=== PATIENT | female | born 1935 | race Caucasian/White ===

== ENCOUNTER → 2017-07-11 | Outpatient (CLI) | payer MEDICARE, BC ==
--- NOTE | 2017-07-11 16:13 | BD ---
EXAMINATION TYPE: MG DEXA axial skeleton. DATE OF EXAM: 07/11/2017 COMPARISON: 2013 CLINICAL HISTORY: 81-year-old female chronic steroids Height: 4'10 Weight: 119 FRAX RISK QUESTIONS: Alcohol (3 or more units per day): no Family History (Parent hip fracture): no Glucocorticoids (More than 3mos): yes (Ex: prednisone, prednisolone, methylprednisolone, dexamethasone, and hydrocortisone). History of Fracture in Adulthood: yes Secondary Osteoporosis: 1. Type 1 Diabetes: no 2. Hyperthyroidism: no 3. Menopause before 45: no 4. Malnutrition: no 5. Chronic liver disease: no Rheumatoid Arthritis: no Current Tobacco Use: no RISK FACTORS HISTORY OF: Spine Fracture: L1 When: 2013 Family History of Osteoporosis: Active: Postmenopausal woman: Lost more than 2 inches in height since high school: Poor Health: MEDICATIONS: Prednisone or other steroids: yes How Lon months Additional Medications: blood pressure, cholesterol, Additional History: EXAM MEASUREMENTS: Bone mineral densitometry was performed using the Xcedex System. Bone mineral density about the R hip (g/cm2): 0.704 Bone mineral density about the L hip (g/cm2): 0.692 T Score values are as follows: -----R Neck: -2.4 -----L Neck: -2.5 -----R Total: -1.8 -----L Total: -1.7 Bone mineral density has: Increased 4.8% since study of: 07/08/2014 IMPRESSION: Osteoporosis as indicated by T score values within the left femoral neck. There is increased fracture risk and therapy is usually indicated based on age. Re-Screen 1-2 years. NOTE: T-SCORE=SD OF THE YOUNG ADULT MEAN.
== END | disposition home or self-care (01) ==
LOC: RADBDWWP 14:28
PROVIDERS: ATTEND Internal Medicine
DX: M81.0 Age-related osteoporosis without current pathological fracture (principal); Z79.52 Long term (current) use of systemic steroids
CPT/HCPCS: 77080

== ENCOUNTER 2017-09-09 14:43 | Inpatient (IN) | payer MEDICARE, BC ==
[2017-09-09] MEDS ORDERED: IPRATROPIUM 0.5 MG/2.5 ML NEBU INHALATION STA (15:33)
[2017-09-09] MEDS ORDERED: ALBUTEROL NEBULIZED 2.5 MG/3 ML INHALATION STA (15:33)
[2017-09-09] MEDS ORDERED: DEXAMETHASONE SOD PHOSPHATE 10 MG/ML 1 ML VIAL IV STA (15:34)
[2017-09-09 15:43] LABS: Basophils # (A) 0.1 k/uL (0-0.2); Basophils % (A) 1 %; CH 30.2; Eosinophils # (A) 0.6 k/uL (0-0.7); Eosinophils % (A) 6 %; HCT 40.8 % (34.0-46.0); HDW 2.38; HGB 13.2 gm/dL (11.4-16.0); Luc # (Auto) 0.16; Luc % (Auto) 2; Lymphocytes # (A) 1.8 k/uL (1.0-4.8); Lymphocytes % (A) 20 %; MCH 30.8 pg (25.0-35.0); MCHC 32.4 g/dL (31.0-37.0); MCV 94.9 fL (80.0-100.0); Mean Platelet Volume 9.3; Monocytes # (A) 0.7 k/uL (0-1.0); Monocytes % (A) 8 %; Neutrophils % (A) 64 %; RDW 13.5 % (11.5-15.5); WBC 9.3 k/uL (3.8-10.6); WBC (Perox) 9.85
--- NOTE | 2017-09-09 15:47 | ED ---
General Adult HPI - General Chief complaint: Shortness of Breath Stated complaint: SOB Time Seen by Provider: 09/09/17 15:01 Source: patient, RN notes reviewed, old records reviewed Mode of arrival: wheelchair Limitations: no limitations - History of Present Illness Initial comments: 81-year-old female presents with chief complaint of worsening dyspnea. Patient has history of COPD, currently on 2 L of home O2. She states she has had approximately 2 weeks of worsening dyspnea. Denies chest pain. Denies fever. She also complains of some nasal congestion. She does have a mild cough which is unchanged from baseline. Patient was previously on steroids, she has been weaned off, she is currently taking 2.5 mg of prednisone daily. Patient does not take breathing treatments at home. - Related Data Home Medications Medication Instructions Recorded Confirmed Albuterol Inhaler [Ventolin Hfa 2 puff INHALATION RT-QID PRN 09/09/17 09/09/17 Inhaler] Alendronate Sodium [Fosamax] 70 mg PO WE 09/09/17 09/09/17 Cholecalciferol [Vitamin D3] 2,000 unit PO DAILY 09/09/17 09/09/17 Fluticasone/Vilanterol [Breo 1 puff INHALATION RT-DAILY 09/09/17 09/09/17 Ellipta 200-25 Mcg INH] Gabapentin [Neurontin] 300 mg PO TID 09/09/17 09/09/17 Ipratropium/Albuterol Sulfate 2 puff INHALATION RT-TID 09/09/17 09/09/17 [Combivent Respimat Inhaler] Losartan Potassium [Cozaar] 100 mg PO DAILY 09/09/17 09/09/17 Metoprolol Tartrate [Lopressor] 25 mg PO TID 09/09/17 09/09/17 Multivitamins, Thera [Multivitamin 1 tab PO DAILY 09/09/17 09/09/17 (formulary)] Simvastatin [Zocor] 20 mg PO HS 09/09/17 09/09/17 amLODIPine [Norvasc] 5 mg PO DAILY 09/09/17 09/09/17 predniSONE 2.5 mg PO DAILY 09/09/17 09/09/17 Allergies Allergy/AdvReac Type Severity Reaction Status Date / Time No Known Allergies Allergy Verified 09/09/17 15:15 Review of Systems ROS Statement: Those systems with pertinent positive or pertinent negative responses have been documented in the HPI. ROS Other: All systems not noted in ROS Statement are negative. Past Medical History Past Medical History: COPD History of Any Multi-Drug Resistant Organisms: None Reported Additional Past Surgical History / Comment(s): colonoscopy Past Psychological History: No Psychological Hx Reported Smoking Status: Former smoker Past Alcohol Use History: Daily Past Drug Use History: None Reported General Exam Limitations: no limitations General appearance: alert, in no apparent distress Head exam: Present: atraumatic, normocephalic Eye exam: Present: normal appearance, PERRL ENT exam: Present: normal exam Neck exam: Present: normal inspection. Absent: tenderness, meningismus Respiratory exam: Present: wheezes, decreased breath sounds, prolonged expiratory Cardiovascular Exam: Present: regular rate, normal rhythm GI/Abdominal exam: Present: soft. Absent: distended, tenderness Extremities exam: Present: normal inspection, normal capillary refill. Absent: pedal edema, calf tenderness Neurological exam: Present: alert, oriented X3, CN II-XII intact. Absent: motor sensory deficit Psychiatric exam: Present: normal affect, normal mood Skin exam: Present: warm, dry, intact. Absent: cyanosis, diaphoretic Course Vital Signs 09/09/17 09/09/17 09/09/17 14:45 15:48 15:58 Temperature 97.9 F Pulse Rate 103 H 94 86 Respiratory 20 22 Rate Blood Pressure 170/80 164/80 O2 Sat by Pulse 90 L 96 Oximetry 09/09/17 09/09/17 09/09/17 16:04 16:10 16:21 Temperature Pulse Rate 85 86 86 Respiratory Rate Blood Pressure O2 Sat by Pulse Oximetry 09/09/17 09/09/17 16:48 17:48 Temperature Pulse Rate 90 94 Respiratory 20 20 Rate Blood Pressure 164/79 161/77 O2 Sat by Pulse 95 95 Oximetry EKG Findings - EKG Comments: EKG Findings:: EKG shows normal sinus rhythm, ventricular rate 94, [place] interval 168, QRS duration 70, QTC 465 no signs of ischemia Medical Decision Making - Medical Decision Making 81-year-old female with history COPD presents with worsening dyspnea. On examination patient has diminished bilaterally with end expiratory wheezing. Minimal air entry. Chest x-ray shows hyperinflation, no focal pneumonia. White blood cell count is normal and 0.3, hemoglobin stable 15.2, troponin negative, magnesium 1.4 and is replaced. On reevaluation, patient remains dyspneic, conversational dyspnea, tachypnea, oxygen saturation 89-91 on 2 L nasal cannula. Patient will be admitted for continued nebulized albuterol, Atrovent, and steroids. - Lab Data Result diagrams: 09/09/17 15:00 09/09/17 15:00 Lab Results 09/09/17 09/09/17 09/09/17 Range/Units 15:00 15:00 15:00 WBC 9.3 (3.8-10.6) k/uL RBC 4.30 (3.80-5.40) m/uL Hgb 13.2 (11.4-16.0) gm/dL Hct 40.8 (34.0-46.0) % MCV 94.9 (80.0-100.0) fL MCH 30.8 (25.0-35.0) pg MCHC 32.4 (31.0-37.0) g/dL RDW 13.5 (11.5-15.5) % Plt Count 213 (150-450) k/uL Neutrophils % 64 % Lymphocytes % 20 % Monocytes % 8 % Eosinophils % 6 % Basophils % 1 % Neutrophils # 6.0 (1.3-7.7) k/uL Lymphocytes # 1.8 (1.0-4.8) k/uL Monocytes # 0.7 (0-1.0) k/uL Eosinophils # 0.6 (0-0.7) k/uL Basophils # 0.1 (0-0.2) k/uL PT (9.0-12.0) sec INR (<1.2) APTT (22.0-30.0) sec Sodium 140 (137-145) mmol/L Potassium 4.4 (3.5-5.1) mmol/L Chloride 102 (98-107) mmol/L Carbon Dioxide 29 (22-30) mmol/L Anion Gap 9 mmol/L BUN 20 H (7-17) mg/dL Creatinine 0.80 (0.52-1.04) mg/dL Est GFR (MDRD) Af Amer >60 (>60 ml/min/1.73 sqM) Est GFR (MDRD) Non-Af >60 (>60 ml/min/1.73 sqM) Glucose 120 H (74-99) mg/dL Calcium 10.1 (8.4-10.2) mg/dL Magnesium 1.4 L (1.6-2.3) mg/dL Total Bilirubin 0.5 (0.2-1.3) mg/dL AST 37 H (14-36) U/L ALT 41 (9-52) U/L Alkaline Phosphatase 63 (38-126) U/L Total Creatine Kinase 193 H (30-135) U/L CK-MB (CK-2) 5.3 H* (0.0-2.4) ng/mL CK-MB (CK-2) Rel Index 2.7 Troponin I <0.012 (0.000-0.034) ng/mL NT-Pro-B Natriuret Pep pg/mL Total Protein 7.0 (6.3-8.2) g/dL Albumin 4.4 (3.5-5.0) g/dL 09/09/17 09/09/17 Range/Units 15:00 15:00 WBC (3.8-10.6) k/uL RBC (3.80-5.40) m/uL Hgb (11.4-16.0) gm/dL Hct (34.0-46.0) % MCV (80.0-100.0) fL MCH (25.0-35.0) pg MCHC (31.0-37.0) g/dL RDW (11.5-15.5) % Plt Count (150-450) k/uL Neutrophils % % Lymphocytes % % Monocytes % % Eosinophils % % Basophils % % Neutrophils # (1.3-7.7) k/uL Lymphocytes # (1.0-4.8) k/uL Monocytes # (0-1.0) k/uL Eosinophils # (0-0.7) k/uL Basophils # (0-0.2) k/uL PT 10.9 (9.0-12.0) sec INR 1.1 (<1.2) APTT 22.7 (22.0-30.0) sec Sodium (137-145) mmol/L Potassium (3.5-5.1) mmol/L Chloride (98-107) mmol/L Carbon Dioxide (22-30) mmol/L Anion Gap mmol/L BUN (7-17) mg/dL Creatinine (0.52-1.04) mg/dL Est GFR (MDRD) Af Amer (>60 ml/min/1.73 sqM) Est GFR (MDRD) Non-Af (>60 ml/min/1.73 sqM) Glucose (74-99) mg/dL Calcium (8.4-10.2) mg/dL Magnesium (1.6-2.3) mg/dL Total Bilirubin (0.2-1.3) mg/dL AST (14-36) U/L ALT (9-52) U/L Alkaline Phosphatase (38-126) U/L Total Creatine Kinase (30-135) U/L CK-MB (CK-2) (0.0-2.4) ng/mL CK-MB (CK-2) Rel Index Troponin I (0.000-0.034) ng/mL NT-Pro-B Natriuret Pep 190 pg/mL Total Protein (6.3-8.2) g/dL Albumin (3.5-5.0) g/dL Disposition Clinical Impression: Acute exacerbation of chronic obstructive airways disease Disposition: ADMITTED IP TO THIS HOSP Condition: Stable Referrals: Jose Rascon MD [Primary Care Provider] - 1-2 days Decision to Admit Reason: Admit from EC Decision Date: 09/09/17 Decision Time: 18:10
[2017-09-09 16:04] LABS: INR 1.1 (<1.2); Partial Thromboplastin Time 22.7 sec (22.0-30.0); Prothrombin Time 10.9 sec (9.0-12.0)
[2017-09-09 16:10] LABS: ALT 41 U/L (9-52); AST 37 U/L (14-36); Alkaline Phosphatase 63 U/L (38-126); Anion Gap 9 mmol/L; Blood Urea Nitrogen 20 mg/dL (7-17); Calcium 10.1 mg/dL (8.4-10.2); Carbon Dioxide 29 mmol/L (22-30); Chloride 102 mmol/L (98-107); Creatine Kinase 193 U/L (30-135); Glucose 120 mg/dL (74-99); Magnesium 1.4 mg/dL (1.6-2.3); Non-African American GFR(MDRD) >60 (>60 ml/min/1.73 sqM); Potassium 4.4 mmol/L (3.5-5.1); Sodium 140 mmol/L (137-145); Total Bilirubin 0.5 mg/dL (0.2-1.3)
[2017-09-09 16:21] LABS: Troponin I <0.012 ng/mL (0.000-0.034)
[2017-09-09 16:29] LABS: Creatine Kinase MB 5.3 ng/mL (0.0-2.4)
--- NOTE | 2017-09-09 16:45 | XR ---
EXAMINATION TYPE: XR chest 2V DATE OF EXAM: 09/09/2017 COMPARISON: 12/16/2016 HISTORY: Shortness of breath TECHNIQUE: Frontal and lateral views of the chest are obtained. FINDINGS: Extensive costochondral cartilage calcifications are seen overlying the right hemithorax. Pulmonary hyperinflation and biapical lucency as well as increased anterior posterior diameter of the chest and flattening the diaphragms on the lateral image relates to underlying COPD. No focal consol idation, pleural effusion or pneumothorax. Exaggerated thoracic kyphosis is seen in addition to multi level moderate degenerative changes of the thoracic spine. Generalized osseous demineralization is pr esent. Mild atheromatous calcific changes of the descending thoracic aorta. IMPRESSION: Radiographic sequela of COPD. No acute cardiopulmonary process.
[2017-09-09] MEDS ORDERED: MAGNESIUM SULFATE-D5W PMX 1 GM in DEXTROSE/WATER 1 100ML.BAG IVPB ONE (17:11)
[2017-09-09] MEDS ORDERED: IPRATROPIUM-ALBUTEROL 3 ML NEB INHALATION PRN (18:07)
[2017-09-09] MEDS: IPRATROPIUM-ALBUTEROL 3 ML NEB INHALATION SCH (20:51)
--- NOTE | 2017-09-09 21:21 | HP ---
HISTORY AND PHYSICAL CHIEF COMPLAINT: Shortness of breath. HISTORY OF PRESENT ILLNESS: This elderly female presents to the emergency room with complaints of shortness of breath. The patient states she had dyspnea with minimal activity. She was seen in the ER. The ER physicians admitted the patient after discussing with Dr. Perez, who was premix concrete batcher. However, I was in the hospital and I did see the patient in the ER. The patient appears to be fairly comfortable, sitting at present after her treatments. She says her symptoms started more today. The patient actually was seen for a routine follow-up visit yesterday when she was noted to be doing fairly well. She denies any symptoms of upper respiratory infection, any chest pain, palpitations. The patient has a history of COPD. The patient has significantly advanced COPD. In my assessment, the patient has stage IV COPD; however, the rag production worker has labeled her as stage III COPD. The patient follows with Dr. Vick. She is noted to have no fever. She does have some cough with minimal sputum production. She has been on prednisone, which has actually been tapered down to 2.5 mg daily by the rag production worker. 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 PAST MEDICAL HISTORY: Past medical history is primarily significant for: 1. Hypertension, on medical therapy. 2. Degenerative arthritis. 3. Hyperlipidemia. 4. She also has had some chronic pain from lumbar degenerative disc disease and she is on gabapentin, with help. PERSONAL HISTORY: Smoker for at least 50 years. No alcohol. ALLERGIES: NONE KNOWN TO MEDICATIONS. MEDICATIONS AT PRESENT: Medications at present include: 1. Zocor 20 mg daily. 2. Vitamin D3 2000 units daily. 3. Ventolin inhaler p.r.n. 4. Prednisone 2.5 mg daily. 5. Multivitamins 1 tablet daily. 6. Metoprolol 25 mg t.i.d. 7. Losartan 100 mg daily. 8. Neurontin 300 mg t.i.d. 9. Norvasc 5 mg daily. 10.Combivent p.r.n. 11.Breo 200/25 one puff daily. 12.Fosamax 70 mg every Tuesday. 13.The patient also has DuoNeb updrafts, which she says is time-consuming and tedious, so she does not use them. SOCIAL HISTORY: Patient is , lives with the family. FAMILY MEDICAL HISTORY: Negative for any major genetic disorders. The patient's daughter is 63 years of age, in good health, with history of palpitation. REVIEW OF SYSTEMS: NEURO: Denies any headaches, dizziness. No double vision or blurred vision. PSYCH: Some anxiety. CARDIAC: Denies chest pain, angina, palpitations. RESPIRATORY: Present complaint of shortness of breath. Mild cough. No hemoptysis. GI: No nausea, vomiting, abdominal pain, diarrhea. : No symptoms of dysuria, hematuria, urgency, frequency. EXTREMITIES: Denies pain, edema. CONSTITUTIONAL: No fever, chills. HEMATOLOGICAL: No anemia or bleeding disorder. ENDOCRINE: No history of diabetes mellitus, hypothyroidism. SKIN: Denies rashes. PHYSICAL EXAMINATION: Pleasant female, at present resting comfortably post treatments, and in no acute distress otherwise. At the time of ER visit, the patient's temperature was 97.9, pulse 103, respirations 20, blood pressure 170/80, pulse ox 90% on room air. HEENT: Normocephalic. Pupils are reactive, conjunctivae pink. Oral cavity is moist. Patient's face is cushingoid. NECK: No JVD. Chest examination reveals increased A/P diameter, generalized decreased air floor, occasional rhonchi. No wheezing appreciated. CARDIAC: Distant heart sounds S1, S2 with no gallop. Systolic murmur 2/6, left sternal border. ABDOMEN: Soft. No palpable masses. Bowel sounds normal. No hepatomegaly. No abdominal bruits. Extremities reveal no edema. Good pulses, both upper and lower extremities. Neurologically awake, alert, oriented x3 with well-coordinated movements. LABORATORY ASSESSMENT: CBC was normal. PT, PTT are normal. Chemistries are normal. BUN 20. Glucose was 120. Magnesium was low at 1.4 and was replaced in the era. CK was 193, troponins negative. BNP 190. Chest x-ray reveals COPD with no acute pulmonary changes. EKG essentially unremarkable. ASSESSMENT: 1. Advanced chronic obstructive pulmonary disease exacerbation. 2. Acute on chronic respiratory failure. 3. Hypertension, on medical therapy. PLAN: The patient is admitted to the hospital and will be placed on steroids, updrafts. The patient's condition was discussed with the patient and spouse. Prognosis remains guarded. Expect the patient's condition to stabilize in a couple of days. MMODL / IJN: [id number] /
[2017-09-09] MEDS: METOPROLOL TARTRATE 25 MG TAB PO SCH (21:55)
[2017-09-09] MEDS: ATORVASTATIN 10 MG TAB PO SCH (21:55)
[2017-09-09] MEDS: GABAPENTIN 300 MG CAP PO SCH (21:56)
[2017-09-09 23:18] VITALS: BMI 25.4
[2017-09-10] MEDS: methylPREDNISolone SOD SUCCI 40 MG/ML 1 ML VIAL IV SCH ×4 (00:22→17:22)
[2017-09-10] MEDS ORDERED: BUDESONIDE 1 MG/2 ML NEBU INHALATION SCH (08:00)
[2017-09-10] MEDS ORDERED: SYMBICORT 160-4.5 MCG INHALER INHALATION SCH (08:00)
[2017-09-10] MEDS: IPRATROPIUM-ALBUTEROL 3 ML NEB INHALATION SCH ×5 (08:35→20:50)
[2017-09-10] MEDS ORDERED: predniSONE 20 MG TAB PO SCH (09:00)
[2017-09-10] MEDS: METOPROLOL TARTRATE 25 MG TAB PO SCH ×3 (09:04→21:17)
[2017-09-10] MEDS: AZITHROMYCIN 500 MG TAB PO SCH (09:05)
[2017-09-10] MEDS: LOSARTAN 50 MG TAB PO SCH (09:05)
[2017-09-10] MEDS: CHOLECALCIFEROL 1,000 UNIT TAB PO SCH (09:05)
[2017-09-10] MEDS: amLODIPine 5 MG TAB PO SCH (09:05)
[2017-09-10] MEDS: GABAPENTIN 300 MG CAP PO SCH ×3 (09:05→21:17)
[2017-09-10] MEDS: MULTIVITAMINS, THERA 1 EACH TAB PO SCH (11:59)
[2017-09-10 12:10] LABS: Glucose,Whole Blood 189 mg/dL (75-99)
--- NOTE | 2017-09-10 13:36 | P.CNPUL ---
History of Present Illness Consult date: 09/10/17 Reason for consult: dyspnea, COPD, hypoxemia Chief complaint: Shortness of breath History of present illness: Consult dated 09/10/2017 81-year-old female with history of underlying severe oxygen-dependent COPD. She apparently presented to the emergency department with worsening shortness of breath. In addition, she had a bit of a cough. Not producing much phlegm. A bit of nasal congestion. No chest pain. No fever chills. No nausea vomiting or diarrhea. The patient does take a daily dose of prednisone I believe 2-1/2 or 5 mg a day. Her COPD is quite severe and she is very limited has profound dyspnea on exertion. In addition to COPD, she has a history of hypertension hyperlipidemia osteoporosis vitamin D deficiency. Unfortunately, she does continue to smoke. She does use oxygen on a daily basis. Occasional she'll turn at 1 L when she feeling more short of breath. As I mentioned earlier, she is also prednisone dependent. I see her in the office for her COPD. Review of Systems A 12 point review of system is positive for shortness of breath on exertion and cough which is mostly nonproductive. Past Medical History Past Medical History: COPD, Hyperlipidemia, Hypertension, Osteoarthritis (OA) History of Any Multi-Drug Resistant Organisms: None Reported Additional Past Surgical History / Comment(s): colonoscopy Past Anesthesia/Blood Transfusion Reactions: No Reported Reaction Past Psychological History: No Psychological Hx Reported Smoking Status: Former smoker Past Alcohol Use History: Daily Additional Past Alcohol Use History / Comment(s): 1-2 drinks a day Past Drug Use History: None Reported Medications and Allergies Home Medications Medication Instructions Recorded Confirmed Type Albuterol Inhaler [Ventolin Hfa 2 puff INHALATION RT-QID PRN 09/09/17 09/09/17 History Inhaler] Alendronate Sodium [Fosamax] 70 mg PO WE 09/09/17 09/09/17 History Cholecalciferol [Vitamin D3] 2,000 unit PO DAILY 09/09/17 09/09/17 History Fluticasone/Vilanterol [Breo 1 puff INHALATION RT-DAILY 09/09/17 09/09/17 History Ellipta 200-25 Mcg INH] Gabapentin [Neurontin] 300 mg PO TID 09/09/17 09/09/17 History Ipratropium/Albuterol Sulfate 2 puff INHALATION RT-TID 09/09/17 09/09/17 History [Combivent Respimat Inhaler] Losartan Potassium [Cozaar] 100 mg PO DAILY 09/09/17 09/09/17 History Metoprolol Tartrate [Lopressor] 25 mg PO TID 09/09/17 09/09/17 History Multivitamins, Thera [Multivitamin 1 tab PO DAILY 09/09/17 09/09/17 History (formulary)] Simvastatin [Zocor] 20 mg PO HS 09/09/17 09/09/17 History amLODIPine [Norvasc] 5 mg PO DAILY 09/09/17 09/09/17 History predniSONE 2.5 mg PO DAILY 09/09/17 09/09/17 History Allergies Allergy/AdvReac Type Severity Reaction Status Date / Time No Known Allergies Allergy Verified 09/09/17 15:15 Physical Exam Osteopathic Statement: *. No significant issues noted on an osteopathic structural exam other than those noted in the History and Physical/Consult. Vitals: Vital Signs Temp Pulse Pulse Resp BP BP Pulse Ox 09/10/17 11:56 88 09/10/17 11:43 88 09/10/17 08:54 88 09/10/17 08:35 88 09/10/17 08:00 97.3 F L 97 17 178/79 92 L 09/10/17 04:00 97.5 F L 111 H 18 96 09/09/17 23:38 97.5 F L 112 H 18 147/69 92 L 09/09/17 21:03 84 09/09/17 20:51 84 09/09/17 20:00 96.6 F L 107 H 18 139/64 92 L 09/09/17 18:33 97.8 F 89 18 155/74 92 L 09/09/17 18:25 92 L 09/09/17 17:48 94 20 161/77 95 09/09/17 16:48 90 20 164/79 95 09/09/17 16:21 86 09/09/17 16:10 86 09/09/17 16:04 85 09/09/17 15:58 86 09/09/17 15:48 94 22 164/80 96 09/09/17 14:45 97.9 F 103 H 20 170/80 90 L Intake and Output 09/09/17 09/10/1709/10/17 22:59 06:59 14:59 Output Total 250 300 Balance -250 -300 Output: Urine 250 300 Other: Voiding Method Toilet Toilet # Voids 1 1 1 Weight 55.338 kg 56.2 kg No acute distress, oriented 3. Nasal O2 in place. HEENT examination is grossly unremarkable. Mucous membranes are moist. No oral lesions. Neck supple. Full range of motion. No adenopathy or thyromegaly. Cardiovascular examination reveals regular rhythm rate. She's not tachycardic. S1-S2 normal. Lung sounds are mostly clear but severely diminished. I really don't hear any adventitious lung sounds is wheezes rhonchi or crackles. Abdomen soft bowel sounds are heard. Extremities are intact. No cyanosis clubbing or edema. Skin is without rash. Neurologic examination is nonfocal. Results - Laboratory Findings CBC and BMP: 09/09/17 15:00 09/09/17 15:00 PT/INR, D-dimer PT 10.9 sec (9.0-12.0) 09/09/17 15:00 INR 1.1 (<1.2) 09/09/17 15:00 Abnormal lab findings: Abnormal Labs 09/09/17 09/09/17 09/10/17 15:00 15:00 12:09 BUN 20 H Glucose 120 H POC Glucose (mg/dL) 189 H Magnesium 1.4 L AST 37 H Total Creatine Kinase 193 H CK-MB (CK-2) 5.3 H* - Diagnostic Findings Chest x-ray: image reviewed (X-rays labs and medications are all reviewed.) Assessment and Plan (1) Hyperlipidemia Current Visit: Yes Status: Acute Code(s): E78.5 - HYPERLIPIDEMIA, UNSPECIFIED SNOMED Code(s): 85875052 (2) Hypertension Current Visit: Yes Status: Acute Code(s): I10 - ESSENTIAL (PRIMARY) HYPERTENSION SNOMED Code(s): 94738491 (3) Hypoxemia Current Visit: Yes Status: Acute Code(s): R09.02 - HYPOXEMIA SNOMED Code(s ): 221321666 (4) Pulmonary hypertension Current Visit: Yes Status: Acute Code(s): I27.20 - PULMONARY HYPERTENSION, UNSPECIFIED SNOMED Code(s): 93469150 (5) Osteoporosis Current Visit: Yes Status: Acute Code(s): M81.0 - AGE-RELATED OSTEOPOROSIS W /O CURRENT PATHOLOGICAL FRACTURE SNOMED Code(s): 89488797 (6) Acute exacerbation of chronic obstructive airways disease Current Visit: Yes Status: Acute Code(s): J44.1 - CHRONIC OBSTRUCTIVE PULMONARY DISEASE W (ACUTE) EXACERBATION SNOMED Code(s): 951661814 Plan: Plan dated 09/10/2017 The patient should be treated in the standard fashion with updrafts with albuterol and Atrovent 4 times a day and when necessary. In addition, she should receive Pulmicort 1 mg twice a day and Solu-Medrol 60 mg every 6 hours. Probably no need for an antibiotic but if she does get one, something orally can be present provided her for a few days. No additional recommendations are made. We'll continue to follow. Overall prognosis is guarded. She should see me in the office on follow-up. Time with Patient: Greater than 30
--- NOTE | 2017-09-10 15:32 | PN ---
PROGRESS NOTE Should dictating patient Ramon CUADRA . ATTENDING PHYSICIAN: Dr. Linden Rascon. CHIEF COMPLAINT: Re-evaluation. HISTORY OF PRESENT ILLNESS: This is a 81-year-old female was admitted to the hospital with some shortness of breath. The patient has a history of COPD with fairly advanced disease. The patient has been on prednisone 2.5 mg. The patient was seen on the outpatient by the Pulmonary as well. She denies any symptoms of infection. REVIEW OF SYSTEMS: Neuro denies any headaches or dizziness. Psych no anxiety. Cardiac: No chest pain, angina or palpitation. Respiratory improved shortness of breath. Some cough. No hemoptysis. GI no nausea, vomiting, abdominal pain, diarrhea. no symptoms of dysuria, hematuria, urgency, frequency. Extremities no pain or edema. Constitutional: No fever or chills. PHYSICAL EXAMINATION: 81-year-old female, appears stated age, in no distress at present. She has cushingoid features. Vital signs reveals temperature 97.3, pulse 97, respirations 17, blood pressure 178/79, pulse ox 92% on 2 L. HEENT: Normocephalic. Neck no JVD. Chest examination generalized decreased air flow. No rhonchi or wheezing. Cardiac distant heart sounds S1, S2 with no gallops. Systolic murmur 2/6 left sternal border. ABDOMEN: Soft. Bowel sounds present. EXTREMITIES: No edema. NEUROLOGIC: Awake, alert, oriented with well-coordinated movements. LAB ASSESSMENT: Blood sugar of 189. ASSESSMENT: 1. Acute exacerbation of chronic obstructive pulmonary disease. 2. Chronic obstructive lung disease secondary to long history of smoking. 3. Hypertension on medical therapy. 4. History of hyperlipidemia. PLAN: Continue present medical regimen. Patient's condition discussed with the patient. Prognosis remains guarded. Pulmonary will be seeing the patient. We will continue present regimen including steroids. Anticipate discharge in the next 48 hours. MMODL / IJN: [id number] /
[2017-09-10 16:39] LABS: Glucose,Whole Blood 127 mg/dL (75-99)
[2017-09-10] MEDS: INSULIN ASPART 100 UNIT/ML 1 ML 10 ML VIAL SQ SCH ×2 (16:46→21:17)
[2017-09-10] MEDS: HEPARIN SODIUM,PORCINE 5,000 UNIT/ML 1 ML VIAL SQ SCH (16:48)
[2017-09-10] MEDS ORDERED: INSULIN ASPART 100 UNIT/ML 1 ML 10 ML VIAL SQ SCH (17:30)
[2017-09-10] MEDS: SYMBICORT 160-4.5 MCG INHALER INHALATION SCH ×2 (20:16→20:50)
[2017-09-10 20:55] LABS: Glucose,Whole Blood 123 mg/dL (75-99)
[2017-09-10] MEDS: ATORVASTATIN 10 MG TAB PO SCH (21:17)
[2017-09-11] MEDS: methylPREDNISolone SOD SUCCI 40 MG/ML 1 ML VIAL IV SCH ×5 (00:07→23:48)
[2017-09-11] MEDS: HEPARIN SODIUM,PORCINE 5,000 UNIT/ML 1 ML VIAL SQ SCH ×4 (00:07→23:49)
[2017-09-11 06:16] LABS: Glucose,Whole Blood 144 mg/dL (75-99)
[2017-09-11] MEDS: INSULIN ASPART 100 UNIT/ML 1 ML 10 ML VIAL SQ SCH ×4 (06:19→21:20)
[2017-09-11] MEDS: IPRATROPIUM-ALBUTEROL 3 ML NEB INHALATION SCH ×5 (07:55→20:52)
[2017-09-11] MEDS: SYMBICORT 160-4.5 MCG INHALER INHALATION SCH ×3 (07:56→20:52)
[2017-09-11] MEDS: METOPROLOL TARTRATE 25 MG TAB PO SCH ×3 (08:55→21:19)
[2017-09-11] MEDS: CHOLECALCIFEROL 1,000 UNIT TAB PO SCH (08:56)
[2017-09-11] MEDS: GABAPENTIN 300 MG CAP PO SCH ×3 (08:56→21:20)
[2017-09-11] MEDS: LOSARTAN 50 MG TAB PO SCH (08:56)
[2017-09-11] MEDS: amLODIPine 5 MG TAB PO SCH (08:56)
[2017-09-11] MEDS: AZITHROMYCIN 500 MG TAB PO SCH (08:56)
--- NOTE | 2017-09-11 11:17 | P.PN ---
Subjective Progress Note Date: 09/11/17 History present illness: This 81-year-old female was admitted to the hospital because of shortness of breath predominantly dyspneic on exertion with minimal activity. No symptoms of CHF. Patient does have chronic obstructive lung disease fairly advanced. She is on oxygen at home 2. The patient is being followed by pulmonary on the outpatient as well. She denies any chest pain palpitations. The patient with OXYGEN and steroids is feeling some better. Patient does have dyspnea on exertion which is as a progression of her COPD. REVIEW OF SYSTEMS: Neuro:[ Denies any headaches dizziness.] Psych: [Denies anxiety depression feels oriented.] Cardiac: [Denies chest pain and angina palpitations.] Respiratory: Shortness of breath and dyspnea negative. Minimal cough.. GI: [Denies nausea vomiting or abdominal pain. No diarrhea or constipation, no bowel movement yet.] :[ Denies dysuria hematuria.] Extremities:[ Denies pain. No edema.] Skin:[ Intact]. Constitutional: [No fever, chills.] Objective - Vital Signs Vital signs: Vital Signs Temp 97.0 F L 09/11/17 08:00 Pulse 96 09/11/17 08:10 Resp 17 09/11/17 08:00 BP 152/65 09/11/17 04:00 Pulse Ox 93 L 09/11/17 08:00 Intake & Output 09/10/17 09/11/17 09/11/17 18:59 06:59 18:59 Intake Total 120 10 Balance 120 10 Weight 53.5 kg Intake: IV 10 0.9 10 Oral 120 Other: Voiding Method Toilet Toilet # Voids 1 1 PHYSICAL EXAMINATION: Cooperative, at present in no acute distress. Cushingoid features HEENT: Neck supple. No JVD. Chest: Clear to auscultation with generalized decreased airflow with no rhonchi or wheezing generalized bilateral increased percussion note Cardiac: Normal S1 and S2 distant heart sounds no gallops systolic murmur left sternal border 2 x 6. Abdomen: Soft bowel sounds present. Extremities: No edema no tenderness Neurologically: Awake, alert, oriented with well-coordinated movements. - Labs CBC & Chem 7: 09/09/17 15:00 09/09/17 15:00 Labs: Abnormal Lab Results - Last 24 Hours (Table) 09/10/17 09/10/1709/10/17 Range/Units 12:09 16:34 20:50 POC Glucose (mg/dL) 189 H 127 H 123 H (75-99) mg/dL 09/11/17 Range/Units 06:15 POC Glucose (mg/dL) 144 H (75-99) mg/dL Assessment and Plan Assessment: ASSESSMENT: 1. Acute exacerbation COPD. 2. acute on chronic respiratory failure. 3. Hypertension medical therapy. 4. Compensatory sinus tachycardia due to hypoxia and respiratory failure. 5. Hyperlipidemia on medical therapy. PLAN: Continue present medical regimen. Patient on steroids, oxygen, of breath and Zithromax. Patient is also followed by the casing soaker. Potential discharge home tomorrow.
--- NOTE | 2017-09-11 11:24 | P.PN ---
Subjective Progress Note Date: 09/11/17 Principal diagnosis: COPD exacerbation Progress note dated 09/11/2017 This is an 81-year-old female well-known to my service. She has history of severe oxygen-dependent COPD. She presented to the emergency department with complaints of increasing shortness of breath. She had a bit of a cough. Not producing much phlegm. She did have a lot of nasal congestion. No chest pain. No fever chills nausea vomiting or diarrhea. The patient doesn't take a small dose of prednisone on a daily basis. Her primary is Dr. Rascon. In addition to COPD, she has a history of hypertension hyperlipidemia osteoporosis and vitamin D deficiency. She does continue to smoke. Anyway today she's feeling a bit better. I think Dr. Rascon's plan is to possibly discharge in next day or so. I looked at her med list yesterday what was ordered, had not much to add. She is on appropriate medications. Again feeling a bit better today than she did yesterday. Objective - Vital Signs Vital signs: Vital Signs Temp 97.0 F L 09/11/17 08:00 Pulse 96 09/11/17 08:10 Resp 17 09/11/17 08:00 BP 152/65 09/11/17 04:00 Pulse Ox 93 L 09/11/17 08:00 Intake & Output 09/10/17 09/11/17 09/11/17 18:59 06:59 18:59 Intake Total 120 10 Balance 120 10 Weight 53.5 kg Intake: IV 10 0.9 10 Oral 120 Other: Voiding Method Toilet Toilet # Voids 1 1 - Exam No acute distress, oriented 3. Mildly tachypneic HEENT examination is grossly unremarkable. Mucous membranes are moist. No oral lesions. Neck supple. Full range of motion. No adenopathy thyromegaly or neck vein distention. Cardiovascular examination reveals regular rhythm rate. S1-S2 normal. No S3 or S4. No discernible murmur noted. Lungs reveal severely diminished breath sounds. A few scattered rhonchi and wheezes. Breath sounds are diminished bilaterally. Breath sounds are equal. No crackles. Abdomen soft bowel sounds are heard. No masses or tenderness. Extremities are intact. No cyanosis clubbing or edema. Skin is without rash or lesion. Neurologic examination is brief but nonfocal. - Labs CBC & Chem 7: 09/09/17 15:00 09/09/17 15:00 Labs: Abnormal Lab Results - Last 24 Hours (Table) 09/10/17 09/10/17 09/10/17 Range/Units 12:09 16:34 20:50 POC Glucose (mg/dL) 189 H 127 H 123 H (75-99) mg/dL 09/11/17 Range/Units 06:15 POC Glucose (mg/dL) 144 H (75-99) mg/dL Assessment and Plan (1) Hyperlipidemia Current Visit: Yes Status: Acute Code(s): E78.5 - HYPERLIPIDEMIA, UNSPECIFIED SNOMED Code(s): 58582748 (2) Hypertension Current Visit: Yes Status: Acute Code(s): I10 - ESSENTIAL (PRIMARY) HYPERTENSION SNOMED Code(s): 47275961 (3) Hypoxemia Current Visit: Yes Status: Acute Code(s): R09.02 - HYPOXEMIA SNOMED Code(s ): 600601009 (4) Pulmonary hypertension Current Visit: Yes Status: Acute Code(s): I27.20 - PULMONARY HYPERTENSION, UNSPECIFIED SNOMED Code(s): 13279805 (5) Osteoporosis Current Visit: Yes Status: Acute Code(s): M81.0 - AGE-RELATED OSTEOPOROSIS W /O CURRENT PATHOLOGICAL FRACTURE SNOMED Code(s): 24235141 (6) Acute exacerbation of chronic obstructive airways disease Current Visit: Yes Status: Acute Code(s): J44.1 - CHRONIC OBSTRUCTIVE PULMONARY DISEASE W (ACUTE) EXACERBATION SNOMED Code(s): 657169298 Plan: Plan dated 09/10/2017 The patient should be treated in the standard fashion with updrafts with albuterol and Atrovent 4 times a day and when necessary. In addition, she should receive Pulmicort 1 mg twice a day and Solu-Medrol 60 mg every 6 hours. Probably no need for an antibiotic but if she does get one, something orally can be present provided her for a few days. No additional recommendations are made. We'll continue to follow. Overall prognosis is guarded. She should see me in the office on follow-up. Plan dated 09/11/2017 The patient seemed be doing relatively well. Could probably be transferred down to the general medical floor. I think Dr. Rascon's plan is to keep her in the hospital for another 24-48 hours. The patient is responding to therapy. Her medications seem appropriate. She should be on updrafts Pulmicort and Solu- Medrol. She is on an antibiotic, he could likely be something orally just for a few days. We'll continue to follow. She should see me back in the office on follow-up. We have counseled her about the importance of total smoking cessation. Time with Patient: Less than 30
[2017-09-11 12:15] LABS: Glucose,Whole Blood 132 mg/dL (75-99)
[2017-09-11] MEDS: MULTIVITAMINS, THERA 1 EACH TAB PO SCH (13:02)
[2017-09-11 17:09] LABS: Glucose,Whole Blood 125 mg/dL (75-99)
[2017-09-11] MEDS: ATORVASTATIN 10 MG TAB PO SCH (21:20)
[2017-09-11 22:03] LABS: Glucose,Whole Blood 200 mg/dL (75-99)
[2017-09-12] MEDS: methylPREDNISolone SOD SUCCI 40 MG/ML 1 ML VIAL IV SCH (06:14)
[2017-09-12] MEDS ORDERED: IBUPROFEN 600 MG TAB PO PRN (06:20)
[2017-09-12 07:34] LABS: Glucose,Whole Blood 146 mg/dL (75-99)
[2017-09-12 07:53] VITALS: BP 152/87; RESP 18; TEMP 97.8
[2017-09-12] MEDS: LOSARTAN 50 MG TAB PO SCH (07:56)
[2017-09-12] MEDS: GABAPENTIN 300 MG CAP PO SCH (07:56)
[2017-09-12] MEDS: HEPARIN SODIUM,PORCINE 5,000 UNIT/ML 1 ML VIAL SQ SCH (07:56)
[2017-09-12] MEDS: METOPROLOL TARTRATE 25 MG TAB PO SCH (07:56)
[2017-09-12] MEDS: AZITHROMYCIN 500 MG TAB PO SCH (07:57)
[2017-09-12] MEDS: CHOLECALCIFEROL 1,000 UNIT TAB PO SCH (07:57)
[2017-09-12] MEDS: amLODIPine 5 MG TAB PO SCH (07:57)
[2017-09-12] MEDS: INSULIN ASPART 100 UNIT/ML 1 ML 10 ML VIAL SQ SCH (08:02)
[2017-09-12 08:08] LABS: CH 29.8; CHCM 31.7; HCT 40.8 % (34.0-46.0); HDW 2.18; HGB 13.1 gm/dL (11.4-16.0); MCH 30.2 pg (25.0-35.0); MCHC 32.1 g/dL (31.0-37.0); MCV 94.3 fL (80.0-100.0); RBC 4.33 m/uL (3.80-5.40); RDW 13.8 % (11.5-15.5); WBC 18.3 k/uL (3.8-10.6)
[2017-09-12 08:29] LABS: Anion Gap 8 mmol/L; Blood Urea Nitrogen 33 mg/dL (7-17); Carbon Dioxide 30 mmol/L (22-30); Chloride 103 mmol/L (98-107); Glucose 149 mg/dL (74-99); Non-African American GFR(MDRD) >60 (>60 ml/min/1.73 sqM); Potassium 4.1 mmol/L (3.5-5.1); Sodium 141 mmol/L (137-145)
[2017-09-12] MEDS: IPRATROPIUM-ALBUTEROL 3 ML NEB INHALATION SCH (08:42)
[2017-09-12] MEDS: SYMBICORT 160-4.5 MCG INHALER INHALATION SCH (08:49)
[2017-09-12] MEDS ORDERED: predniSONE 20 MG TAB PO SCH (09:00)
[2017-09-12 11:19] VITALS: PULSE 103
--- NOTE | 2017-09-12 12:17 | P.PN ---
Subjective Progress Note Date: 09/12/17 Principal diagnosis: Dyspnea, COPD, hypoxemia 81-year-old female with history of underlying severe oxygen-dependent COPD. She apparently presented to the emergency department with worsening shortness of breath. In addition, she had a bit of a cough. Not producing much phlegm. A bit of nasal congestion. No chest pain. No fever chills. No nausea vomiting or diarrhea. The patient does take a daily dose of prednisone I believe 2-1/2 or 5 mg a day. Her COPD is quite severe and she is very limited has profound dyspnea on exertion. In addition to COPD, she has a history of hypertension hyperlipidemia osteoporosis vitamin D deficiency. Unfortunately, she does continue to smoke. She does use oxygen on a daily basis. Occasional she'll turn at 1 L when she feeling more short of breath. As I mentioned earlier, she is also prednisone dependent. I see her in the office for her COPD. On 09/12/2017 patient seen in follow-up and medical surgical floor. She is doing much better, states she feels like she can go home today. No worsening dyspnea, she is on 2 L per nasal cannula and O2 sat is 92%. Lung sounds are clear, no wheezing, no rhonchi no rales. Pulmonary standpoint patient is stable to be discharged, follow-up with Dr. Vick in 10 days. Objective - Vital Signs Vital signs: Vital Signs Temp 97.8 F 09/12/17 07:00 Pulse 92 09/12/17 08:54 Resp 18 09/12/17 08:00 BP 152/87 09/12/17 07:00 Pulse Ox 92 L 09/12/17 07:00 Intake & Output 09/11/17 09/12/17 09/12/17 18:59 06:59 18:59 Weight 53.5 kg Other: Voiding Method Toilet Toilet # Voids 3 1 # Bowel Movements 1 1 - Exam GENERAL EXAM: Alert, active, comfortable in no apparent distress. HEAD: Normocephalic/atraumatic. EYES: Normal reaction of pupils, equal size. Conjunctiva pink, sclera white. NOSE: Clear with pink turbinates. THROAT: No erythema or exudates. NECK: No masses, no JVD, no thyroid enlargement, no adenopathy. CHEST: No chest wall deformity. Symmetrical expansion. LUNGS: Equal air entry with no crackles, wheeze, rhonchi or dullness. CVS: Regular rate and rhythm, normal S1 and S2, no gallops, no murmurs, no rubs ABDOMEN: Soft, nontender. No hepatosplenomegaly, normal bowel sounds, no guarding or rigidity. EXTREMITIES: No clubbing, no edema, no cyanosis, 2+ pulses and upper and lower extremities. MUSCULOSKELETAL: Muscle strength and tone normal. SPINE: No scoliosis or deformity SKIN: No rashes CENTRAL NERVOUS SYSTEM: Alert and oriented -3. No focal deficits, tone is normal in all 4 extremities. PSYCHIATRIC: Alert and oriented -3. Appropriate affect. Intact judgment and insight. - Labs CBC & Chem 7: 09/12/17 07:28 09/12/17 07:28 Labs: Abnormal Lab Results - Last 24 Hours (Table) 09/10/17 09/11/17 09/11/17 Range/Units 05:32 11:54 17:03 WBC (3.8-10.6) k/uL BUN (7-17) mg/dL Glucose (74-99) mg/dL POC Glucose (mg/dL) 132 H 125 H (75-99) mg/dL Hemoglobin A1c 6.3 H (4.0-6.0) % 09/11/17 09/12/17 09/12/17 Range/Units 21:02 07:09 07:28 WBC 18.3 H (3.8-10.6) k/uL BUN (7-17) mg/dL Glucose (74-99) mg/dL POC Glucose (mg/dL) 200 H 146 H (75-99) mg/dL Hemoglobin A1c (4.0-6.0) % 09/12/17 Range/Units 07:28 WBC (3.8-10.6) k/uL BUN 33 H (7-17) mg/dL Glucose 149 H (74-99) mg/dL POC Glucose (mg/dL) (75-99) mg/dL Hemoglobin A1c (4.0-6.0) % Assessment and Plan Plan: Assessment: #1. Acute exacerbation of chronic obstructive airways disease #2. Acute on chronic hypoxic and hypercapnic respiratory failure due to the above #3. Hypertension #4. Osteoporosis #5. Hyperlipidemia. Plan: Patient has made significant improvement in her pulmonary status. She feels she is back at her baseline. Patient is stable for discharge home from pulmonary standpoint on prednisone taper and DuoNeb nebulized treatments. Follow-up with Dr. Vick in the office in 10 days. I performed a history & physical examination of the patient and discussed their management with my nurse practitioner, Jenny Dodson. I reviewed the nurse practitioner's note and agree with the documented findings and plan of care. Lung sounds are clear, no rhonchi, no rales no wheezes. The findings and the impression was discussed with the patient. I attest to the documentation by the nurse practitioner. Time with Patient: Less than 30
--- NOTE | 2017-09-24 12:30 | P.DS ---
Providers Date of admission: 09/09/17 18:07 Attending physician: Jose Rascon Consults: 09/10/17 10:19 Consult Physician Routine Consulting Provider: Jesús Vick Reason/Comments: copd Do you want consulting provider notified?: Yes Primary care physician: Jose Rascon Hospital Course: Hospital course: This 81-year-old female process to the emergency room because of shortness of breath predominantly dyspnea with minimal activity. The patient has a history of advanced COPD. She has history of chronic respiratory failure on oxygen at home. The patient does have updrafts however she does not use them. He tends to use more her MDIs. Patient has been advised not educated regarding importance of using her updrafts rather than the MDIs. She is steroid dependent. Does no clear evidence of any infection. Patient was empirically placed on antibiotic orally by the warehouse administrator. She was given steroids IV initially and switched over to oral at the time of discharge. Patient's condition discussed with the patient and family prognosis remains guarded to poor in view of her advanced COPD. She does follow with the warehouse administrator, Dr. Vick. Patient to quit smoking which she still is dependent on. Counseled regarding benefits of quitting smoking. Final diagnosis to include 1. Acute exacerbation COPD 2. Acute on chronic respiratory failure 3. Hypertension medical therapy 4. Hyperlipidemia on medical therapy 5. Mild compensated sinus tachycardia due to chronic hypoxia and respiratory failure and probably underlying pulmonary hypertension Patient Condition at Discharge: Stable Plan - Discharge Summary Discharge Rx Participant: No New Discharge Prescriptions: New Ibuprofen [Motrin] 600 mg PO TID PRN tab PRN Reason: Pain Ipratropium-Albuterol Nebulize [Duoneb 0.5 mg-3 mg/3 ml Soln] 3 ml INHALATION RT-QID ampul.neb predniSONE 10 mg PO DIRECTED #60 tab Continue Simvastatin [Zocor] 20 mg PO HS Cholecalciferol [Vitamin D3] 2,000 unit PO DAILY Multivitamins, Thera [Multivitamin (formulary)] 1 tab PO DAILY Metoprolol Tartrate [Lopressor] 25 mg PO TID Losartan Potassium [Cozaar] 100 mg PO DAILY Gabapentin [Neurontin] 300 mg PO TID amLODIPine [Norvasc] 5 mg PO DAILY Ipratropium/Albuterol Sulfate [Combivent Respimat Inhaler] 2 puff INHALATION RT-TID Fluticasone/Vilanterol [Breo Ellipta 200-25 Mcg INH] 1 puff INHALATION RT- DAILY Alendronate Sodium [Fosamax] 70 mg PO WE Discontinued Albuterol Inhaler [Ventolin Hfa Inhaler] 2 puff INHALATION RT-QID PRN PRN Reason: Shortness Of Breath predniSONE 2.5 mg PO DAILY Discharge Medication List Alendronate Sodium [Fosamax] 70 mg PO WE 09/09/17 [History] Cholecalciferol [Vitamin D3] 2,000 unit PO DAILY 09/09/17 [History] Fluticasone/Vilanterol [Breo Ellipta 200-25 Mcg INH] 1 puff INHALATION RT-DAILY 09/09/17 [History] Gabapentin [Neurontin] 300 mg PO TID 09/09/17 [History] Ipratropium/Albuterol Sulfate [Combivent Respimat Inhaler] 2 puff INHALATION RT- TID 09/09/17 [History] Losartan Potassium [Cozaar] 100 mg PO DAILY 09/09/17 [History] Metoprolol Tartrate [Lopressor] 25 mg PO TID 09/09/17 [History] Multivitamins, Thera [Multivitamin (formulary)] 1 tab PO DAILY 09/09/17 [History ] Simvastatin [Zocor] 20 mg PO HS 09/09/17 [History] amLODIPine [Norvasc] 5 mg PO DAILY 09/09/17 [History] Ibuprofen [Motrin] 600 mg PO TID PRN tab 09/12/17 [Rx] Ipratropium-Albuterol Nebulize [Duoneb 0.5 mg-3 mg/3 ml Soln] 3 ml INHALATION RT -QID ampul.neb 09/12/17 [Rx] predniSONE 10 mg PO DIRECTED #60 tab 09/12/17 [Rx] Follow up Appointment(s)/Referral(s): Jose Rascon MD [Primary Care Provider] - 1-2 days (Office closed) Jesús Vick DO [Doctor of Osteopathic Medicine] - 10 Days Patient Instructions/Handouts: COPD (Chronic Obstructive Pulmonary Disease) (DC ) Discharge Disposition: HOME SELF-CARE
== END 2017-09-12 11:21 | disposition home or self-care (01) | DRG 190 ==
LOC: EC 14:43 → 6SEL 18:07 → 4MS4W 09-11 13:12
PROVIDERS: ADMIT Internal Medicine; ATTEND Internal Medicine
DX: J44.1 Chronic obstructive pulmonary disease with (acute) exacerbation (principal); J96.22 Acute and chronic respiratory failure with hypercapnia; J96.21 Acute and chronic respiratory failure with hypoxia; I27.20 Pulmonary hypertension, unspecified; M81.0 Age-related osteoporosis without current pathological fracture; M19.90 Unspecified osteoarthritis, unspecified site; E78.5 Hyperlipidemia, unspecified; I10 Essential (primary) hypertension; Z79.899 Other long term (current) drug therapy; Z99.81 Dependence on supplemental oxygen; Z79.83 Long term (current) use of bisphosphonates; Z79.52 Long term (current) use of systemic steroids; Z87.891 Personal history of nicotine dependence
CPT/HCPCS: 36415; 71020; 80048; 80053; 82550; 82553; 83036; 83735; 83880; 84484; 85025; 85027; 85610; 85730; 93005; 94640; 96365; 96375; 99285

== ENCOUNTER → 2018-09-27 | Outpatient (CLI) | payer MEDICARE, BC ==
--- NOTE | 2018-09-27 14:38 | US ---
EXAMINATION TYPE: US venous doppler duplex LE LT DATE OF EXAM: 09/27/2018 2:22 PM COMPARISON: NONE CLINICAL HISTORY: M79.605 pain in left leg. Left leg swelling and redness. No hx of blood clots or b lood thinners. SIDE PERFORMED: Left TECHNIQUE: The lower extremity deep venous system is examined utilizing real time linear array sonog sam with graded compression, doppler sonography and color-flow sonography. VESSELS IMAGED: External Iliac Vein (EIV) Common Femoral Vein Deep Femoral Vein Greater Saphenous Vein * Femoral Vein Popliteal Vein Small Saphenous Vein * Proximal Calf Veins (* superficial vessels) Left Leg: Negative for DVT IMPRESSION: No evidence for DVT at this time.
== END | disposition home or self-care (01) ==
LOC: RADUSWWP 13:45
PROVIDERS: ATTEND Internal Medicine Critical Care Medicine
DX: M79.605 Pain in left leg (principal)

== ENCOUNTER → 2018-10-19 | Outpatient (CLI) | payer MEDICARE, BC ==
--- NOTE | 2018-10-20 16:59 | BD ---
EXAMINATION TYPE: Axial Bone Density DATE OF EXAM: 10/19/2018 COMPARISON: 07.11.2017 CLINICAL HISTORY: 82 YR OLD FEMALE....ICD-10 CODE: Z79.52 CHRONIC STEROID USE, M81.0 OSTEOPOROSIS Height: 56.4 Weight: 129 FRAX RISK QUESTIONS: Glucocorticoids (More than 3mos): YES (Ex: prednisone, prednisolone, methylprednisolone, dexamethasone, and hydrocortisone). RISK FACTORS HISTORY OF: Family History of Osteoporosis: YES, HER MOTHER Postmenopausal woman: AT 45 YRS OLD Lost more than 2 inches in height since high school: YES Frequent falls: UNSTEADY....IN W/C WITH O2 Poor Health: YES MEDICATIONS: Prednisone or other steroids: YES, CHRONICALLY, FOR LUNGS, COPD, INHALERS FOR LUNGS, NEBULIZER How Long: MANY YRS Osteoporosis Medications: FOSAMAX, FOR ABOUT 5 T0 10 YRS Additional Medications: BP MEDS, STATIN, REFLUX MEDS, COPD MEDS, EOS, SINGULAIR, VIT D Additional History: COPD, OSTEOPOROSIS, CHOLESTEROL, HYPERTENSION, PT ON O2 EXAM MEASUREMENTS: Bone mineral densitometry was performed using the Flock System. Bone mineral density as measured about the Lumbar spine is: ----- L1-L4(G/cm2): 1.310 T Score Values are as follows: ----- L1: 2.3 ----- L2: 0.2 ----- L3: 1.5 ----- L4: 0.3 ----- L1-L4: 1.1 Bone mineral density has: Increased 27.2% SINCE 07.11.2017 STUDY Bone mineral density about the R hip (g/cm2): 0.795 Bone mineral density about the L hip (g/cm2): 0.834 T Score values are as follows: -----R Neck: -2.5 -----L Neck: -2.1 -----R Total: -1.7 -----L Total: -1.4 Bone mineral density has: Increased 3.3% SINCE 07.11.2017 STUDY FRAX%s: THERE IS A 28.3% CHANCE FOR A MAJOR OSTEOPOROTIC FX AND A 11.3% FOR HIP...PROBABILITY OF F X IN 10 YRS TIME IMPRESSION: Osteopenia (T Score between -2.5 and -1). There is slightly increased risk of fracture and the patient may be considered for treatment. Re-Screen 2-5 years. NOTE: T-SCORE=SD OF THE YOUNG ADULT MEAN.
== END | disposition home or self-care (01) ==
LOC: RADBDWWP 14:37
PROVIDERS: ATTEND Internal Medicine
DX: M85.851 Other specified disorders of bone density and structure, right thigh (principal); M85.852 Other specified disorders of bone density and structure, left thigh; Z79.52 Long term (current) use of systemic steroids
CPT/HCPCS: 77080

== ENCOUNTER → 2019-08-22 | Outpatient (CLI) | payer MEDICARE, BC ==
--- NOTE | 2019-08-23 04:13 | XR ---
EXAMINATION TYPE: XR chest 2V DATE OF EXAM: 08/22/2019 COMPARISON: 09/09/2017 and 11/20/2018 HISTORY: 83-year-old female with chest pain TECHNIQUE: Frontal and lateral views FINDINGS: The heart is mildly enlarged. The mild patchy mid and lower lung densities on the right are unchanged from 2017. Mild hyperinflation. Other scattered calcifications throughout the aorta. IMPRESSION: 1. Stable borderline to mild cardiomegaly. Hyperinflation suggests underlying COPD. 2. Scattered parenchymal opacities especially in the mid to lower right lung appear largely stable. G iven patient's increased risk for development of lung cancer, recommend contrast-enhanced CT to exclu de underlying pulmonary nodules. 3. Otherwise, no acute change seen.
== END | disposition home or self-care (01) ==
LOC: RADXRMAIN 16:32
PROVIDERS: ATTEND Internal Medicine
DX: J44.9 Chronic obstructive pulmonary disease, unspecified (principal); R91.8 Other nonspecific abnormal finding of lung field; I51.7 Cardiomegaly
CPT/HCPCS: 71046

== ENCOUNTER → 2019-08-23 | Outpatient (CLI) | payer MEDICARE, BC ==
--- NOTE | 2019-08-23 14:29 | XR ---
EXAMINATION TYPE: XR ribs LT DATE OF EXAM: 08/23/2019 COMPARISON: 08/22/2019 HISTORY: 83-year-old female left-sided contusion and rib pain TECHNIQUE: 4 views FINDINGS: No pneumothorax or pleural effusion. No displaced left rib fracture. IMPRESSION: Nondisplaced left rib fracture seen.
== END | disposition home or self-care (01) ==
LOC: RADXRMAIN 13:41
PROVIDERS: ATTEND Internal Medicine
DX: S22.32XA Fracture of one rib, left side, initial encounter for closed fracture (principal); J44.9 Chronic obstructive pulmonary disease, unspecified

== ENCOUNTER → 2019-08-23 | Outpatient (CLI) | payer MEDICARE, BC ==
[2019-08-23 19:03] LABS: African American GFR (CKD) 60.8 (60.0-200.0); Anion Gap 10.5 mmol/L (4.00-12.00); Calcium 10.2 mg/dL (8.7-10.3); Carbon Dioxide 32.5 mmol/L (21.6-31.8); Magnesium 1.8 mg/dL (1.5-2.4); Non-African American GFR(CKD) 52.4 (60.0-200.0); Potassium 4.8 mmol/L (3.5-5.5)
== END | disposition home or self-care (01) ==
LOC: LABWHC1 13:59
PROVIDERS: ATTEND Nurse Practitioner
DX: I10 Essential (primary) hypertension (principal)
CPT/HCPCS: 36415; 80048; 83735

== ENCOUNTER 2019-09-25 18:05 | Emergency (ER) | payer MEDICARE, BC ==
[2019-09-25 18:15] VITALS: BP 119/68; RESP 16; TEMP 98.1
[2019-09-25] MEDS ORDERED: LIDOCAINE 1% INJ 10MG/ML (20 ML MDV) SQ STA (18:24)
[2019-09-25] MEDS ORDERED: WATER FOR IRRIG, STERILE 1,000 ML BTL IRRIGATION ONE (18:24)
--- NOTE | 2019-09-25 18:29 | ED ---
General Adult HPI - General Source: patient, RN notes reviewed, old records reviewed Mode of arrival: wheelchair Limitations: no limitations <Jorge L Monroy - Last Filed: 09/25/19 19:13> <Jesús Coelho - Last Filed: 09/25/19 19:39> - General Chief complaint: Wound/Laceration Stated complaint: fall, head lac Time Seen by Provider: 09/25/19 18:15 - History of Present Illness Initial comments: 83-year-old female patient with past history significant for COPD presents ED chief complaint of fall with facial laceration. Patient reports that she has difficulty walking at baseline, she stepped from her wheelchair, she slipped fell for hitting her face on the ceramic tile. Patient has a laceration above her left eye. Denies any loss of consciousness. Denies any pain any other places. Denies any use of blood thinners. Reports that tetanus is up-to-date. Systemic: Pt denies fatigue, fever/chills, rash. Pt denies weakness, night sweats, weight loss. Neuro: Pt denies headache, visual disturbances, syncope or pre-syncope. HEENT: Pt denies ocular discharge or irritation, otalgia, rhinorrhea, pharyngitis or notable lymphadenopathy. Cardiopulmonary: Pt denies chest pain, SOB, heart palpitations, dyspnea on exertion. Abdominal/GI: Pt denies abdominal pain, n/v/d. : Pt denies dysuria, burning w/ urination, frequency/urgency. Denies new onset urinary or bowel incontinence. MSK: Pt denies myalgia, loss of strength or function in extremities. Neuro: Pt denies new onset weakness, paresthesias. (Jorge L Monroy) - Related Data Home Medications Medication Instructions Recorded Confirmed Alendronate Sodium [Fosamax] 70 mg PO WE 09/09/17 09/09/17 Cholecalciferol [Vitamin D3 (25 2,000 unit PO DAILY 09/09/17 09/09/17 Mcg = 1000 Iu)] Fluticasone/Vilanterol [Breo 1 puff INHALATION RT-DAILY 09/09/17 09/09/17 Ellipta 200-25 Mcg INH] Gabapentin [Neurontin] 300 mg PO TID 09/09/17 09/09/17 Ipratropium/Albuterol Sulfate 2 puff INHALATION RT-TID 09/09/17 09/09/17 [Combivent Respimat Inhaler] Losartan Potassium [Cozaar] 100 mg PO DAILY 09/09/17 09/09/17 Metoprolol Tartrate [Lopressor] 25 mg PO TID 09/09/17 09/09/17 Multivitamins, Thera [Multivitamin 1 tab PO DAILY 09/09/17 09/09/17 (formulary)] Simvastatin [Zocor] 20 mg PO HS 09/09/17 09/09/17 amLODIPine [Norvasc] 5 mg PO DAILY 09/09/17 09/09/17 Previous Rx's Medication Instructions Recorded Ibuprofen [Motrin] 600 mg PO TID PRN tab 09/12/17 Ipratropium-Albuterol Nebulize 3 ml INHALATION RT-QID ampul.neb 09/12/17 [Duoneb 0.5 mg-3 mg/3 ml Soln] predniSONE 10 mg PO DIRECTED #60 tab 09/12/17 Allergies Allergy/AdvReac Type Severity Reaction Status Date / Time No Known Allergies Allergy Verified 09/25/19 18:15 Review of Systems ROS Other: All systems not noted in ROS Statement are negative. <Jorge L Monroy - Last Filed: 09/25/19 19:13> ROS Other: All systems not noted in ROS Statement are negative. <Jesús Coelho - Last Filed: 09/25/19 19:39> ROS Statement: Those systems with pertinent positive or pertinent negative responses have been documented in the HPI. Past Medical History Past Medical History: COPD, Hyperlipidemia, Hypertension, Osteoarthritis (OA) History of Any Multi-Drug Resistant Organisms: None Reported Additional Past Surgical History / Comment(s): colonoscopy Past Anesthesia/Blood Transfusion Reactions: No Reported Reaction Past Psychological History: No Psychological Hx Reported Smoking Status: Former smoker Past Alcohol Use History: Daily Past Drug Use History: None Reported <Jorge L Monroy - Last Filed: 09/25/19 19:13> General Exam Limitations: no limitations <Jorge L Monroy - Last Filed: 09/25/19 19:13> - General Exam Comments Initial Comments: Constitutional: NAD, AOX3, Pt has pleasant affect. HEENT: NC/AT, trachea midline, neck supple, no lymphadenopathy. Posterior pharynx non erythematous, without exudates. External ears appear normal, without discharge. Mucous membranes moist. Eyes PERRLA, EOM intact. There is no scleral icterus. No pallor noted. Cardiopulmonary: RRR, no murmurs, rubs or gallops, no JVD noted. Lungs CTAB in anterior and posterior silverman. No peripheral edema. Abdominal exam: Abdomen soft and non-distended. Abdomen non-tender to palpation in all 4 quadrants. Bowel sounds active in LLQ. No hepatosplenomegaly. No ecchymosis Neuro: CN II-XII intact. No nuchal rigidity. No raccon eyes, no deng sign, no hemotympanum. No cervical spinal tenderness. MSK: 2 cm laceration above left eyebrow approximated with 2 simple interrupted sutures. Vigorously irrigated. No posterior calf tenderness bilaterally, homans sign negative bilaterally. Posterior tibialis and radial pulse +2 bilaterally. Sensation intact in upper and lower extremities. Full active ROM in upper and lower extremities, 5/5 stregnth. (Jorge L Monroy) Course <Jesús Coelho - Last Filed: 09/25/19 19:39> Vital Signs 09/25/19 09/25/19 18:12 19:31 Temperature 98.1 F Pulse Rate 100 96 Respiratory 16 Rate Blood Pressure 119/68 O2 Sat by Pulse 96 100 Oximetry - Reevaluation(s) Reevaluation #1: 09/25/19 19:39 PA supervision: I personally evaluate this case patient had fallen sustaining a scalp/forehead laceration. CAT scan was reviewed no evidence of acute intercranial findings no skull fractures. Patient did have the laceration repaired. I do agree with the assessment and plan. (Jesús Coelho) Procedures - Laceration Laceration #1 Consent Obtained: verbal consent Indication: laceration Site: face Size (cm): 2 Description: linear Depth: simple, single layer Anesthetic Used: lidocaine 1% Anesthesia Technique: local infiltration Amount (mls): 2 Pre-repair: wound explored, irrigated extensively, deep structures intact Type of Sutures: nylon Size of Sutures: 6-0 Number of Sutures: 2 Technique: simple, interrupted Patient Tolerated Procedure: well, no complications <Jorge L Monroy - Last Filed: 09/25/19 19:13> Medical Decision Making <Jorge L Monroy - Last Filed: 09/25/19 19:13> - Medical Decision Making 83-year-old female patient presents ED chief complaint of fall from standing, laceration above left eye. Patient will signs stable, afebrile. Denies any use of blood thinners. Physical exam weight 2 cm above left eye. Neurologic exam within normal limits. Tetanus up-to-date. CT brain and C-spine did not display acute intracranial process, frontal soft tissue swelling noted.. Laceration approximately 2 simple interrupted sutures. Patient discharged with return precautions. Case discussed with Dr. Coelho. (Jorge L Monroy) Disposition Is patient prescribed a controlled substance at d/c from ED?: No <Jorge L Monroy - Last Filed: 09/25/19 19:13> <Jesús Coelho - Last Filed: 09/25/19 19:39> Clinical Impression: Laceration, Fall Disposition: HOME SELF-CARE Condition: Stable Instructions (If sedation given, give patient instructions): Laceration (ED), Fall Prevention for Older Adults (ED) Additional Instructions: Return to ER if condition worsens in any way. Follow-up with primary care provider in 1-2 days. Please return for suture removal: Hand: 7-10 days Face: 5 days Chest/abdomen: 12-14 days Extremities: 7-10 days Scalp: 7 days Eyebrow: 5-7 days Foot/sole: 12-14 days Please monitor for signs and symptoms of infection including: redness, warmth, drainage, discharge. Please return to ED if these signs or symptoms occur, new signs or symptoms develop or if condition worsens in anyway. Referrals: Jose Rascon MD [Primary Care Provider] - 1-2 days
--- NOTE | 2019-09-25 18:51 | CT ---
EXAMINATION TYPE: CT brain hosea wo con DATE OF EXAM: 09/25/2019 COMPARISON: None HISTORY: Fall with laceration. Neck pain. CT DLP: mGycm Automated exposure control for dose reduction was used. Ventricles have normal size. There is no mass effect nor midline shift. There is no sign of intracran ial hemorrhage. There is cerebral cortical atrophy. Calvarium is intact. 1. Cervical vertebra have fairly normal alignment. There is some mild degenerative subluxation at C3 -4 of a few millimeters. There is narrowing of the C5-6 disc space with spurring of the endplates. Th ere is hypertrophic multilevel facet arthropathy. Skull base is intact. IMPRESSION: Negative CT scan of the brain. Left frontal scalp soft tissue swelling noted. Spondylotic changes in the cervical spine. No fracture.
[2019-09-25 19:32] VITALS: PULSE 96
== END 2019-09-25 19:24 | disposition home or self-care (01) ==
LOC: EC 18:05
DX: S01.81XA Laceration without foreign body of other part of head, initial encounter (principal); J44.9 Chronic obstructive pulmonary disease, unspecified; E78.5 Hyperlipidemia, unspecified; I10 Essential (primary) hypertension; M19.90 Unspecified osteoarthritis, unspecified site; Z87.891 Personal history of nicotine dependence; Z79.51 Long term (current) use of inhaled steroids; Z79.899 Other long term (current) drug therapy; W05.0XXA Fall from non-moving wheelchair, initial encounter; Y93.89 Activity, other specified
CPT/HCPCS: 12011; 70450; 72125; 99284

== ENCOUNTER 2020-12-26 10:00 | Inpatient (IN) | payer MEDICARE, BC ==
[2020-12-26] MEDS ORDERED: SODIUM CHLORIDE 0.9% 500 ML 500 ML IV ONE ×2 (10:19→11:32)
[2020-12-26 11:02] LABS: Albumin 3.8 g/dL (3.5-5.0); Magnesium 1.5 mg/dL (1.6-2.3); Potassium 5.5 mmol/L (3.5-5.1); Total Bilirubin 0.5 mg/dL (0.2-1.3); Total Protein 6.1 g/dL (6.3-8.2)
[2020-12-26 11:04] LABS: Basophils % (A) 0 %; Eosinophils # (A) 0.2 k/uL (0-0.7); Eosinophils % (A) 2 %; HCT 34.1 % (34.0-46.0); HGB 11.5 gm/dL (11.4-16.0); Lymphocytes # (A) 0.9 k/uL (1.0-4.8); Lymphocytes % (A) 8 %; MCH 31.7 pg (25.0-35.0); MCHC 33.7 g/dL (31.0-37.0); MCV 93.8 fL (80.0-100.0); Mean Platelet Volume 9.6; Monocytes # (A) 0.7 k/uL (0-1.0); Monocytes % (A) 6 %; Neutrophils # (A) 9.7 k/uL (1.3-7.7); Neutrophils % (A) 84 %; Platelet Count 180 k/uL (150-450); RBC 3.63 m/uL (3.80-5.40); WBC 11.6 k/uL (3.8-10.6)
--- NOTE | 2020-12-26 11:05 | ED ---
General Adult HPI - General Chief complaint: Recheck/Abnormal Lab/Rx Stated complaint: abnormal labs Time Seen by Provider: 12/26/20 10:07 Source: patient, RN notes reviewed Mode of arrival: wheelchair Limitations: no limitations - History of Present Illness Initial comments: 85-year-old female presents emergency Department with chief complaint abnormal labs. Patient states she is contacted and states that her kidney function has decreased and her potassium was elevated. Patient has no point this time there was reports that she's had some dizzy spells but denies chest pain shortness of breath headache blurred vision focal weakness she normally is on oxygen. Denies any leg swelling usual. No abdominal pain. Patient denies any potassium supple ments. - Related Data Home Medications Medication Instructions Recorded Confirmed Alendronate Sodium [Fosamax] 70 mg PO WE 09/09/17 09/09/17 Cholecalciferol [Vitamin D3 (25 2,000 unit PO DAILY 09/09/17 09/09/17 Mcg = 1000 Iu)] Fluticasone/Vilanterol [Breo 1 puff INHALATION RT-DAILY 09/09/17 09/09/17 Ellipta 200-25 Mcg INH] Gabapentin [Neurontin] 300 mg PO TID 09/09/17 09/09/17 Ipratropium/Albuterol Sulfate 2 puff INHALATION RT-TID 09/09/17 09/09/17 [Combivent Respimat Inhaler] Losartan Potassium [Cozaar] 100 mg PO DAILY 09/09/17 09/09/17 Metoprolol Tartrate [Lopressor] 25 mg PO TID 09/09/17 09/09/17 Multivitamins, Thera [Multivitamin 1 tab PO DAILY 09/09/17 09/09/17 (formulary)] Simvastatin [Zocor] 20 mg PO HS 09/09/17 09/09/17 amLODIPine [Norvasc] 5 mg PO DAILY 09/09/17 09/09/17 Previous Rx's Medication Instructions Recorded Ibuprofen [Motrin] 600 mg PO TID PRN tab 09/12/17 Ipratropium-Albuterol Nebulize 3 ml INHALATION RT-QID ampul.neb 09/12/17 [Duoneb 0.5 mg-3 mg/3 ml Soln] predniSONE [Deltasone] 10 mg PO DIRECTED #60 tab 09/12/17 Allergies Allergy/AdvReac Type Severity Reaction Status Date / Time No Known Allergies Allergy Verified 09/25/19 18:15 Review of Systems ROS Statement: Those systems with pertinent positive or pertinent negative responses have been documented in the HPI. ROS Other: All systems not noted in ROS Statement are negative. Past Medical History Past Medical History: COPD, Hyperlipidemia, Hypertension, Osteoarthritis (OA) History of Any Multi-Drug Resistant Organisms: None Reported Additional Past Surgical History / Comment(s): colonoscopy Past Anesthesia/Blood Transfusion Reactions: No Reported Reaction Past Psychological History: No Psychological Hx Reported Smoking Status: Former smoker Past Alcohol Use History: Daily Past Drug Use History: None Reported General Exam Limitations: no limitations General appearance: alert, in no apparent distress Head exam: Present: atraumatic, normocephalic, normal inspection Eye exam: Present: normal appearance, PERRL, EOMI. Absent: scleral icterus, co njunctival injection, periorbital swelling ENT exam: Present: normal exam, normal oropharynx, mucous membranes moist Neck exam: Present: normal inspection, full ROM. Absent: tenderness, meningismus, lymphadenopathy Respiratory exam: Present: normal lung sounds bilaterally. Absent: respiratory distress, wheezes, rales, rhonchi, stridor Cardiovascular Exam: Present: regular rate, normal rhythm, normal heart sounds. Absent: systolic murmur, diastolic murmur, rubs, gallop, clicks GI/Abdominal exam: Present: soft, normal bowel sounds. Absent: distended, tenderness, guarding, rebound, rigid Back exam: Absent: CVA tenderness (R), CVA tenderness (L) Neurological exam: Present: alert, oriented X3 Skin exam: Present: warm, dry, intact, normal color. Absent: rash Course Vital Signs 12/26/20 12/26/20 10:01 11:29 Temperature 97.9 F Pulse Rate 87 86 Respiratory 16 18 Rate Blood Pressure 124/64 O2 Sat by Pulse 98 99 Oximetry EKG Findings - EKG Comments: EKG Findings:: EKG performed at 10:31 normal sinus rhythm rate of 80 RI 144 QRS 78 QT/QTC 376/433 Medical Decision Making - Medical Decision Making 85-year-old presented for abnormal labs. Patient is her prior hyperkalemia was 6.3 currently 5.5. Patient found have acute renal failure with no clear cause at this time. Patient will be admitted for nephrology evaluation, mild fluid hydration, monitoring of potassium. - Lab Data Result diagrams: 12/26/20 10:41 12/26/20 10:41 Lab Results 12/26/20 12/26/20 Range/Units 10:41 10:41 WBC 11.6 H (3.8-10.6) k/uL RBC 3.63 L (3.80-5.40) m/uL Hgb 11.5 (11.4-16.0) gm/dL Hct 34.1 (34.0-46.0) % MCV 93.8 (80.0-100.0) fL MCH 31.7 (25.0-35.0) pg MCHC 33.7 (31.0-37.0) g/dL RDW 13.0 (11.5-15.5) % Plt Count 180 (150-450) k/uL MPV 9.6 Neutrophils % 84 % Lymphocytes % 8 % Monocytes % 6 % Eosinophils % 2 % Basophils % 0 % Neutrophils # 9.7 H (1.3-7.7) k/uL Lymphocytes # 0.9 L (1.0-4.8) k/uL Monocytes # 0.7 (0-1.0) k/uL Eosinophils # 0.2 (0-0.7) k/uL Basophils # 0.0 (0-0.2) k/uL Sodium 139 (137-145) mmol/L Potassium 5.5 H (3.5-5.1) mmol/L Chloride 101 (98-107) mmol/L Carbon Dioxide 28 (22-30) mmol/L Anion Gap 10 mmol/L BUN 69 H (7-17) mg/dL Creatinine 2.53 H (0.52-1.04) mg/dL Est GFR (CKD-EPI)AfAm 19 (>60 ml/min/1.73 sqM) Est GFR (CKD-EPI)NonAf 17 (>60 ml/min/1.73 sqM) Glucose 129 H (74-99) mg/dL Calcium 10.0 (8.4-10.2) mg/dL Magnesium 1.5 L (1.6-2.3) mg/dL Total Bilirubin 0.5 (0.2-1.3) mg/dL AST 29 (14-36) U/L ALT 25 (4-34) U/L Alkaline Phosphatase 56 (38-126) U/L Total Protein 6.1 L (6.3-8.2) g/dL Albumin 3.8 (3.5-5.0) g/dL Disposition Clinical Impression: Acute renal failure, Hyperkalemia Disposition: ADMITTED IP TO THIS HOSP Condition: Fair Referrals: Reggie Wang MD [Primary Care Provider] - 1-2 days
--- NOTE | 2020-12-26 12:13 | US ---
EXAMINATION TYPE: US kidneys/renal and bladder DATE OF EXAM: 12/26/2020 COMPARISON: NONE CLINICAL HISTORY: renal failure. High potassium. Exam limited due to bowel gas and rib shadowing. EXAM MEASUREMENTS: Right Kidney: 7.7 x 3.9 x 3.6 cm Left Kidney: 7.2 x 3.6 x 3.5 cm Right Kidney: Hypoechoic area lower pole 1.8 x 1.5 x 2.0 cm. This appears to be a simple cyst. The ki dney appears atrophic. Left Kidney: Lower pole limited atrophic Bladder: anechoic Bilateral Jets seen: no IMPRESSION: 1. Inferior pole right renal exophytic cyst
[2020-12-26] MEDS ORDERED: NALOXONE 0.4 MG/ML 1 ML VIAL IV PRN (12:40)
[2020-12-26] MEDS ORDERED: ACETAMINOPHEN TAB 325 MG TAB PO PRN (12:40)
[2020-12-26] MEDS ORDERED: MAGNESIUM OXIDE 400 MG TAB PO STA (12:45)
[2020-12-26 13:17] LABS: Appearance,Urine Clear (Clear); Bilirubin,Urine Negative (Negative); Blood,Urine Negative (Negative); Color,Urine Light Yellow; Glucose,Urine (UA) Negative (Negative); Ketones,Urine Negative (Negative); Leukocyte Esterase,Urine Negative (Negative); Nitrite,Urine Negative (Negative); Protein,Urine Trace (Negative); Specific Gravity,Urine 1.013 (1.001-1.035); Urobilinogen,Urine <2.0 mg/dL (<2.0)
[2020-12-26] MEDS: SODIUM CHLORIDE 0.9% 1,000 ML IV SCH (13:17)
[2020-12-26] MEDS ORDERED: IPRATROPIUM-ALBUTEROL 3 ML NEB INHALATION PRN (15:43)
[2020-12-26] MEDS ORDERED: MELATONIN 3 MG TABLET PO PRN (15:45)
[2020-12-26] MEDS: IPRATROPIUM-ALBUTEROL 3 ML NEB INHALATION SCH ×2 (16:17→21:11)
[2020-12-26] MEDS: METOPROLOL TARTRATE 25 MG TAB PO SCH ×2 (16:23→20:31)
--- NOTE | 2020-12-26 16:41 | P.HPIM ---
<Tu Moctezuma - Last Filed: 12/26/20 15:38> History of Present Illness H&P Date: 12/26/20 Chief Complaint: fatigue and abnormal lab findings History of presenting illness: Patient is an 85-year-old female with a past medical history of hypertension, hyperlipidemia, COPD on chronic home oxygen at 2 L, and neuropathy. She presented to the emergency department today with a chief complaint of fatigue and abnormal labs. Patient states that she went to her PCPs office on 12/24/20 secondary to feeling fatigued and had some labs drawn. Patient reports she received a phone call from her doctor's office today telling her she needed to come into the emergency department to be evaluated secondary to having a decreased renal function and elevated potassium. Patient was seen and fully evaluated in the emergency department. Renal ultrasound completed revealing a hypoechoic area to left lower pole of right kidney measuring 1.8 x 1.5 x 2.0 cm which is reported as an inferior pole right renal exophytic cyst. EKG revealing normal sinus rhythm at 80 bpm with no noted T-wave or ST abnormalities, no U waves present. CBC positive for leukocytosis with WBC count of 11.6 otherwise showing no significant abnormalities. BMP revealing hyperkalemia with a pot assium of 5.5 And acute renal failure with BUN 69, creatinine 2.53, and GFR of 17. Baseline creatinine is 1.0 with a baseline GFR of 52.1. Urinalysis negative for blood, ketones, or infection. Patient admitted under our services for acute renal failure and hyperkalemia. Upon bedside examination, patient was found to be alert and pleasantly oriented to person, place, time and situation. Patient reports that she was recently placed on prednisone secondary to her advancing COPD and completed a 7 day course of Bactrim on 12/10. Patient reports shortly after that she was then started on Aldactone and hydrochlorothiazide on 12/20/20. Patient reports that over the past week she has had increased fatigue and weakness and this is why she went to her PCP to be evaluated and have labs drawn with resulted in her critical lab values. Patient currently states she feels a little tired, but otherwise denies having any complaints including fever, chills, lightheadedness, dizziness, changes in her vision or hearing, chest pain or palpitations, increased or changes in shortness of breath, changes in her chronic cough or sputum production, abdominal pain, nausea, vomiting, changes in her appetite, recent weight loss or weight gain, or experiencing any changes in or difficulties with urinary or bowel function. Review of systems: Pertinent positives and negatives as discussed in HPI, a complete review of systems was performed and all other systems are negative. Physical exam: General: non toxic, no distress, appears at stated age Derm: warm, excessive dryness, poor skin turgor Head: atraumatic, normocephalic, symmetric Eyes: EOMI, no lid lag, anicteric sclera Mouth: no lip lesion, mucus membranes dry Cardiovascular: S1S2 normal with regular rate and rhythm, no murmur, gallop, or rub noted. Positive posterior tibial pulses bilaterally. Cap refill less than 2 seconds. Lungs: Respirations even, regular, and unlabored on 2 L O2 via nasal cannula. Lungs diminished bilaterally. No adventitious lung sounds noted including wheezes, rhonchi, or rales. No accessory muscle use. GI/: Abdomen soft, nontender to palpation, no guarding, no appreciable organomegaly. No CVA tenderness. Henson was placed upon arrival to ED with clear straw-colored urine in collection chamber. Ext: no gross muscle atrophy, no edema, no contractures Neuro: GCS 15. Speech clear. CN II-XII grossly intact, no focal neuro deficits Psych: Alert, oriented, pleasant and cooperative with appropriate affect Assessment and Plan of Care: Acute kidney injury, likely secondary to adverse effects of medication -BMP revealing acute renal failure with BUN 69, creatinine 2.53, and GFR of 17. Baseline creatinine is 1.0 with a baseline GFR of 52.1. -Patient recently completed a seven-day course of Bactrim and was started on Aldactone and hydrochlorothiazide on 12/20/20. -Physical exam findings positive for concerns of significant dehydration with excessively dry skin, poor skin turgor, and dry mucous membranes. -Patient received a 1 L bolus of 0.9% normal saline in the ED and we will continue with gentle hydration with 0.9% normal saline at 75 mL's per hour. -Continuous telemetry monitoring. -Repeat BMP now followed by continued close monitoring with repeat a.m. labs. -Hold nephrotoxic medications including Aldactone, hydrochlorothiazide, losartan, and simvastatin. -Nephrology was consult had, appreciate further recommendations. Hyperkalemia -Potassium 5.5. -Hyperkalemia secondary to combination of use of Aldactone and LASHA. -EKG revealing normal sinus rhythm at 80 bpm with no noted T-wave or ST abnormalities, no U waves present. -Repeat now and continue to monitor closely with repeat a.m. labs. -Continuous telemetry monitoring. Hypertension -Monitor vital signs. Continue daily medication management with metoprolol 25 mg 3 times daily. -Hold losartan secondary to LASHA. Hyperlipidemia -Hold atorvastatin secondary to LASHA. COPD -Continue home oxygen 2 L via nasal cannula. May titrate as needed to maintain SpO2 equal to or greater than 92%. -Encourage incentive spirometry 10-15 times hourly while awake. -Continue MDIs The patient is admitted with an anticipated greater than 2 midnight stay for evaluation of acute renal failure and hyperkalemia CODE STATUS: Full code DVT prophylaxis: Heparin Discussed with: Patient Anticipated discharge date: Clinical course to determine. Anticipated discharge place: Home A total of 45 minutes was spent on the care of this complex patient more than 50% of the time was spent in counseling and care coordination. Past Medical History Past Medical History: COPD, Hyperlipidemia, Hypertension, Osteoarthritis (OA) Additional Past Medical History / Comment(s): Chronic hypoxic respiratory failure/home oxygen at 2L/NC ATC, pulmonary htn, osteoporosis, vitamin D deficiency, cervical spur/bilateral hand pain/decreased ROM, colonoscopy/benign polypectomy History of Any Multi-Drug Resistant Organisms: None Reported Past Surgical History: Tonsillectomy Additional Past Surgical History / Comment(s): colonoscopy with benign polypectomy Past Anesthesia/Blood Transfusion Reactions: No Reported Reaction Past Psychological History: No Psychological Hx Reported Additional Psychological History / Comment(s): Pt resides with her spouse and adult son. She has home oxygen and nebulizer. She states she drives. Smoking Status: Former smoker Past Alcohol Use History: Daily Additional Past Alcohol Use History / Comment(s): Pt started smoking as a teen and quit in 2016. Pt has 1-2 drinks a day Past Drug Use History: None Reported - Past Family History Father Family Medical History: Myocardial Infarction ([place]) Additional Family Medical History / Comment(s): Father lived to be 95 yrs old. Mother Additional Family Medical History / Comment(s): Mother of blood poisoning. Medications and Allergies Home Medications Medication Instructions Recorded Confirmed Type Cholecalciferol [Vitamin D3 (25 2,000 unit PO DAILY 09/09/17 12/26/20 History Mcg = 1000 Iu)] Fluticasone/Vilanterol [Breo 1 puff INHALATION RT-DAILY 09/09/17 12/26/20 History Ellipta 200-25 Mcg INH] Ipratropium/Albuterol Sulfate 2 puff INHALATION RT-QID PRN 09/09/17 12/26/20 History [Combivent Respimat Inhaler] Losartan Potassium [Cozaar] 100 mg PO DAILY 09/09/17 12/26/20 History Metoprolol Tartrate [Lopressor] 25 mg PO TID 09/09/17 12/26/20 History Multivitamins, Thera [Multivitamin 1 tab PO DAILY 09/09/17 12/26/20 History (formulary)] Simvastatin [Zocor] 20 mg PO HS 09/09/17 12/26/20 History Ipratropium-Albuterol Nebulize 3 ml INHALATION RT-QID ampul.neb 09/12/17 12/26/20 Rx [Duoneb 0.5 mg-3 mg/3 ml Soln] Spironolactone 25 mg PO DAILY 12/26/20 12/26/20 History hydroCHLOROthiazide [Hydrodiuril] 25 mg PO DAILY 12/26/20 12/26/20 History predniSONE 5 mg PO DAILY 12/26/20 12/26/20 History Allergies Allergy/AdvReac Type Severity Reaction Status Date / Time No Known Allergies Allergy Verified 12/26/20 13:00 Physical Exam Vitals: Vital Signs Temp Pulse Resp BP Pulse Ox 12/26/20 15:28 97.9 F 88 18 122/75 99 12/26/20 15:00 88 18 122/75 99 12/26/20 14:00 18 99 12/26/20 13:00 90 18 131/62 99 12/26/20 12:00 83 18 131/62 99 12/26/20 11:29 86 18 124/64 99 12/26/20 10:01 97.9 F 87 16 98 Intake and Output 12/26/20 12/26/20 12/26/20 06:59 14:59 22:59 Output Total 100 Balance -100 Output: Urine 100 Uretheral (Henson) 100 Other: Weight 48.081 kg Results CBC & Chem 7: 12/26/20 10:41 12/26/20 10:41 Labs: Abnormal Lab Results - Last 24 Hours (Table) 12/26/20 12/26/20 12/26/20 Range/Units 10:41 10:41 12:47 WBC 11.6 H (3.8-10.6) k/uL RBC 3.63 L (3.80-5.40) m/uL Neutrophils # 9.7 H (1.3-7.7) k/uL Lymphocytes # 0.9 L (1.0-4.8) k/uL Potassium 5.5 H (3.5-5.1) mmol/L BUN 69 H (7-17) mg/dL Creatinine 2.53 H (0.52-1.04) mg/dL Glucose 129 H (74-99) mg/dL Magnesium 1.5 L (1.6-2.3) mg/dL Total Protein 6.1 L (6.3-8.2) g/dL Urine Protein Trace H (Negative) Thrombosis Risk Factor Assmnt - Choose All That Apply Any of the Below Risk Factors Present?: Yes Each Factor Represents 1 point: Serious lung disease incl. pneumonia (< 1month) Other Risk Factors: Yes Each Risk Factor Represents 3 Points: Age 75 years or older Other congenital or acquired thrombophilia - If yes, enter type in comment: No Thrombosis Risk Factor Assessment Total Risk Factor Score: 4 Thrombosis Risk Factor Assessment Level: Moderate Risk <Sarah Dubose - Last Filed: 12/26/20 19:00> Physical Exam Osteopathic Statement: *. No significant issues noted on an osteopathic structural exam other than those noted in the History and Physical/Consult. Vitals: Vital Signs Temp Pulse Pulse Resp BP BP Pulse Ox 12/26/20 16:29 89 12/26/20 16:20 88 12/26/20 16:10 97.5 F L 96 16 147/64 99 12/26/20 15:28 97.9 F 88 18 122/75 99 12/26/20 15:00 88 18 122/75 99 12/26/20 14:00 18 99 12/26/20 13:00 90 18 131/62 99 12/26/20 12:00 83 18 131/62 99 12/26/20 11:29 86 18 124/64 99 12/26/20 10:01 97.9 F 87 16 98 Intake and Output 12/26/20 12/26/20 12/26/20 06:59 14:59 22:59 Output Total 100 Balance -100 Output: Urine 100 Uretheral (Henson) 100 Other: Weight 48.081 kg Results CBC & Chem 7: 12/26/20 10:41 12/26/20 16:44 Labs: Abnormal Lab Results - Last 24 Hours (Table) 12/26/20 12/26/20 12/26/20 Range/Units 10:41 10:41 12:47 WBC 11.6 H (3.8-10.6) k/uL RBC 3.63 L (3.80-5.40) m/uL Neutrophils # 9.7 H (1.3-7.7) k/uL Lymphocytes # 0.9 L (1.0-4.8) k/uL Potassium 5.5 H (3.5-5.1) mmol/L BUN 69 H (7-17) mg/dL Creatinine 2.53 H (0.52-1.04) mg/dL Glucose 129 H (74-99) mg/dL Magnesium 1.5 L (1.6-2.3) mg/dL Total Protein 6.1 L (6.3-8.2) g/dL Urine Protein Trace H (Negative) 12/26/20 Range/Units 16:44 WBC (3.8-10.6) k/uL RBC (3.80-5.40) m/uL Neutrophils # (1.3-7.7) k/uL Lymphocytes # (1.0-4.8) k/uL Potassium (3.5-5.1) mmol/L BUN 63 H (7-17) mg/dL Creatinine 2.01 H (0.52-1.04) mg/dL Glucose 105 H (74-99) mg/dL Magnesium 1.5 L (1.6-2.3) mg/dL Total Protein (6.3-8.2) g/dL Urine Protein (Negative) Assessment and Plan Assessment: Patient seen and examined independently. Patient was also seen by Tu Moctezuma NP and case was discussed. I am in agreement with subjective, physical exam, assessment and plan as written above and amended below. Patient seen and examined at bedside after IV fluids have been given. No increasing shortness of breath. No nausea. No vomiting. Feeling well. General: non toxic, no distress, appears at stated age Derm: warm, dry Head: atraumatic, normocephalic, symmetric Eyes: EOMI, no lid lag, anicteric sclera Mouth: no lip lesion, mucus membranes moist Cardiovascular: S1S2 reg, no murmur, positive posterior tibial pulse bilateral, Lungs: Decreased breath sounds bilateral, no rhonchi, no rales , no accessory muscle use Psych: Alert, oriented, appropriate affect Repeat laboratory analysis reviewed and potassium down to 4.9. Creatinine down to 2.1. Continue with IV fluids overnight. We'll reassess in a.m.
[2020-12-26 16:52] VITALS: RESP 16
[2020-12-26 17:13] LABS: African American GFR (CKD) 26 (>60 ml/min/1.73 sqM); Anion Gap 6 mmol/L; Blood Urea Nitrogen 63 mg/dL (7-17); Carbon Dioxide 27 mmol/L (22-30); Chloride 106 mmol/L (98-107); Glucose 105 mg/dL (74-99); Magnesium 1.5 mg/dL (1.6-2.3); Non-African American GFR(CKD) 22 (>60 ml/min/1.73 sqM); Potassium 4.9 mmol/L (3.5-5.1); Sodium 139 mmol/L (137-145)
[2020-12-26] MEDS: HEPARIN SODIUM,PORCINE 5,000 UNIT/ML 1 ML VIAL SQ SCH (20:31)
[2020-12-26] MEDS: MAGNESIUM SULFATE-D5W PMX 1 GM in DEXTROSE/WATER 1 100ML.BAG IVPB SCH ×2 (20:31→22:38)
[2020-12-26] MEDS ORDERED: NON FORMULARY DRUG (Simvastatin 20 MG Tab) PO SCH (21:00)
[2020-12-27] MEDS: MAGNESIUM SULFATE-D5W PMX 1 GM in DEXTROSE/WATER 1 100ML.BAG IVPB SCH ×2 (01:11→02:27)
[2020-12-27] MEDS: SODIUM CHLORIDE 0.9% 1,000 ML IV SCH ×3 (04:58→17:31)
[2020-12-27] MEDS: HEPARIN SODIUM,PORCINE 5,000 UNIT/ML 1 ML VIAL SQ SCH ×2 (08:30→20:54)
[2020-12-27] MEDS: MULTIVITAMINS, THERA 1 EACH TAB PO SCH (08:30)
[2020-12-27] MEDS: predniSONE 5 MG TAB PO SCH (08:30)
[2020-12-27] MEDS: CHOLECALCIFEROL 25 MCG (1000 IU) TABLET PO SCH (08:30)
[2020-12-27] MEDS: METOPROLOL TARTRATE 25 MG TAB PO SCH (08:30)
[2020-12-27] MEDS: IPRATROPIUM-ALBUTEROL 3 ML NEB INHALATION SCH ×4 (09:41→20:30)
[2020-12-27] MEDS: SYMBICORT 160-4.5 MCG INHALER INHALATION SCH ×2 (09:41→20:30)
[2020-12-27 10:41] VITALS: BMI 22.1
[2020-12-27 11:24] LABS: Basophils % (A) 1 %; Eosinophils # (A) 0.3 k/uL (0-0.7); Eosinophils % (A) 4 %; HGB 10.6 gm/dL (11.4-16.0); Lymphocytes # (A) 1.1 k/uL (1.0-4.8); Lymphocytes % (A) 13 %; MCH 31.3 pg (25.0-35.0); MCV 97.7 fL (80.0-100.0); Mean Platelet Volume 9.8; Monocytes # (A) 0.5 k/uL (0-1.0); Monocytes % (A) 6 %; Neutrophils # (A) 6.5 k/uL (1.3-7.7); Neutrophils % (A) 76 %; Platelet Count 169 k/uL (150-450); RBC 3.38 m/uL (3.80-5.40); RDW 12.9 % (11.5-15.5); WBC 8.5 k/uL (3.8-10.6)
[2020-12-27 11:41] LABS: Chloride 105 mmol/L (98-107); Potassium 4.3 mmol/L (3.5-5.1); Sodium 139 mmol/L (137-145)
[2020-12-27 11:42] LABS: ALT 22 U/L (4-34); AST 28 U/L (14-36); African American GFR (CKD) 32 (>60 ml/min/1.73 sqM); Albumin 3.2 g/dL (3.5-5.0); Albumin/Globulin Ratio 1.6; Alkaline Phosphatase 60 U/L (38-126); Anion Gap 10 mmol/L; Blood Urea Nitrogen 48 mg/dL (7-17); Calcium 8.8 mg/dL (8.4-10.2); Carbon Dioxide 24 mmol/L (22-30); Glucose 191 mg/dL (74-99); Magnesium 2.9 mg/dL (1.6-2.3); Non-African American GFR(CKD) 28 (>60 ml/min/1.73 sqM); Total Bilirubin 0.3 mg/dL (0.2-1.3); Total Protein 5.2 g/dL (6.3-8.2)
--- NOTE | 2020-12-27 13:22 | P.NPCON ---
History of Present Illness - Reason for Consult Consult date: 12/27/20 acute renal failure - Chief Complaint abnormal labs - History of Present Illness a/w abnormal labs from pcp office. no nausea, vomiting or diarrhea. decreased po intake. no nsaid's use or recent contrast studies. k-6.3 (12/24/20) and on admission k- 5.5, bun 69, dredge worker 2.53. renal u/s no obstruction, simple cyst. ivf started, repeat labs today k- 4.3, dredge worker 1.66. baseline dredge worker 1.0 mg/dl. she was taking she was on losartan, aldactone, hctz and bactrim. Review of Systems Constitutional: Reports as per HPI Past Medical History Past Medical History: COPD, Hyperlipidemia, Hypertension, Osteoarthritis (OA) Additional Past Medical History / Comment(s): Chronic hypoxic respiratory failure/home oxygen at 2L/[place] ATC, pulmonary htn, osteoporosis, vitamin D deficiency, cervical spur/bilateral hand pain/decreased ROM, colonoscopy/benign polypectomy History of Any Multi-Drug Resistant Organisms: None Reported Past Surgical History: Tonsillectomy Additional Past Surgical History / Comment(s): colonoscopy with benign polypec ryan Past Anesthesia/Blood Transfusion Reactions: No Reported Reaction Past Psychological History: No Psychological Hx Reported Additional Psychological History / Comment(s): Pt resides with her spouse and adult son. She has home oxygen and nebulizer. She states she drives. Smoking Status: Former smoker Past Alcohol Use History: Daily Additional Past Alcohol Use History / Comment(s): Pt started smoking as a teen and quit in 2016. Pt has 1-2 drinks a day Past Drug Use History: None Reported - Past Family History Father Family Medical History: Myocardial Infarction ([place]) Additional Family Medical History / Comment(s): Father lived to be 95 yrs old. Mother Additional Family Medical History / Comment(s): Mother of blood poisoning. Medications and Allergies Home Medications Medication Instructions Recorded Confirmed Type Cholecalciferol [Vitamin D3 (25 2,000 unit PO DAILY 09/09/17 12/26/20 History Mcg = 1000 Iu)] Fluticasone/Vilanterol [Breo 1 puff INHALATION RT-DAILY 09/09/17 12/26/20 History Ellipta 200-25 Mcg INH] Ipratropium/Albuterol Sulfate 2 puff INHALATION RT-QID PRN 09/09/17 12/26/20 History [Combivent Respimat Inhaler] Losartan Potassium [Cozaar] 100 mg PO DAILY 09/09/17 12/26/20 History Metoprolol Tartrate [Lopressor] 25 mg PO TID 09/09/17 12/26/20 History Multivitamins, Thera [Multivitamin 1 tab PO DAILY 09/09/17 12/26/20 History (formulary)] Simvastatin [Zocor] 20 mg PO HS 09/09/17 12/26/20 History Ipratropium-Albuterol Nebulize 3 ml INHALATION RT-QID ampul.neb 09/12/17 12/26/20 Rx [Duoneb 0.5 mg-3 mg/3 ml Soln] Spironolactone 25 mg PO DAILY 12/26/20 12/26/20 History hydroCHLOROthiazide [Hydrodiuril] 25 mg PO DAILY 12/26/20 12/26/20 History predniSONE 5 mg PO DAILY 12/26/20 12/26/20 History Allergies Allergy/AdvReac Type Severity Reaction Status Date / Time No Known Allergies Allergy Verified 12/26/20 13:00 Physical Exam Vitals: Vital Signs Temp Pulse Pulse Resp BP BP Pulse Ox 12/27/20 12:05 90 12/27/20 11:55 96 12/27/20 11:09 98.0 F 66 16 152/71 100 12/27/20 04:20 97.7 F 85 16 181/72 99 12/26/20 21:24 92 12/26/20 21:12 88 12/26/20 20:20 98.3 F 101 H 16 137/73 98 12/26/20 20:00 16 12/26/20 16:29 89 12/26/20 16:20 88 12/26/20 16:10 97.5 F L 96 16 147/64 99 12/26/20 15:28 97.9 F 88 18 122/75 99 12/26/20 15:00 88 18 122/75 99 12/26/20 14:00 18 99 Intake and Output 12/26/20 12/27/20 12/27/20 22:59 06:59 14:59 Intake Total 300 240 Output Total 726 650 Balance 300 -726 -410 Intake: Intake, IV Titration 300 Amount Sodium Chloride 0.9% 1, 300 000 ml @ 75 mls/hr IV . [id number] [facility] Rx#:[id number] Oral 240 Output: Urine 725 650 Uretheral (Henson) 250 Stool 1 Other: Voiding Method Indwelling Catheter Indwelling Catheter Weight 48.081 kg no acute distress s1 s2 herd lungs clear no edema Results - Lab Results Most recent lab results Calcium 8.8 mg/dL (8.4-10.2) 12/27/20 09:29 Magnesium 2.9 mg/dL (1.6-2.3) H 12/27/20 09:29 12/27/20 09:29 12/27/20 09:29 Assessment and Plan Assessment: 1. LASHA secondary to prerenal process from diuretics and decreased po intake. 2. hyperkalemia secondary to lasha / medications (aldactone/losarta/bactrim) 3. htn Plan: 1. renal function improving, agree with hold bactrim, aldactone, losartan, hctz 2. ivf 3. add amlodipine for htn 4. avoid combination on losartan with aldactone, risk of hyperkalemia 5. change metoprolol to 50 mg bid.
--- NOTE | 2020-12-27 14:30 | P.PN ---
<Tu Moctezuma - Last Filed: 12/27/20 14:21> Subjective Progress Note Date: 12/27/20 Principal diagnosis: Acute kidney injury History of presenting illness: Patient is an 85-year-old female with a past medical history of hypertension, hyperlipidemia, COPD on chronic home oxygen at 2 L, and neuropathy. She presented to the emergency department today with a chief complaint of fatigue and abnormal labs. Patient states that she went to her PCPs office on 12/24/20 secondary to feeling fatigued and had some labs drawn. Patient reports she received a phone call from her doctor's office today telling her she needed to come into the emergency department to be evaluated secondary to having a decreased renal function and elevated potassium. Patient was seen and fully evaluated in the emergency department. Renal ultrasound completed revealing a hypoechoic area to left lower pole of right kidney measuring 1.8 x 1.5 x 2.0 cm which is reported as an inferior pole right renal exophytic cyst. EKG revealing normal sinus rhythm at 80 bpm with no noted T-wave or ST abnormalities, no U waves present. CBC positive for leukocytosis with WBC count of 11.6 otherwise showing no significant abnormalities. BMP revealing hyperkalemia with a potassium of 5.5 And acute renal failure with BUN 69, creatinine 2.53, and GFR of 17. Baseline creatinine is 1.0 with a baseline GFR of 52.1. Urinalysis negative for blood, ketones, or infection. Patient admitted under our services for acute renal failure and hyperkalemia. Upon bedside examination, patient was found to be alert and pleasantly oriented to person, place, time and situation. Patient reports that she was recently placed on prednisone secondary to her advancing COPD and completed a 7 day course of Bactrim on 12/10. Patient reports shortly after that she was then started on Aldactone and hydrochlorothiazide on 12/20/20. Patient reports that over the past week she has had increased fatigue and weakness and this is why she went to her PCP to be evaluated and have labs drawn with resulted in her critical lab values. Patient currently states she feels a little tired, but otherwise denies having any complaints including fever, chills, lightheadedness, dizziness, changes in her vision or hearing, chest pain or palpitations, increased or changes in shortness of breath, changes in her chronic cough or sputum production, abdominal pain, nausea, vomiting, changes in her appetite, recent weight loss or weight gain, or experiencing any changes in or difficulties with urinary or bowel function. Review of systems: Pertinent positives and negatives as discussed in HPI, a complete review of systems was performed and all other systems are negative. Physical exam: Patient was seen and fully evaluated this morning. She was sitting upright in chair at bedside. She reports feeling much better today. Patient was updated on improvement of renal function and resolution of hyperkalemia. Had long discussion with patient regarding diuretic use. At this time patient was informed that we are discontinuing her Aldactone and hydrochlorothiazide from her daily medication regimen. Patient verbalized understanding that she will not resume these medications upon discharge. Patient to remain in hospital overnight for continued hydration as she continues to appear slightly dehydrated and renal function with significant improvement but does remain slightly e levated. Patient reports she ate breakfast this morning. Henson catheter to be removed. Order placed for post void residual. Patient denies having any other complaints at this time including headache, lightheadedness, dizziness, changes in vision or hearing, chest pain or palpitations, shortness of breath, abdominal pain, nausea, vomiting, or any other complaints. General: non toxic, no distress, appears at stated age Derm: warm, dry, poor skin turgor Head: atraumatic, normocephalic, symmetric Eyes: EOMI, no lid lag, anicteric sclera Mouth: no lip lesion, mucus membranes dry Cardiovascular: S1S2 normal with regular rate and rhythm, no murmur, gallop, or rub noted. Positive posterior tibial pulses bilaterally. Cap refill less than 2 seconds. Lungs: Respirations even, regular, and unlabored on 2 L O2 via nasal cannula. Lungs diminished bilaterally. No adventitious lung sounds noted including wheezes, rhonchi, or rales. No accessory muscle use. GI/: Abdomen soft, nontender to palpation, no guarding, no appreciable organomegaly. No CVA tenderness. Henson was placed upon arrival to ED with clear straw-colored urine in collection chamber. Ext: no gross muscle atrophy, no edema, no contractures Neuro: GCS 15. Speech clear. CN II-XII grossly intact, no focal neuro deficits Psych: Alert, oriented, pleasant and cooperative with appropriate affect Assessment and Plan of Care: Acute kidney injury, likely secondary to adverse effects of medication, im proving -As suspected, renal function significantly improving with hydration. Currently BUN 48, creatinine 1.66, and GFR of 28. -We will continue with gentle hydration with 0.9% normal saline at 75 mL's per hour. -Continuous telemetry monitoring. -Repeat BMP with a.m. labs. -Continue hold nephrotoxic medications including losartan, and simvastatin and discussed with patient that we are discontinuing Aldactone and hydrochlorothiazide permanently from her daily medication regimen. -Nephrology following. Hyperkalemia, resolved Hypertension -Monitor vital signs. Continue daily medication management with metoprolol 25 mg 3 times daily. -Hold losartan secondary to LASHA. Hyperlipidemia -Hold atorvastatin secondary to LASHA. COPD -Continue home oxygen 2 L via nasal cannula. May titrate as needed to maintain SpO2 equal to or greater than 92%. -Encourage incentive spirometry 10-15 times hourly while awake. -Continue MDIs The patient is admitted with an anticipated greater than 2 midnight stay for evaluation of acute renal failure and hyperkalemia CODE STATUS: Full code DVT prophylaxis: Heparin Discussed with: Patient Anticipated discharge date: Clinical course to determine. Anticipated discharge place: Home A total of 45 minutes was spent on the care of this complex patient more than 50% of the time was spent in counseling and care coordination. Objective - Vital Signs Vital signs: Vital Signs Temp 97.7 F 12/27/20 04:20 Pulse 85 12/27/20 04:20 Resp 16 12/27/20 04:20 BP 181/72 12/27/20 04:20 Pulse Ox 99 12/27/20 04:20 Intake & Output 12/26/20 12/27/20 12/27/20 18:59 06:59 18:59 Intake Total 300 240 Output Total 100 726 400 Balance 200 -726 -160 Weight 48.081 kg 48.081 kg Intake: Intake, IV Titration 300 Amount Sodium Chloride 0.9% 1, 300 000 ml @ 75 mls/hr IV . [id number] Rx#:[id number] Oral 240 Output: Urine 100 725 400 Uretheral (Henson) 100 Stool 1 Other: Voiding Method Indwelling Catheter Indwelling Catheter - Labs CBC & Chem 7: 12/27/20 09:29 12/27/20 09:29 Labs: Abnormal Lab Results - Last 24 Hours (Table) 12/26/20 12/26/20 Range/Units 12:47 16:44 BUN 63 H (7-17) mg/dL Creatinine 2.01 H (0.52-1.04) mg/dL Glucose 105 H (74-99) mg/dL Magnesium 1.5 L (1.6-2.3) mg/dL Urine Protein Trace H (Negative) <SedrickSarah Linden - Last Filed: 12/27/20 16:52> Objective - Vital Signs Vital signs: Vital Signs Temp 98.0 F 12/27/20 11:09 Pulse 90 12/27/20 12:05 Resp 16 12/27/20 11:09 BP 152/71 12/27/20 11:09 Pulse Ox 100 12/27/20 11:09 Intake & Output 12/26/20 12/27/20 12/27/20 18:59 06:59 18:59 Intake Total 300 240 Output Total 100 726 686 Balance 200 -726 -446 Weight 48.081 kg 48.081 kg Intake: Intake, IV Titration 300 Amount Sodium Chloride 0.9% 1, 300 000 ml @ 75 mls/hr IV . [id number] [facility] Rx#:[id number] Oral 240 Output: Urine 100 725 650 Uretheral (Henson) 100 250 Post Void Residual 36 Stool 1 Other: Voiding Method Indwelling Catheter Indwelling Catheter # Voids 1 - Labs CBC & Chem 7: 12/27/20 09:29 12/27/20 09:29 Labs: Abnormal Lab Results - Last 24 Hours (Table) 12/26/20 12/27/20 12/27/20 Range/Units 16:44 09:29 09:29 RBC 3.38 L (3.80-5.40) m/uL Hgb 10.6 L (11.4-16.0) gm/dL Hct 33.0 L (34.0-46.0) % BUN 63 H 48 H (7-17) mg/dL Creatinine 2.01 H 1.66 H (0.52-1.04) mg/dL Glucose 105 H 191 H (74-99) mg/dL Magnesium 1.5 L 2.9 H (1.6-2.3) mg/dL Total Protein 5.2 L (6.3-8.2) g/dL Albumin 3.2 L (3.5-5.0) g/dL Assessment and Plan Assessment: Patient seen and examined independently. Patient was also seen by Tu Moctezuma NP and case was discussed. I am in agreement with subjective, physical exam, assessment and plan as written above and amended below. States she is feeling well. Feels much improved from yesterday. No other complaints currently. General: non toxic, no distress, appears at stated age Derm: warm, dry Head: atraumatic, normocephalic, symmetric Eyes: EOMI, no lid lag, anicteric sclera Mouth: no lip lesion, mucus membranes moist Cardiovascular: S1S2 reg, no murmur, positive posterior tibial pulse bilateral, Lungs: CTA bilateral, no rhonchi, no rales , no accessory muscle use Abdominal: soft, nontender to palpation, no guarding, no appreciable o rganomegaly Ext: no gross muscle atrophy, no edema, no contractures Neuro: CN II-XI grossly intact, no focal neuro deficits Psych: Alert, oriented, appropriate affect Creatinine greatly improved. We'll decrease normal saline to 50 mL/h. Plan to discharge home off of Aldactone and hydrochlorothiazide. Nephrology increased metoprolol to 50 twice daily from 25 3 times daily and added Norvasc. Continue to monitor blood pressures.
[2020-12-27] MEDS: amLODIPine 10 MG TAB PO SCH (14:56)
[2020-12-27] MEDS: Acetaminophen-Codeine 300-30mg TAB PO PRN ×2 (14:58→21:11)
[2020-12-27] MEDS: METOPROLOL TARTRATE 50 MG TAB PO SCH (20:55)
[2020-12-28 05:19] VITALS: BP 152/69; TEMP 97.3
[2020-12-28] MEDS: MULTIVITAMINS, THERA 1 EACH TAB PO SCH (07:54)
[2020-12-28] MEDS: CHOLECALCIFEROL 25 MCG (1000 IU) TABLET PO SCH (07:54)
[2020-12-28] MEDS: predniSONE 5 MG TAB PO SCH (07:54)
[2020-12-28] MEDS: Acetaminophen-Codeine 300-30mg TAB PO PRN (07:54)
[2020-12-28] MEDS: amLODIPine 10 MG TAB PO SCH (07:54)
[2020-12-28] MEDS: METOPROLOL TARTRATE 50 MG TAB PO SCH (07:54)
[2020-12-28] MEDS: HEPARIN SODIUM,PORCINE 5,000 UNIT/ML 1 ML VIAL SQ SCH (07:55)
[2020-12-28 08:10] LABS: Basophils % (A) 0 %; Eosinophils # (A) 0.3 k/uL (0-0.7); Eosinophils % (A) 4 %; HCT 31.4 % (34.0-46.0); HGB 10.1 gm/dL (11.4-16.0); Lymphocytes % (A) 11 %; MCH 31.3 pg (25.0-35.0); MCHC 32.3 g/dL (31.0-37.0); MCV 96.8 fL (80.0-100.0); Mean Platelet Volume 9.4; Monocytes # (A) 0.7 k/uL (0-1.0); Monocytes % (A) 8 %; Neutrophils % (A) 76 %; Platelet Count 169 k/uL (150-450); RBC 3.24 m/uL (3.80-5.40); WBC 9.2 k/uL (3.8-10.6)
[2020-12-28 08:35] LABS: ALT 22 U/L (4-34); AST 28 U/L (14-36); African American GFR (CKD) 51 (>60 ml/min/1.73 sqM); Albumin 3.1 g/dL (3.5-5.0); Albumin/Globulin Ratio 1.5; Alkaline Phosphatase 53 U/L (38-126); Anion Gap 5 mmol/L; Blood Urea Nitrogen 35 mg/dL (7-17); Calcium 8.6 mg/dL (8.4-10.2); Carbon Dioxide 25 mmol/L (22-30); Chloride 109 mmol/L (98-107); Globulin 2.1 g/dL; Glucose 97 mg/dL (74-99); Magnesium 1.9 mg/dL (1.6-2.3); Non-African American GFR(CKD) 44 (>60 ml/min/1.73 sqM); Sodium 139 mmol/L (137-145); Total Bilirubin 0.3 mg/dL (0.2-1.3); Total Protein 5.2 g/dL (6.3-8.2)
[2020-12-28] MEDS: SYMBICORT 160-4.5 MCG INHALER INHALATION SCH (08:55)
[2020-12-28] MEDS: IPRATROPIUM-ALBUTEROL 3 ML NEB INHALATION SCH (08:55)
[2020-12-28 09:07] VITALS: PULSE 107
--- NOTE | 2020-12-28 09:29 | P.DS ---
<Tu Moctezuma - Last Filed: 12/28/20 09:10> Providers Expected date of discharge: 12/28/20 Hospital Course: Discharge Diagnosis: Acute kidney injury, secondary to adverse effects of medication, improved Hyperkalemia, resolved Hypertension Hyperlipidemia COPD home oxygen dependent Hospital Course: Patient is an 85-year-old female with a past medical history of hypertension, hyperlipidemia, COPD on chronic home oxygen at 2 L, and neuropathy. She presented to our facility with a chief complaint of fatigue accompanied by reports of abnormal labs. Patient was seen by her PCP for fatigue and had some labs drawn revealing hyperkalemia and acute kidney injury and was sent to the emergency department for further evaluation. Patient had a renal ultrasound completed revealing a hypoechoic area to left lower pole of right kidney measuring 1.8 x 1.5 x 2.0 cm which is reported as an inferior pole right renal exophytic cyst. EKG revealing normal sinus rhythm at 80 bpm with no noted T-wave or ST abnormalities, no U waves present. CBC positive for leukocytosis with WBC count of 11.6 otherwise showing no significant abnormalities. BMP revealing hyperkalemia with a potassium of 5.5 And acute renal failure with BUN 69, creatinine 2.53, and GFR of 17. Baseline creatinine is 1.0 with a baseline GFR of 52.1. Urinalysis negative for blood, ketones, or infection. Patient was then admitted under our services for acute renal failure and hyperkalemia. Upon further investigation, it was found that patient recently completed a 7 day course of Bactrim on 12/10/20 for her COPD and was then started on Aldactone and hydrochlorothiazide on 12/20/20 for her blood pressure. Nephrotoxic medications were held and pt was treated with IV hydration, continuous telemetry and close monitoring of labs. She was seen and evaluated by a engineering inspection assistant. Acute kidney injury was secondary to the adverse effects of these medications and significantly improved after hydration with IV fluids. Upon discharge, dario bhatti's BMP revealed a BUN of 35, creatinine 1.15, and GFR 44. Spironolactone, hydrochlorothiazide, and losartan have all been discontinued. Patient's metoprolol was changed to 50 mg twice daily and she was started on amlodipine 10 mg daily. Physical exam: Patient was seen and fully evaluated this morning. She was sitting upright in her chair at the bedside. She reports feeling great and excited that she gets to go home. Pt is urinating independently without any difficulties or retention, eating and drinking well, and denies having any further concerns or complaints at this time. Patient was updated on improvement of renal function and educated about the medication changes being made upon discharge this morning. General: non toxic, no distress, appears at stated age Derm: warm, dry, poor skin turgor Head: atraumatic, normocephalic, symmetric Eyes: EOMI, no lid lag, anicteric sclera Mouth: no lip lesion, mucus membranes dry Cardiovascular: S1S2 normal with regular rate and rhythm, no murmur, gallop, or rub noted. Positive posterior tibial pulses bilaterally. Cap refill less than 2 seconds. Lungs: Respirations even, regular, and unlabored on 2 L O2 via nasal cannula. Lungs diminished bilaterally. No adventitious lung sounds noted including wheezes, rhonchi, or rales. No accessory muscle use. GI/: Abdomen soft, nontender to palpation, no guarding, no appreciable organomegaly. No CVA tenderness. Henson was placed upon arrival to ED with clear straw-colored urine in collection chamber. Ext: no gross muscle atrophy, no edema, no contractures Neuro: GCS 15. Speech clear. CN II-XII grossly intact, no focal neuro deficits Psych: Alert, oriented, pleasant and cooperative with appropriate affect A total of 45 minutes of time were spent preparing this complex discharge summary. Patient Condition at Discharge: Fair Plan - Discharge Summary Discharge Rx Participant: No New Discharge Prescriptions: New Metoprolol Tartrate [Lopressor] 50 mg PO BID 30 Days #60 tab amLODIPine [Norvasc] 10 mg PO DAILY 30 Days #30 tab Continue Simvastatin [Zocor] 20 mg PO HS Cholecalciferol [Vitamin D3 (25 Mcg = 1000 Iu)] 2,000 unit PO DAILY Multivitamins, Thera [Multivitamin (formulary)] 1 tab PO DAILY Ipratropium/Albuterol Sulfate [Combivent Respimat Inhaler] 2 puff INHALATION RT-QID PRN PRN Reason: uses as alternative to duoneb Fluticasone/Vilanterol [Breo Ellipta 200-25 Mcg INH] 1 puff INHALATION RT- DAILY Ipratropium-Albuterol Nebulize [Duoneb 0.5 mg-3 mg/3 ml Soln] 3 ml INHALATION RT-QID ampul.neb predniSONE 5 mg PO DAILY Discontinued Metoprolol Tartrate [Lopressor] 25 mg PO TID Losartan Potassium [Cozaar] 100 mg PO DAILY hydroCHLOROthiazide [Hydrodiuril] 25 mg PO DAILY Spironolactone 25 mg PO DAILY Discharge Medication List Cholecalciferol [Vitamin D3 (25 Mcg = 1000 Iu)] 2,000 unit PO DAILY 09/09/17 [History] Fluticasone/Vilanterol [Breo Ellipta 200-25 Mcg INH] 1 puff INHALATION RT-DAILY 09/09/17 [History] Ipratropium/Albuterol Sulfate [Combivent Respimat Inhaler] 2 puff INHALATION RT- QID PRN 09/09/17 [History] Multivitamins, Thera [Multivitamin (formulary)] 1 tab PO DAILY 09/09/17 [Histo ry] Simvastatin [Zocor] 20 mg PO HS 09/09/17 [History] Ipratropium-Albuterol Nebulize [Duoneb 0.5 mg-3 mg/3 ml Soln] 3 ml INHALATION RT-QID ampul.neb 09/12/17 [Rx] predniSONE 5 mg PO DAILY 12/26/20 [History] Metoprolol Tartrate [Lopressor] 50 mg PO BID 30 Days #60 tab 12/28/20 [Rx] amLODIPine [Norvasc] 10 mg PO DAILY 30 Days #30 tab 12/28/20 [Rx] Follow up Appointment(s)/Referral(s): Reggie Wang MD [Primary Care Provider] - 1-2 days Patient Instructions/Handouts: Metoprolol (By mouth), Amlodipine (By mouth), Acute Kidney Injury (DC), Hyperkalemia (DC) Activity/Diet/Wound Care/Special Instructions: Activity: As tolerated Diet: Heart healthy diet Special Instructions: Please review her medication list, as we discussed that there were many medication changes made on your visit today. Please call your PCP, Dr. Wang to set up a follow up appointment and be sure to bring your hospital discharge papers with you to this appointment. It was truly a pleasure having the opportunity to care for you throughout your hospital stay!! Discharge Disposition: HOME SELF-CARE <Sarah Dubose - Last Filed: 12/28/20 15:25> Providers Date of admission: 12/26/20 14:30 Attending physician: Sarah Dubose DO Consults: 12/26/20 17:15 Consult Physician Urgent Consulting Provider: Donald Arias Consult Reason/Comments: acute renal failure Do you want consulting provider notified?: Yes Primary care physician: Reggie Wang MD Hospital Course: Patient seen and examined independently. Patient was also seen by Tu Moctezuma NP and case was discussed. I am in agreement with discharge diagnosis, hospital course, and physical exam as written above and amended below. Patient seen and examined. She has no complaints currently. All questions were answered. She is aware not to take the spironolactone or hydrochlorothiazide upon discharge. General: non toxic, no distress, appears at stated age Derm: warm, dry Head: atraumatic, normocephalic, symmetric Eyes: EOMI, no lid lag, anicteric sclera Mouth: no lip lesion, mucus membranes moist Cardiovascular: S1S2 reg, no murmur, positive posterior tibial pulse bilateral, Lungs: Decreased breath sounds bilateral, no accessory muscle use Abdominal: soft, nontender to palpation, no guarding, no appreciable organomegaly Ext: no gross muscle atrophy, no edema, no contractures
--- NOTE | 2020-12-28 11:40 | P.PN ---
Subjective Progress Note Date: 12/28/20 Follow-up for acute kidney injury. Seen and examined this morning Objective - Vital Signs Vital signs: Vital Signs Temp 97.3 F L 12/28/20 04:45 Pulse 107 H 12/28/20 09:06 Resp 16 12/28/20 04:45 BP 152/69 12/28/20 04:45 Pulse Ox 97 12/28/20 08:55 Intake & Output 12/27/20 12/28/20 12/28/20 18:59 06:59 18:59 Intake Total 240 Output Total 686 0 Balance -446 0 Weight 48.081 kg Intake: Oral 240 Output: Urine 650 Uretheral (Henson) 250 Post Void Residual 36 Stool 0 Other: Voiding Method Indwelling Catheter Indwelling Catheter # Voids 1 1 1 - Exam No Acute distress S1-S2 heard Lungs clear No edema - Labs CBC & Chem 7: 12/28/20 07:49 12/28/20 07:49 Labs: Abnormal Lab Results - Last 24 Hours (Table) 12/27/20 12/28/20 12/28/20 Range/Units 09:29 07:49 07:49 RBC 3.24 L (3.80-5.40) m/uL Hgb 10.1 L (11.4-16.0) gm/dL Hct 31.4 L (34.0-46.0) % Chloride 109 H (98-107) mmol/L BUN 48 H 35 H (7-17) mg/dL Creatinine 1.66 H 1.15 H (0.52-1.04) mg/dL Glucose 191 H (74-99) mg/dL Magnesium 2.9 H (1.6-2.3) mg/dL Total Protein 5.2 L 5.2 L (6.3-8.2) g/dL Albumin 3.2 L 3.1 L (3.5-5.0) g/dL Assessment and Plan Assessment: 1. LASHA secondary to prerenal process from diuretics and decreased po intake. 2. hyperkalemia secondary to lasha / medications (aldactone/losarta/bactrim), resolved 3. htn Plan: 1. renal function improving, agree with holding bactrim, aldactone, losartan, hctz 2. Stop IV fluids 3. Continue with amlodipine and metoprolol for hypertension 4. avoid combination on losartan with aldactone, risk of hyperkalemia 5. stable from nephrology for discharge
== END 2020-12-28 11:50 | disposition home or self-care (01) | DRG 683 ==
LOC: EC 10:00 → 5NMEDONC 14:30
PROVIDERS: ADMIT Internal Medicine; ATTEND Internal Medicine
DX: N17.9 Acute kidney failure, unspecified (principal); J96.11 Chronic respiratory failure with hypoxia; I27.20 Pulmonary hypertension, unspecified; Z99.81 Dependence on supplemental oxygen; J44.9 Chronic obstructive pulmonary disease, unspecified; M46.02 Spinal enthesopathy, cervical region; Z20.822 Contact with and (suspected) exposure to COVID-19; E86.0 Dehydration; E87.5 Hyperkalemia; I10 Essential (primary) hypertension; E78.5 Hyperlipidemia, unspecified; M19.90 Unspecified osteoarthritis, unspecified site; D72.829 Elevated white blood cell count, unspecified; M81.0 Age-related osteoporosis without current pathological fracture; N28.1 Cyst of kidney, acquired; G62.9 Polyneuropathy, unspecified; Z71.3 Dietary counseling and surveillance; Z79.52 Long term (current) use of systemic steroids; Z79.899 Other long term (current) drug therapy; Z86.010 Personal history of colon polyps; Z98.890 Other specified postprocedural states; Z87.891 Personal history of nicotine dependence; Z82.49 Family history of ischemic heart disease and other diseases of the circulatory system
CPT/HCPCS: 36415; 76770; 80048; 80053; 81003; 82306; 83735; 83970; 84100; 85025; 85652; 86140; 87635; 93005; 94640; 94760; 96360; 96361; 99285

== ENCOUNTER → 2021-03-03 | Outpatient (CLI) | payer MEDICARE, BC ==
--- NOTE | 2021-03-03 10:44 | BD ---
EXAMINATION TYPE: Axial Bone Density DATE OF EXAM: 03/03/2021 COMPARISON: 10.19.2018 CLINICAL HISTORY: 85 YR OLD FEMALE....ICD-10 CODE: M81.0 OSTEOPOROSIS Height: 56.4 Weight: 116 FRAX RISK QUESTIONS: Glucocorticoids (More than 3mos): YES (Ex: prednisone, prednisolone, methylprednisolone, dexamethasone, and hydrocortisone). 3. Menopause before 45: AT 46 YRS OLD 4. Malnutrition: FRAIL RISK FACTORS HISTORY OF: Family History of Osteoporosis: YES, MOTHER Active: NO, IN W/C..O2 Postmenopausal woman: YES, AT AGE 46 Lost more than 2 inches in height since high school: YES Frequent falls: UNSTEADY, W/C O2 Poor Health: YES Hyperparathyroidism: UNSURE Adrenal Insufficiency: UNSURE MEDICATIONS: Prednisone or other steroids: YES, CHRONIC, COPD INHALERS AND PREDNISONE FOR LUNGS FOR VERY LONG TIME How Long: Thyroid Medications: Which medication: How Long: Osteoporosis Medications: YES, FOSAMAX FOR ABOUT 15 YRS Additional Medications: BP MEDS, STATIN FOR CHOLESTEROL, REFLUX MEDS, COPD MEDS, EOS, SINGULAR VIT D , Additional History: COPD, OSTEOPOROSIS, CHOLESTEROL, HYPERTENSION, ON 02, IN WHEELCHAIR, UNHEALTHY, A RTHRITIS EXAM MEASUREMENTS: Bone mineral densitometry was performed using the [employer] System. Bone mineral density as measured about the Lumbar spine is: ----- L1-L4(G/cm2): 1.172 T Score Values are as follows: ----- L1: 1.5 ----- L2: -0.9 ----- L3: -0.9 ----- L4: 0.1 ----- L1-L4: -0.1 Bone mineral density has: Decreased -11.9% since study of: 10.19.2018 Bone mineral density about the R hip (g/cm2): 0.748 Bone mineral density about the L hip (g/cm2): 0.836 T Score values are as follows: -----R Neck: -2.7 -----L Neck: -2.3 -----R Total: -2.1 -----L Total: -1.4 Bone mineral density has: Decreased -2.7% since study of: 10.19.2018 FRAX%s: THERE IS A 30.4% CHANCE FOR A MAJOR OSTEOPOROTIC FX AND A 13.2% FOR HIP.....PROBABILITY FO R FX IN 10 YRS TIME IMPRESSION: Osteoporosis right femoral neck (T Score less than -2.5). There is increased fracture risk and therapy is usually indicated based on age. Re-Screen 1-2 years. NOTE: T-SCORE=SD OF THE YOUNG ADULT MEAN.
== END | disposition home or self-care (01) ==
LOC: RADBDWWP 09:03
PROVIDERS: ATTEND Internal Medicine
DX: M81.0 Age-related osteoporosis without current pathological fracture (principal); M85.89 Other specified disorders of bone density and structure, multiple sites; Z78.0 Asymptomatic menopausal state
CPT/HCPCS: 77080

== ENCOUNTER 2021-07-04 06:46 | Emergency (ER) | payer MEDICARE, BC ==
[2021-07-04 06:53] VITALS: TEMP 98.7
--- NOTE | 2021-07-04 07:14 | ED ---
General Adult HPI - General Chief complaint: Abdominal Pain Stated complaint: Constipation Time Seen by Provider: 07/04/21 06:57 Source: patient, family, RN notes reviewed Mode of arrival: ambulatory Limitations: no limitations - History of Present Illness Initial comments: Patient is a pleasant 85-year-old female presenting to the emergency department with complaints of concerns for constipation. Onset of symptoms was yesterday. Patient has been straining some. Patient has had some mild loose stool. Patient states she did have some nausea however this was minimal and is not worried about it. No vomiting. No abdominal pain. No fevers. No history of chronic constipation. - Related Data Home Medications Medication Instructions Recorded Confirmed Cholecalciferol [Vitamin D3 (25 2,000 unit PO DAILY 09/09/17 12/26/20 Mcg = 1000 Iu)] Fluticasone/Vilanterol [Breo 1 puff INHALATION RT-DAILY 09/09/17 12/26/20 Ellipta 200-25 Mcg Inhaler] Ipratropium/Albuterol Sulfate 2 puff INHALATION RT-QID PRN 09/09/17 12/26/20 [Combivent Respimat Inhaler] Multivitamins, Thera [Multivitamin 1 tab PO DAILY 09/09/17 12/26/20 (formulary)] Simvastatin [Zocor] 20 mg PO HS 09/09/17 12/26/20 predniSONE 5 mg PO DAILY 12/26/20 12/26/20 Previous Rx's Medication Instructions Recorded Ipratropium-Albuterol Nebulize 3 ml INHALATION RT-QID ampul.neb 09/12/17 [Duoneb 0.5 mg-3 mg/3 ml Soln] Metoprolol Tartrate [Lopressor] 50 mg PO BID 30 Days #60 tab 12/28/20 amLODIPine [Norvasc] 10 mg PO DAILY 30 Days #30 tab 12/28/20 Hydrocortisone [Anusol-Hc] 1 applic RECTAL TID PRN #30 gm 07/04/21 Allergies Allergy/AdvReac Type Severity Reaction Status Date / Time No Known Allergies Allergy Verified 07/04/21 06:53 Review of Systems ROS Statement: Those systems with pertinent positive or pertinent negative responses have been documented in the HPI. ROS Other: All systems not noted in ROS Statement are negative. Constitutional: Denies: fever Eyes: Denies: eye pain ENT: Denies: ear pain Respiratory: Denies: cough Cardiovascular: Denies: chest pain Endocrine: Denies: fatigue Gastrointestinal: Reports: as per HPI, constipation. Denies: abdominal pain Genitourinary: Denies: urgency Musculoskeletal: Denies: back pain Skin: Denies: rash Neurological: Denies: weakness Past Medical History Past Medical History: COPD, Hyperlipidemia, Hypertension, Osteoarthritis (OA) Additional Past Medical History / Comment(s): Chronic hypoxic respiratory failure/home oxygen at 2L/[place] ATC, pulmonary htn, osteoporosis, vitamin D deficiency, cervical spur/bilateral hand pain/decreased ROM, colonoscopy/benign polypectomy History of Any Multi-Drug Resistant Organisms: None Reported Past Surgical History: Tonsillectomy Additional Past Surgical History / Comment(s): colonoscopy with benign polypectomy Past Anesthesia/Blood Transfusion Reactions: No Reported Reaction Past Psychological History: No Psychological Hx Reported Smoking Status: Former smoker Past Alcohol Use History: Daily Past Drug Use History: None Reported - Past Family History Father Family Medical History: Myocardial Infarction ([place]) Additional Family Medical History / Comment(s): Father lived to be 95 yrs old. Mother Additional Family Medical History / Comment(s): Mother of blood poisoning. General Exam Limitations: no limitations General appearance: alert, in no apparent distress Head exam: Present: normocephalic Eye exam: Present: normal appearance Neck exam: Present: normal inspection Respiratory exam: Present: normal lung sounds bilaterally Cardiovascular Exam: Present: regular rate, normal rhythm GI/Abdominal exam: Present: soft, normal bowel sounds. Absent: distended, tenderness, guarding, rebound, rigid, pulsatile mass Extremities exam: Present: normal inspection Neurological exam: Present: alert Psychiatric exam: Present: normal affect, normal mood Skin exam: Present: normal color Course Vital Signs 07/04/21 07/04/21 06:47 07:26 Temperature 98.7 F Pulse Rate 107 H 103 H Respiratory 28 H 19 Rate Blood Pressure 155/61 129/67 O2 Sat by Pulse 96 97 Oximetry Medical Decision Making - Medical Decision Making Patient with mild production following enema. Patient reevaluated and requests discharge with oral dose of medication. Patient bites return for abdominal pain, vomiting, or fever. Patient advised close follow-up with her doctor. - Radiology Data Radiology results: image reviewed (Nonspecific strongly favor nonobstructive bowel gas pattern.) Disposition Clinical Impression: External hemorrhoid, Constipation Disposition: HOME SELF-CARE Condition: Stable Instructions (If sedation given, give patient instructions): Constipation (ED), High Fiber Diet (ED) Additional Instructions: Please do follow-up with your primary care physician in the next day or 2 for recheck. Prescription for steroid cream is been sent to your pharmacy. Return for abdominal pain, fevers, vomiting, unable to have bowel movement, worsening symptoms or other concerns. Prescriptions: Hydrocortisone [Anusol-Hc] 1 applic RECTAL TID PRN #30 gm PRN Reason: Hemorrhoids Is patient prescribed a controlled substance at d/c from ED?: No Referrals: Reggie Wang MD [Primary Care Provider] - 1-2 days Time of Disposition: 08:58
[2021-07-04 07:27] VITALS: BP 129/67; PULSE 103; RESP 19
--- NOTE | 2021-07-04 07:51 | XR ---
EXAMINATION TYPE: XR abdomen 1V DATE OF EXAM: 07/04/2021 7:41 AM CLINICAL HISTORY: Constipation. TECHNIQUE: Single supine KUB image of the abdomen is obtained. COMPARISON: None. FINDINGS: Some paucity of bowel gas. Visualized gas seen in nondistended small and large bowel loops. Scattered bilateral pelvic phleboliths. Underlying scoliosis. Lung bases are clear. Moderate vascula r calcification pelvis. Moderate axial joint space loss both hips. IMPRESSION: Overall nonspecific strongly favor a nonobstructive bowel gas pattern.
[2021-07-04] MEDS ORDERED: NA PHOS,M-B/NA PHOS,DI-BA 133 ML ENEMA RECTAL STA (08:08)
[2021-07-04] MEDS ORDERED: LACTULOSE 20 GM/30 ML CUP PO ONE (08:57)
== END 2021-07-04 09:38 | disposition home or self-care (01) ==
LOC: EC 06:46
DX: K59.00 Constipation, unspecified (principal); K64.4 Residual hemorrhoidal skin tags; I10 Essential (primary) hypertension; E78.5 Hyperlipidemia, unspecified; J44.9 Chronic obstructive pulmonary disease, unspecified; M19.90 Unspecified osteoarthritis, unspecified site; M81.0 Age-related osteoporosis without current pathological fracture; Z79.52 Long term (current) use of systemic steroids; Z79.899 Other long term (current) drug therapy; Z87.891 Personal history of nicotine dependence; Z82.49 Family history of ischemic heart disease and other diseases of the circulatory system
CPT/HCPCS: 74018; 99283

== ENCOUNTER 2021-08-27 10:24 | Emergency (ER) | payer MEDICARE, BC ==
[2021-08-27 10:46] VITALS: BP 121/52; PULSE 71; RESP 20; TEMP 97.4
[2021-08-27] MEDS ORDERED: CLINDAMYCIN 600 MG in DEXTROSE 5% IN WATER 50 ML IVPB STA ×2 (11:28)
[2021-08-27 11:53] LABS: Albumin 3.7 g/dL (3.5-5.0); Calcium 8.4 mg/dL (8.4-10.2); Total Bilirubin 0.9 mg/dL (0.2-1.3); Total Protein 6.3 g/dL (6.3-8.2)
[2021-08-27 11:55] LABS: Magnesium 1.2 mg/dL (1.6-2.3); Potassium 4.7 mmol/L (3.5-5.1)
[2021-08-27 11:59] LABS: Basophils % (A) 0 %; Eosinophils # (A) 0.1 k/uL (0-0.7); Eosinophils % (A) 1 %; HCT 36.3 % (34.0-46.0); HGB 12.3 gm/dL (11.4-16.0); Lymphocytes # (A) 1.6 k/uL (1.0-4.8); Lymphocytes % (A) 19 %; MCH 32.2 pg (25.0-35.0); MCHC 33.9 g/dL (31.0-37.0); MCV 94.9 fL (80.0-100.0); Mean Platelet Volume 9.6; Monocytes # (A) 0.4 k/uL (0-1.0); Monocytes % (A) 5 %; Neutrophils # (A) 6.5 k/uL (1.3-7.7); Neutrophils % (A) 74 %; Platelet Count 270 k/uL (150-450); RBC 3.82 m/uL (3.80-5.40); WBC 8.8 k/uL (3.8-10.6)
--- NOTE | 2021-08-27 13:42 | ED ---
Skin/Abscess/FB HPI - General Chief complaint: Skin/Abscess/Foreign Body Stated complaint: sore on left arm Time Seen by Provider: 08/27/21 10:48 Source: patient, RN/MD, RN notes reviewed Mode of arrival: wheelchair Limitations: no limitations - History of Present Illness Initial comments: 85-year-old female who presents with complaints of left arm injury she has very thin skin and apparently had some skin slippages. She was treated outpatient with Keflex without much improvement her family physician starting office and sent here for reevaluation. She denies any fevers chills sweats no nausea vomiting. No other complaints modifying factors - Related Data Home Medications Medication Instructions Recorded Confirmed Cholecalciferol [Vitamin D3 (25 2,000 unit PO DAILY 09/09/17 12/26/20 Mcg = 1000 Iu)] Fluticasone/Vilanterol [Breo 1 puff INHALATION RT-DAILY 09/09/17 12/26/20 Ellipta 200-25 Mcg Inhaler] Ipratropium/Albuterol Sulfate 2 puff INHALATION RT-QID PRN 09/09/17 12/26/20 [Combivent Respimat Inhaler] Multivitamins, Thera [Multivitamin 1 tab PO DAILY 09/09/17 12/26/20 (formulary)] Simvastatin [Zocor] 20 mg PO HS 09/09/17 12/26/20 predniSONE 5 mg PO DAILY 12/26/20 12/26/20 Previous Rx's Medication Instructions Recorded Ipratropium-Albuterol Nebulize 3 ml INHALATION RT-QID ampul.neb 09/12/17 [Duoneb 0.5 mg-3 mg/3 ml Soln] Metoprolol Tartrate [Lopressor] 50 mg PO BID 30 Days #60 tab 12/28/20 amLODIPine [Norvasc] 10 mg PO DAILY 30 Days #30 tab 12/28/20 Hydrocortisone [Anusol-Hc] 1 applic RECTAL TID PRN #30 gm 07/04/21 Doxycycline [Vibramycin] 100 mg PO BID 1 Days #14 capsule 08/27/21 Allergies Allergy/AdvReac Type Severity Reaction Status Date / Time No Known Allergies Allergy Verified 08/27/21 10:46 Review of Systems ROS Statement: Those systems with pertinent positive or pertinent negative responses have been documented in the HPI. ROS Other: All systems not noted in ROS Statement are negative. Past Medical History Past Medical History: COPD, Hyperlipidemia, Hypertension, Osteoarthritis (OA) Additional Past Medical History / Comment(s): Chronic hypoxic respiratory failure/home oxygen at 2L/[place] ATC, pulmonary htn, osteoporosis, vitamin D deficiency, cervical spur/bilateral hand pain/decreased ROM, colonoscopy/benign polypectomy History of Any Multi-Drug Resistant Organisms: None Reported Past Surgical History: Tonsillectomy Additional Past Surgical History / Comment(s): colonoscopy with benign polypectomy Past Anesthesia/Blood Transfusion Reactions: No Reported Reaction Past Psychological History: No Psychological Hx Reported Smoking Status: Former smoker Past Alcohol Use History: Daily Past Drug Use History: None Reported - Past Family History Father Family Medical History: Myocardial Infarction ([place]) Additional Family Medical History / Comment(s): Father lived to be 95 yrs old. Mother Additional Family Medical History / Comment(s): Mother of blood poisoning. General Exam - General Exam Comments Initial Comments: This is a well-developed well-nourished awake alert oriented 3 female Limitations: no limitations General appearance: alert, in no apparent distress Head exam: Present: atraumatic, normocephalic, normal inspection Eye exam: Present: normal appearance, PERRL, EOMI. Absent: scleral icterus, conjunctival injection, periorbital swelling ENT exam: Present: normal exam, mucous membranes moist Neck exam: Present: normal inspection, full ROM. Absent: tenderness, meningismus, lymphadenopathy Respiratory exam: Absent: respiratory distress, wheezes, rales, rhonchi, stridor Cardiovascular Exam: Present: normal heart sounds. Absent: systolic murmur, diastolic murmur, rubs, gallop, clicks GI/Abdominal exam: Absent: distended, tenderness, guarding, rebound, rigid Extremities exam: Present: full ROM, normal capillary refill, other (Examination left forearm reveals approximately 3 x 2 cm area of healing in process. No lymphangitis no localized erythema or discharge. Patient does demonstrate very thin integument.). Absent: tenderness, pedal edema, joint swelling, calf tenderness Back exam: Present: normal inspection Neurological exam: Present: alert, oriented X3, CN II-XII intact Psychiatric exam: Present: normal affect, normal mood Skin exam: Present: warm, dry, intact, normal color. Absent: rash Course Vital Signs 08/27/21 10:41 Temperature 97.4 F L Pulse Rate 71 Respiratory 20 Rate Blood Pressure 121/52 O2 Sat by Pulse 94 L Oximetry Medical Decision Making - Medical Decision Making I did discuss findings with Dr. Wang on several occasions patient be discharged eventually with doxycycline for antibiotic and follow-up in one week prior to the findings of the wound cultures I had given the patient IV clindamycin. This is showing resistance on the CASH patient will be therefore placed on doxycycline. - Lab Data Result diagrams: 08/27/21 11:21 08/27/21 11: Lab Results 08/27/21 08/27/21 Range/Units 11: 11:21 WBC 8.8 (3.8-10.6) k/uL RBC 3.82 (3.80-5.40) m/uL Hgb 12.3 (11.4-16.0) gm/dL Hct 36.3 (34.0-46.0) % MCV 94.9 (80.0-100.0) fL MCH 32.2 (25.0-35.0) pg MCHC 33.9 (31.0-37.0) g/dL RDW 15.0 (11.5-15.5) % Plt Count 270 (150-450) k/uL MPV 9.6 Neutrophils % 74 % Lymphocytes % 19 % Monocytes % 5 % Eosinophils % 1 % Basophils % 0 % Neutrophils # 6.5 (1.3-7.7) k/uL Lymphocytes # 1.6 (1.0-4.8) k/uL Monocytes # 0.4 (0-1.0) k/uL Eosinophils # 0.1 (0-0.7) k/uL Basophils # 0.0 (0-0.2) k/uL Manual Slide Review Performed RBC Morphology Normal Sodium 132 L (137-145) mmol/L Potassium 4.7 (3.5-5.1) mmol/L Chloride 94 L (98-107) mmol/L Carbon Dioxide 28 (22-30) mmol/L Anion Gap 10 mmol/L BUN 24 H (7-17) mg/dL Creatinine 1.04 (0.52-1.04) mg/dL Est GFR (CKD-EPI)AfAm 57 (>60 ml/min/1.73 sqM) Est GFR (CKD-EPI)NonAf 50 (>60 ml/min/1.73 sqM) Glucose 127 H (74-99) mg/dL Calcium 8.4 (8.4-10.2) mg/dL Magnesium 1.2 L (1.6-2.3) mg/dL Total Bilirubin 0.9 (0.2-1.3) mg/dL AST 156 H (14-36) U/L ALT 48 H (4-34) U/L Alkaline Phosphatase 133 H (38-126) U/L Total Protein 6.3 (6.3-8.2) g/dL Albumin 3.7 (3.5-5.0) g/dL Disposition Clinical Impression: Open wound of left forearm Disposition: HOME SELF-CARE Condition: Good Instructions (If sedation given, give patient instructions): Wound Infection (DC) Prescriptions: Doxycycline [Vibramycin] 100 mg PO BID 1 Days #14 capsule Is patient prescribed a controlled substance at d/c from ED?: No Referrals: Reggie Wang MD [Primary Care Provider] - 1-2 days
== END 2021-08-27 14:03 | disposition home or self-care (01) ==
LOC: EC 10:24
DX: S51.802A Unspecified open wound of left forearm, initial encounter (principal); I10 Essential (primary) hypertension; J44.9 Chronic obstructive pulmonary disease, unspecified; E78.5 Hyperlipidemia, unspecified; M19.90 Unspecified osteoarthritis, unspecified site; Z79.52 Long term (current) use of systemic steroids; Z79.899 Other long term (current) drug therapy; Z87.891 Personal history of nicotine dependence; Z82.49 Family history of ischemic heart disease and other diseases of the circulatory system; X58.XXXA Exposure to other specified factors, initial encounter
CPT/HCPCS: 36415; 80053; 83735; 85025; 87040; 96365; 99283

== ENCOUNTER 2021-08-28 10:28 | Emergency (ER) | payer MEDICARE, BC ==
[2021-08-28 10:46] VITALS: BP 131/64; PULSE 75; RESP 118; TEMP 98
--- NOTE | 2021-08-28 11:50 | CT ---
EXAMINATION TYPE: CT brain hosea tate DATE OF EXAM: 08/28/2021 COMPARISON: HISTORY: Fall last night with weakness CT DLP: 1323.2 mGycm Automated exposure control for dose reduction was used. TECHNIQUE: CT scan of the head and cervical spine are performed without contrast. FINDINGS: There is no acute intracranial hemorrhage, mass effect, or midline shift identified. Mode rate generalized degenerative change. Low-attenuation in the white matter nonspecific but most typica l remote ischemia. Basal ganglia calcifications seen. No midline shift or mass effect. Suggestion of a 8 mm soft tissue calcification adjacent left parietal bone correlate clinically. Diffuse osteopenia noted.. Diffuse osteopenia. There is a multilevel severe degenerative disc disease and facet arthropathy with multilevel foraminal encroachment and canal stenosis suspected. Correlate clinically. 3 mm anterolis thesis of C3 relative to C4 appears degenerative. Atherosclerotic change of the carotid arteries. Emp hysematous changes involving the lungs. There is a 3 mm nodule in the right lung apex. Right thyroid enlargement with multinodular thyroid IMPRESSION: 1. There is no acute fracture or dislocation evident in the cervical spine. Severe multilevel degener ative disc disease with 3 mm anterolisthesis C3 relative to C4. Foraminal encroachment and canal sten osis suspected. 2. No acute intracranial hemorrhage, mass effect, or midline shift is seen. Degenerative and nonspeci fic white matter changes most typical of remote ischemia 3. Severe emphysema of the lungs with 3 mm nodule right lung apex. 4. Thyroid enlargement with multinodular thyroid.
--- NOTE | 2021-08-28 12:44 | ED ---
Head Injury HPI - General Chief complaint: Head Injury Stated complaint: Fall last night,head injury Time Seen by Provider: 08/28/21 11:09 Source: patient, RN notes reviewed Mode of arrival: ambulatory Limitations: no limitations - History of Present Illness Initial comments: Patient is an 85-year-old female with history of COPD, hypertension, presenting to the emergency department after she fell last night. Patient states that she uses a stool to step up onto her bed, she missed the stool and fell on the right side of her body, she did hit the right side of her head on a hardwood floor. She denies loss of consciousness, she is not on blood thinners. She denies any neck pain. She is complaining of some mild soreness of her right hip but states she thinks it just bruised. She is able to ambulate without difficulty, she can move her hip around. She denies any surgeries of her right hip. She denies any abdominal pain, nausea or vomiting, no blurry vision. She has no further complaints at this time. Her vitals are stable. - Related Data Home Medications Medication Instructions Recorded Confirmed Cholecalciferol [Vitamin D3 (25 2,000 unit PO DAILY 09/09/17 12/26/20 Mcg = 1000 Iu)] Fluticasone/Vilanterol [Breo 1 puff INHALATION RT-DAILY 09/09/17 12/26/20 Ellipta 200-25 Mcg Inhaler] Ipratropium/Albuterol Sulfate 2 puff INHALATION RT-QID PRN 09/09/17 12/26/20 [Combivent Respimat Inhaler] Multivitamins, Thera [Multivitamin 1 tab PO DAILY 09/09/17 12/26/20 (formulary)] Simvastatin [Zocor] 20 mg PO HS 09/09/17 12/26/20 predniSONE 5 mg PO DAILY 12/26/20 12/26/20 Previous Rx's Medication Instructions Recorded Ipratropium-Albuterol Nebulize 3 ml INHALATION RT-QID ampul.neb 09/12/17 [Duoneb 0.5 mg-3 mg/3 ml Soln] Metoprolol Tartrate [Lopressor] 50 mg PO BID 30 Days #60 tab 12/28/20 amLODIPine [Norvasc] 10 mg PO DAILY 30 Days #30 tab 12/28/20 Hydrocortisone [Anusol-Hc] 1 applic RECTAL TID PRN #30 gm 07/04/21 Doxycycline [Vibramycin] 100 mg PO BID 1 Days #14 capsule 08/27/21 Allergies/Adverse reactions: Allergies Allergy/AdvReac Type Severity Reaction Status Date / Time No Known Allergies Allergy Verified 08/28/21 10:43 Review of Systems ROS Statement: Those systems with pertinent positive or pertinent negative responses have been documented in the HPI. ROS Other: All systems not noted in ROS Statement are negative. Past Medical History Past Medical History: COPD, Hyperlipidemia, Hypertension, Osteoarthritis (OA) Additional Past Medical History / Comment(s): Chronic hypoxic respiratory failure/home oxygen at 2L/[place] ATC, pulmonary htn, osteoporosis, vitamin D deficiency, cervical spur/bilateral hand pain/decreased ROM, colonoscopy/benign polypectomy History of Any Multi-Drug Resistant Organisms: None Reported Past Surgical History: Tonsillectomy Additional Past Surgical History / Comment(s): colonoscopy with benign polypectomy Past Anesthesia/Blood Transfusion Reactions: No Reported Reaction Past Psychological History: No Psychological Hx Reported Smoking Status: Former smoker Past Alcohol Use History: Daily Past Drug Use History: None Reported - Past Family History Father Family Medical History: Myocardial Infarction ([place]) Additional Family Medical History / Comment(s): Father lived to be 95 yrs old. Mother Additional Family Medical History / Comment(s): Mother of blood poisoning. General Exam - General Exam Comments Initial Comments: GENERAL: Patient is well-developed and well-nourished. Patient is nontoxic and in no acute distress. HEAD: Patient has a small hematoma noted to the right occipital area, she has also small hematoma towards the right front forehead. Mild bruising noted. EYES: Pupils equal round and reactive to light, extraocular movements intact, sclera anicteric, conjunctiva are normal. Eyelids were unremarkable. ENT: TMs normal, nares patent, oropharynx clear without exudates. Moist mucous membranes. NECK: Normal range of motion, supple without lymphadenopathy or JVD. No midline tenderness. LUNGS: Unlabored respirations. Breath sounds clear to auscultation bilaterally and equal. No wheezes rales or rhonchi. HEART: Regular rate and rhythm without murmurs, rubs or gallops. ABDOMEN: Soft, nontender, normoactive bowel sounds. No guarding, no rebound. No masses appreciated. MUSCULOSKELETAL: Very mild soreness noted to the lateral aspect of her right hip over she has full range of motion, able to ambulate. Normal extremities with adequate strength and normal range of motion, no pitting or edema. No clubbing or cyanosis. NEUROLOGICAL: Patient is alert and oriented x 3. Motor and sensory are also intact. Cranial nerves II through XII grossly intact. Symmetrical smile. Normal speech, normal gait. PSYCH: Normal mood, normal affect. SKIN: Warm, Dry, normal turgor, no rashes or lesions noted. Limitations: no limitations Course Vital Signs 08/28/21 10:43 Temperature 98 F Pulse Rate 75 Respiratory 118 H Rate Blood Pressure 131/64 O2 Sat by Pulse 96 Oximetry Medical Decision Making - Medical Decision Making Patient is an 85-year-old female history of COPD, presenting after she fell last night, she missed a step getting out of bed. She fell on the right side of her body, did hit her head on the floor. No loss of consciousness, she is not on blood thinners. CT of the brain and C-spine revealed no acute fractures of the C-spine, no acute intracranial hemorrhage. She does have small hematoma present. She is able to fully ambulate on her right hip. I discussed with her is most likely contusions. Recommended ice to the areas, Tylenol for any discomfort. She is agreeable to this plan of care and she is stable for dis charge. Return parameters were discussed with her and she verbalized understanding. Case discussed with Dr. doe. Disposition Clinical Impression: Fall, Scalp hematoma Disposition: HOME SELF-CARE Condition: Stable Instructions (If sedation given, give patient instructions): Hematoma (ED) Additional Instructions: Please return to the Emergency Department if symptoms worsen or any other concerns. May apply ice to the area for swelling control. May take Tylenol for any discomfort. Follow-up with your primary care as needed. Is patient prescribed a controlled substance at d/c from ED?: No Referrals: Reggie Wang MD [Primary Care Provider] - 1-2 days Time of Disposition: 12:43
== END 2021-08-28 13:11 | disposition home or self-care (01) ==
LOC: EC 10:28
DX: S00.03XA Contusion of scalp, initial encounter (principal); I10 Essential (primary) hypertension; E78.5 Hyperlipidemia, unspecified; J44.9 Chronic obstructive pulmonary disease, unspecified; M19.90 Unspecified osteoarthritis, unspecified site; M81.0 Age-related osteoporosis without current pathological fracture; Z90.89 Acquired absence of other organs; Z87.891 Personal history of nicotine dependence; W08.XXXA Fall from other furniture, initial encounter
CPT/HCPCS: 70450; 72125; 99284

== ENCOUNTER 2021-09-02 06:39 | Emergency (ER) | payer MEDICARE, BC ==
[2021-09-02 06:51] VITALS: PULSE 67; RESP 18; TEMP 97
[2021-09-02] MEDS ORDERED: MORPHINE SULFATE 2 MG/ML SYRINGE IM ONE (07:02)
--- NOTE | 2021-09-02 07:44 | XR ---
EXAMINATION TYPE: XR elbow complete 3 views RT, XR tibia fibula 2 views RT DATE OF EXAM: 09/02/2021 COMPARISON: None HISTORY: 85-year-old female fall and pain FINDINGS: Right elbow: Vascular calcifications. Mild bony spurring at the medial and lateral condyles. Some mild degenerativ e joint space narrowing along the trochlear joint with marginal spurring. There may be a small anteri or elbow joint effusion. No acute fracture, subluxation, dislocation is however seen. On the AP view, questionable periostitis in the region of the ulnar-sided proximal ulnar shaft. Tibia/fibula: Vascular calcifications. Diffuse muscle atrophy though with some soft tissue swelling along the media l aspect of the mid to distal leg. No periostitis or osteolysis. No acute fracture. IMPRESSION: 1. Right elbow: There may be a small anterior elbow joint effusion. However, no acute osseous abnorm ality is seen. Questionable periostitis versus superimposition shadow/vascular calcifications along t he ulnar margin of the proximal ulnar shaft. Conservative radiographic follow-up in 3 months is recom mended to reassess this region. 2. Tibial/fibula: Diffuse muscle atrophy but with some soft tissue swelling along the medial aspect o f the mid to distal leg. Vascular calcifications. No acute osseous abnormality seen.
--- NOTE | 2021-09-02 07:52 | ED ---
Fall HPI - General Chief Complaint: Fall Stated Complaint: Fall, RT leg lac Time Seen by Provider: 09/02/21 06:53 Source: family, EMS, RN notes reviewed Mode of arrival: wheelchair - History of Present Illness Initial Comments: Patient is an 85-year-old female that presents to the emergency department complaining of right dominguez and right elbow pain. She notes she tripped over a rug this one around 2:00 and has a skin tear to her right dominguez right knee and right elbow. She notes she has some pain in her right elbow. She doesn't pain while at rest is approximately a 4-10. She notes that touching the skin tear makes the pain worse. She is otherwise well-appearing in good spirits in no apparent distress. She denied chest pain shortness of breath headache nausea vomiting diarrhea constipation fever fatigue chills. - Related Data Home Medications Medication Instructions Recorded Confirmed Cholecalciferol [Vitamin D3 (25 2,000 unit PO DAILY 09/09/17 12/26/20 Mcg = 1000 Iu)] Fluticasone/Vilanterol [Breo 1 puff INHALATION RT-DAILY 09/09/17 12/26/20 Ellipta 200-25 Mcg Inhaler] Ipratropium/Albuterol Sulfate 2 puff INHALATION RT-QID PRN 09/09/17 12/26/20 [Combivent Respimat Inhaler] Multivitamins, Thera [Multivitamin 1 tab PO DAILY 09/09/17 12/26/20 (formulary)] Simvastatin [Zocor] 20 mg PO HS 09/09/17 12/26/20 predniSONE 5 mg PO DAILY 12/26/20 12/26/20 Previous Rx's Medication Instructions Recorded Ipratropium-Albuterol Nebulize 3 ml INHALATION RT-QID ampul.neb 09/12/17 [Duoneb 0.5 mg-3 mg/3 ml Soln] Metoprolol Tartrate [Lopressor] 50 mg PO BID 30 Days #60 tab 12/28/20 amLODIPine [Norvasc] 10 mg PO DAILY 30 Days #30 tab 12/28/20 Hydrocortisone [Anusol-Hc] 1 applic RECTAL TID PRN #30 gm 07/04/21 Doxycycline [Vibramycin] 100 mg PO BID 1 Days #14 capsule 08/27/21 Allergies Allergy/AdvReac Type Severity Reaction Status Date / Time No Known Allergies Allergy Verified 09/02/21 06:51 Review of Systems ROS Statement: Those systems with pertinent positive or pertinent negative responses have been documented in the HPI. ROS Other: All systems not noted in ROS Statement are negative. Past Medical History Past Medical History: COPD, Hyperlipidemia, Hypertension, Osteoarthritis (OA) Additional Past Medical History / Comment(s): Chronic hypoxic respiratory failure/home oxygen at 2L/NC ATC, pulmonary htn, osteoporosis, vitamin D deficiency, cervical spur/bilateral hand pain/decreased ROM, colonoscopy/benign polypectomy History of Any Multi-Drug Resistant Organisms: None Reported Past Surgical History: Tonsillectomy Additional Past Surgical History / Comment(s): colonoscopy with benign polypectomy Past Anesthesia/Blood Transfusion Reactions: No Reported Reaction Past Psychological History: No Psychological Hx Reported Smoking Status: Former smoker Past Alcohol Use History: Daily Past Drug Use History: None Reported - Past Family History Father Family Medical History: Myocardial Infarction ([place]) Additional Family Medical History / Comment(s): Father lived to be 95 yrs old. Mother Additional Family Medical History / Comment(s): Mother of blood poisoning. General Exam General appearance: alert, in no apparent distress Head exam: Present: atraumatic, normocephalic, normal inspection Eye exam: Present: normal appearance, PERRL, EOMI. Absent: scleral icterus, c onjunctival injection, periorbital swelling ENT exam: Present: normal exam, mucous membranes moist Neck exam: Present: normal inspection Respiratory exam: Present: normal lung sounds bilaterally. Absent: respiratory distress, wheezes, rales, rhonchi, stridor Cardiovascular Exam: Present: regular rate, normal rhythm, normal heart sounds. Absent: systolic murmur, diastolic murmur, rubs, gallop, clicks Extremities exam: Present: normal inspection, full ROM, normal capillary refill. Absent: tenderness, pedal edema, joint swelling, calf tenderness Neurological exam: Present: alert, oriented X3 Psychiatric exam: Present: normal affect, normal mood Skin exam: Present: warm, dry, intact, normal color, other (Large skin turgor right dominguez measuring approximately 8" x 4", skin tear right knee measuring 3" x 3", skin to her right elbow measuring 2" x 2".). Absent: rash Course Vital Signs 09/02/21 06:46 Temperature 97.0 F L Pulse Rate 67 Respiratory 18 Rate Blood Pressure 113/60 O2 Sat by Pulse 96 Oximetry Medical Decision Making - Medical Decision Making 85-year-old female with skin tear right dominguez right knee and right elbow after tripping over a rug this morning. X-ray right tib-fib, right elbow, 2 mg of morphine ordered. X-rays negative for any acute fractures or dislocations. Wound care and dressings applied. Patient is in stable condition. Case discussed with Dr. Hamm, patient discharge home. - Radiology Data Radiology results: report reviewed, image reviewed Right elbow x-ray: There may be a small anterior elbow joint effusion. However no acute osseous abnormality is seen. X-ray right tib-fib: Diffuse muscle atrophy but with some soft tissue swelling along the medial aspect of the mid to distal leg. Vascular calcifications noted osseous abnormality. Disposition Clinical Impression: Skin tear of elbow without complication, Noninfected skin tear of right leg Disposition: HOME SELF-CARE Condition: Stable Instructions (If sedation given, give patient instructions): Fall Prevention for Older Adults (ED) Additional Instructions: Please return to the Emergency Department if symptoms worsen or any other concerns. follow-up with primary care 1-2 days. Follow-up with wound care clinic to get supplies. Is patient prescribed a controlled substance at d/c from ED?: No Referrals: Reggie Wang MD [Primary Care Provider] - 1-2 days [facility] [NON-STAFF] - 1-2 days Time of Disposition: 08:29
[2021-09-02 08:35] VITALS: BP 124/64
== END 2021-09-02 08:46 | disposition home or self-care (01) ==
LOC: EC 06:39
DX: S51.011A Laceration without foreign body of right elbow, initial encounter (principal); S81.811A Laceration without foreign body, right lower leg, initial encounter; J44.9 Chronic obstructive pulmonary disease, unspecified; E78.5 Hyperlipidemia, unspecified; I10 Essential (primary) hypertension; M19.90 Unspecified osteoarthritis, unspecified site; I27.20 Pulmonary hypertension, unspecified; M81.0 Age-related osteoporosis without current pathological fracture; Z90.89 Acquired absence of other organs; Z87.891 Personal history of nicotine dependence; W01.0XXA Fall on same level from slipping, tripping and stumbling without subsequent striking against object, initial encounter
CPT/HCPCS: 99283; 96372; 73080; 73590; J2270

== ENCOUNTER → 2021-10-28 | Outpatient (CLI) | payer MEDICARE, BC ==
--- NOTE | 2021-10-28 13:50 | US ---
EXAMINATION TYPE: US venous doppler duplex LE BI DATE OF EXAM: 10/28/2021 1:29 PM COMPARISON: US Venous 2018 CLINICAL HISTORY: 85-year-old female M79.89 SWELLING OF LOWER LEG. SIDE PERFORMED: Bilateral TECHNIQUE: The lower extremity deep venous system is examined utilizing real time linear array sonog sam with graded compression, doppler sonography and color-flow sonography. FINDINGS: VESSELS IMAGED: Common Femoral Vein Deep Femoral Vein Greater Saphenous Vein * Femoral Vein Popliteal Vein Small Saphenous Vein * Proximal Calf Veins (* superficial vessels) Right Leg: Negative for DVT Left Leg: Negative for DVT [employer] notes: Difficult exam due to limited patient mobility and presence of shadowing plaque from anterior arteries IMPRESSION: No evidence for DVT within the bilateral lower extremities imaged from the groin to the upper calves.
== END | disposition home or self-care (01) ==
LOC: RADUSWWP 13:01
PROVIDERS: ATTEND Internal Medicine
DX: M79.89 Other specified soft tissue disorders (principal)
CPT/HCPCS: 93970

== ENCOUNTER 2022-01-04 12:06 | Inpatient (IN) | payer MEDICARE, BC ==
[2022-01-04] MEDS ORDERED: IBUPROFEN 600 MG TAB PO STA (12:48)
[2022-01-04] MEDS ORDERED: ACETAMINOPHEN TAB 500 MG TAB PO STA (12:48)
--- NOTE | 2022-01-04 13:31 | ED ---
General Adult HPI - General Chief complaint: Extremity Problem,Nontraumatic Stated complaint: weakness Time Seen by Provider: 01/04/22 12:10 Source: patient, EMS, RN notes reviewed, old records reviewed Mode of arrival: EMS Limitations: no limitations - History of Present Illness Initial comments: This is an 86-year-old female presents emergency Department because her home care nurse while wrapping her legs said that she had a fever was tachycardic. Patient states she also feels extremely weak. Patient states the nurse told her that the wound was looking good and did not look infected. Patient denies knowing she had a fever until the nurse told her. Patient denies any shortness of breath difficult breathing or cough. Patient denies any chest pain palpitations. Patient denies any headache patient denies numbness weakness per patient denies any lightheadedness or dizziness. Patient denies any abdominal pain patient any nausea vomiting diarrhea. Patient denies any dysuria hematuria urinary frequency. Patient denies any back pain. Patient states the wound on the right leg is no more painful than his baseline. Patient states she did not notice any increased redness or drainage. Patient is vaccinated. - Related Data Home Medications Medication Instructions Recorded Confirmed Fluticasone/Vilanterol [Breo 1 puff INHALATION RT-DAILY 09/09/17 01/04/22 Ellipta 200-25 Mcg Inhaler] Ipratropium/Albuterol Sulfate 2 puff INHALATION RT-QID PRN 09/09/17 01/04/22 [Combivent Respimat Inhaler] predniSONE 5 mg PO DAILY 12/26/20 01/04/22 Atorvastatin [Lipitor] 20 mg PO HS 01/04/22 01/04/22 Mirtazapine 7.5 mg PO HS 01/04/22 01/04/22 Previous Rx's Medication Instructions Recorded Ipratropium-Albuterol Nebulize 3 ml INHALATION RT-QID ampul.neb 09/12/17 [Duoneb 0.5 mg-3 mg/3 ml Soln] Metoprolol Tartrate [Lopressor] 50 mg PO BID 30 Days #60 tab 12/28/20 amLODIPine [Norvasc] 10 mg PO DAILY 30 Days #30 tab 12/28/20 Allergies Allergy/AdvReac Type Severity Reaction Status Date / Time No Known Allergies Allergy Verified 01/04/22 14:11 Review of Systems ROS Statement: Those systems with pertinent positive or pertinent negative responses have been documented in the HPI. ROS Other: All systems not noted in ROS Statement are negative. Past Medical History Past Medical History: COPD, Hyperlipidemia, Hypertension, Osteoarthritis (OA) Additional Past Medical History / Comment(s): Chronic hypoxic respiratory failure/home oxygen at 2L/NC ATC, pulmonary htn, osteoporosis, vitamin D deficiency, cervical spur/bilateral hand pain/decreased ROM, colonoscopy/benign polypectomy History of Any Multi-Drug Resistant Organisms: None Reported Past Surgical History: Tonsillectomy Additional Past Surgical History / Comment(s): colonoscopy with benign polypectomy Past Anesthesia/Blood Transfusion Reactions: No Reported Reaction Past Psychological History: No Psychological Hx Reported Smoking Status: Former smoker Past Alcohol Use History: Daily Past Drug Use History: None Reported - Past Family History Father Family Medical History: Myocardial Infarction ([place]) Additional Family Medical History / Comment(s): Father lived to be 95 yrs old. Mother Additional Family Medical History / Comment(s): Mother of blood poisoning. General Exam - General Exam Comments Initial Comments: GENERAL: Patient is well-developed and well-nourished. Patient is nontoxic and well- hydrated and is in mild distress. ENT: Neck is soft and supple. No significant lymphadenopathy is noted. Oropharynx is clear. Moist mucous membranes. Neck has full range of motion without eliciting any pain. EYES: The sclera were anicteric and conjunctiva were pink and moist. Extraocular movements were intact and pupils were equal round and reactive to light. Eyelids were unremarkable. PULMONARY: Patient has diffuse diminished breath sounds. CARDIOVASCULAR: Patient has no irregular heart rate at about 130 beats a minute. ABDOMEN: Soft and nontender with normal bowel sounds. SKIN: Skin is clear with no lesions or rashes and otherwise unremarkable. NEUROLOGIC: Patient is alert and oriented x3. Cranial nerves II through XII are grossly intact. Motor and sensory are also intact. Normal speech, volume and content. Symmetrical smile. MUSCULOSKELETAL: Normal extremities with adequate strength and full range of motion. No lower extremity swelling or edema. No calf tenderness. Area of the her nurse prior to arrival LYMPHATICS: No significant lymphadenopathy is noted PSYCHIATRIC: Normal psychiatric evaluation. Limitations: no limitations Course Vital Signs 01/04/22 01/04/22 01/04/22 12:28 12:30 14:50 Temperature 100.3 F H 100.4 F H Pulse Rate 120 H 118 H Respiratory 18 24 22 Rate Blood Pressure 144/91 137/63 O2 Sat by Pulse 97 98 Oximetry Medical Decision Making - Medical Decision Making EKG shows atrial fibrillation with rapid ventricular response at 131 bpm QRS is 79 Q-T intervals 314 QTC is 391 per patient's EKG showsan elevation or depression. Chest x-ray shows left lower lobe pneumonia. Patient was given antibiotics. The diagnosis of pneumonia was made at 3:30. - Lab Data Result diagrams: 01/04/22 13:20 01/04/22 13:20 Lab Results 01/04/22 01/04/22 01/04/22 Range/Units 13:20 13:20 13:20 WBC 24.0 H (3.8-10.6) k/uL RBC 3.79 L (3.80-5.40) m/uL Hgb 11.7 (11.4-16.0) gm/dL Hct 35.3 (34.0-46.0) % MCV 93.2 (80.0-100.0) fL MCH 30.9 (25.0-35.0) pg MCHC 33.2 (31.0-37.0) g/dL RDW 14.0 (11.5-15.5) % Plt Count 200 (150-450) k/uL MPV 9.4 Neutrophils % 88 % Lymphocytes % 6 % Monocytes % 3 % Eosinophils % 1 % Basophils % 1 % Neutrophils # 21.1 H (1.3-7.7) k/uL Lymphocytes # 1.5 (1.0-4.8) k/uL Monocytes # 0.8 (0-1.0) k/uL Eosinophils # 0.3 (0-0.7) k/uL Basophils # 0.1 (0-0.2) k/uL PT 11.2 (9.0-12.0) sec INR 1.0 (<1.2) APTT 25.9 (22.0-30.0) sec Sodium (137-145) mmol/L Potassium (3.5-5.1) mmol/L Chloride (98-107) mmol/L Carbon Dioxide (22-30) mmol/L Anion Gap mmol/L BUN (7-17) mg/dL Creatinine (0.52-1.04) mg/dL Est GFR (CKD-EPI)AfAm (>60 ml/min/1.73 sqM) Est GFR (CKD-EPI)NonAf (>60 ml/min/1.73 sqM) Glucose (74-99) mg/dL Plasma Lactic Acid Willie (0.7-2.0) mmol/L Calcium (8.4-10.2) mg/dL Total Bilirubin (0.2-1.3) mg/dL AST (14-36) U/L ALT (4-34) U/L Alkaline Phosphatase (38-126) U/L Troponin I (0.000-0.034) ng/mL Total Protein (6.3-8.2) g/dL Albumin (3.5-5.0) g/dL Urine Color Yellow Urine Appearance Clear (Clear) Urine pH 6.5 (5.0-8.0) Ur Specific [place] 1.010 (1.001-1.035) Urine Protein 2+ H (Negative) Urine Glucose (UA) Negative (Negative) Urine Ketones Negative (Negative) Urine Blood Small H (Negative) Urine Nitrite Negative (Negative) Urine Bilirubin Negative (Negative) Urine Urobilinogen <2.0 (<2.0) mg/dL Ur Leukocyte Esterase Negative (Negative) Urine RBC <1 (0-5) /hpf Urine WBC <1 (0-5) /hpf Ur Squamous Epith Cells 1 (0-4) /hpf Coronavirus (PCR) (Not Detectd) Influenza Type A RNA (Not Detectd) Influenza Type B (PCR) (Not Detectd) 01/04/22 01/04/22 01/04/22 Range/Units 13:20 13:20 13:20 WBC (3.8-10.6) k/uL RBC (3.80-5.40) m/uL Hgb (11.4-16.0) gm/dL Hct (34.0-46.0) % MCV (80.0-100.0) fL MCH (25.0-35.0) pg MCHC (31.0-37.0) g/dL RDW (11.5-15.5) % Plt Count (150-450) k/uL MPV Neutrophils % % Lymphocytes % % Monocytes % % Eosinophils % % Basophils % % Neutrophils # (1.3-7.7) k/uL Lymphocytes # (1.0-4.8) k/uL Monocytes # (0-1.0) k/uL Eosinophils # (0-0.7) k/uL Basophils # (0-0.2) k/uL PT (9.0-12.0) sec INR (<1.2) APTT (22.0-30.0) sec Sodium 138 (137-145) mmol/L Potassium 3.3 L (3.5-5.1) mmol/L Chloride 100 (98-107) mmol/L Carbon Dioxide 29 (22-30) mmol/L Anion Gap 9 mmol/L BUN 18 H (7-17) mg/dL Creatinine 0.75 (0.52-1.04) mg/dL Est GFR (CKD-EPI)AfAm 84 (>60 ml/min/1.73 sqM) Est GFR (CKD-EPI)NonAf 73 (>60 ml/min/1.73 sqM) Glucose 81 (74-99) mg/dL Plasma Lactic Acid Willie 1.7 (0.7-2.0) mmol/L Calcium 8.0 L (8.4-10.2) mg/dL Total Bilirubin 1.5 H (0.2-1.3) mg/dL AST 39 H (14-36) U/L ALT 32 (4-34) U/L Alkaline Phosphatase 234 H (38-126) U/L Troponin I 0.036 H* (0.000-0.034) ng/mL Total Protein 5.8 L (6.3-8.2) g/dL Albumin 3.2 L (3.5-5.0) g/dL Urine Color Urine Appearance (Clear) Urine pH (5.0-8.0) Ur Specific [place] (1.001-1.035) Urine Protein (Negative) Urine Glucose (UA) (Negative) Urine Ketones (Negative) Urine Blood (Negative) Urine Nitrite (Negative) Urine Bilirubin (Negative) Urine Urobilinogen (<2.0) mg/dL Ur Leukocyte Esterase (Negative) Urine RBC (0-5) /hpf Urine WBC (0-5) /hpf Ur Squamous Epith Cells (0-4) /hpf Coronavirus (PCR) (Not Detectd) Influenza Type A RNA (Not Detectd) Influenza Type B (PCR) (Not Detectd) 01/04/22 01/04/22 Range/Units 13:57 13:57 WBC (3.8-10.6) k/uL RBC (3.80-5.40) m/uL Hgb (11.4-16.0) gm/dL Hct (34.0-46.0) % MCV (80.0-100.0) fL MCH (25.0-35.0) pg MCHC (31.0-37.0) g/dL RDW (11.5-15.5) % Plt Count (150-450) k/uL MPV Neutrophils % % Lymphocytes % % Monocytes % % Eosinophils % % Basophils % % Neutrophils # (1.3-7.7) k/uL Lymphocytes # (1.0-4.8) k/uL Monocytes # (0-1.0) k/uL Eosinophils # (0-0.7) k/uL Basophils # (0-0.2) k/uL PT (9.0-12.0) sec INR (<1.2) APTT (22.0-30.0) sec Sodium (137-145) mmol/L Potassium (3.5-5.1) mmol/L Chloride (98-107) mmol/L Carbon Dioxide (22-30) mmol/L Anion Gap mmol/L BUN (7-17) mg/dL Creatinine (0.52-1.04) mg/dL Est GFR (CKD-EPI)AfAm (>60 ml/min/1.73 sqM) Est GFR (CKD-EPI)NonAf (>60 ml/min/1.73 sqM) Glucose (74-99) mg/dL Plasma Lactic Acid Willie (0.7-2.0) mmol/L Calcium (8.4-10.2) mg/dL Total Bilirubin (0.2-1.3) mg/dL AST (14-36) U/L ALT (4-34) U/L Alkaline Phosphatase (38-126) U/L Troponin I (0.000-0.034) ng/mL Total Protein (6.3-8.2) g/dL Albumin (3.5-5.0) g/dL Urine Color Urine Appearance (Clear) Urine pH (5.0-8.0) Ur Specific [place] (1.001-1.035) Urine Protein (Negative) Urine Glucose (UA) (Negative) Urine Ketones (Negative) Urine Blood (Negative) Urine Nitrite (Negative) Urine Bilirubin (Negative) Urine Urobilinogen (<2.0) mg/dL Ur Leukocyte Esterase (Negative) Urine RBC (0-5) /hpf Urine WBC (0-5) /hpf Ur Squamous Epith Cells (0-4) /hpf Coronavirus (PCR) Not Detected (Not Detectd) Influenza Type A RNA Not Detected (Not Detectd) Influenza Type B (PCR) Not Detected (Not Detectd) Disposition Clinical Impression: New onset a-fib, Pneumonia Disposition: ADMITTED IP TO THIS HOSP Referrals: Reggie Wang MD [Primary Care Provider] - 1-2 days Time of Disposition: 15:34
[2022-01-04 13:43] LABS: Basophils # (A) 0.1 k/uL (0-0.2); Basophils % (A) 1 %; Eosinophils # (A) 0.3 k/uL (0-0.7); Eosinophils % (A) 1 %; HCT 35.3 % (34.0-46.0); HGB 11.7 gm/dL (11.4-16.0); Lymphocytes # (A) 1.5 k/uL (1.0-4.8); Lymphocytes % (A) 6 %; MCH 30.9 pg (25.0-35.0); MCHC 33.2 g/dL (31.0-37.0); MCV 93.2 fL (80.0-100.0); Mean Platelet Volume 9.4; Monocytes # (A) 0.8 k/uL (0-1.0); Monocytes % (A) 3 %; Neutrophils # (A) 21.1 k/uL (1.3-7.7); Neutrophils % (A) 88 %; Platelet Count 200 k/uL (150-450); RBC 3.79 m/uL (3.80-5.40)
[2022-01-04 13:52] LABS: Appearance,Urine Clear (Clear); Bilirubin,Urine Negative (Negative); Blood,Urine Small (Negative); Color,Urine Yellow; Glucose,Urine (UA) Negative (Negative); Ketones,Urine Negative (Negative); Leukocyte Esterase,Urine Negative (Negative); Nitrite,Urine Negative (Negative); PH, Urine 6.5 (5.0-8.0); Partial Thromboplastin Time 25.9 sec (22.0-30.0); Protein,Urine 2+ (Negative); Prothrombin Time 11.2 sec (9.0-12.0); RBC,Urine <1 /hpf (0-5); Squamous Epithelial Cell,Urine 1 /hpf (0-4); Urobilinogen,Urine <2.0 mg/dL (<2.0); WBC,Urine <1 /hpf (0-5)
[2022-01-04 13:56] LABS: Albumin 3.2 g/dL (3.5-5.0); Potassium 3.3 mmol/L (3.5-5.1); Total Bilirubin 1.5 mg/dL (0.2-1.3); Total Protein 5.8 g/dL (6.3-8.2)
[2022-01-04] MEDS ORDERED: cefTRIAXone IN SWFI 1,000 MG/10 ML SYRINGE IVP STA (14:25)
[2022-01-04] MEDS: SODIUM CHLORIDE 0.9% 500 ML 500 ML IV SCH ×2 (14:44→14:46)
--- NOTE | 2022-01-04 14:54 | XR ---
EXAMINATION TYPE: XR chest 2V DATE OF EXAM: 01/04/2022 COMPARISON: 08/22/2019 HISTORY: Shortness of breath TECHNIQUE: Frontal and lateral views of the chest are obtained. FINDINGS: Scattered senescent parenchymal changes noted. Hyperinflation compatible with COPD. There is evidence of left lower lobe infiltrate and/or atelectasis. Patchy density right perihilar r egion as well. Heart size is stable. Mediastinal structures are stable and grossly unremarkable. No evidence for hilar prominence. Degenerative changes dorsal spine. IMPRESSION: 1. There is evidence of left lower lobe infiltrate and/or atelectasis. Patchy density right perihila r region as well.
[2022-01-04] MEDS ORDERED: AZITHROMYCIN 500 MG in SODIUM CHLORIDE 0.9% 250 ML IVPB STA (15:34)
[2022-01-04] MEDS ORDERED: PNEUMONIA PROTOCOL UTILIZED 1 EACH MISC PO PRN (15:34)
[2022-01-04] MEDS ORDERED: POTASSIUM CHLORIDE ER 20 MEQ TAB.ER PO STA (15:38)
[2022-01-04] MEDS ORDERED: HEPARIN SODIUM 1,000 UN/ML (10ML VL) IV ONE (15:39)
[2022-01-04] MEDS ORDERED: HEPARIN SOD,PORK IN 0.45% NACL 25,000 UNIT in 0.45% NACL 1 250ML.BAG IV SCH (15:45)
[2022-01-04] MEDS ORDERED: ALBUTEROL NEBULIZED 2.5 MG/3 ML INHALATION SCH (16:00)
[2022-01-04] MEDS ORDERED: IPRATROPIUM-ALBUTEROL 3 ML NEB INHALATION PRN (16:02)
[2022-01-04] MEDS ORDERED: DILTIAZEM DRIP BOLUS FROM BAG 1 MG SOLN IV ONE (16:48)
[2022-01-04] MEDS ORDERED: NALOXONE 0.4 MG/ML 1 ML VIAL IV PRN (17:01)
[2022-01-04] MEDS ORDERED: oxyCODONE-APAP 5-325MG 1 EACH TAB PO PRN (17:01)
[2022-01-04] MEDS ORDERED: ACETAMINOPHEN TAB 325 MG TAB PO PRN (17:01)
[2022-01-04] MEDS ORDERED: MELATONIN 3 MG TABLET PO PRN (17:01)
[2022-01-04] MEDS ORDERED: ASPIRIN 81 MG PO STA (17:07)
[2022-01-04] MEDS ORDERED: DILTIAZEM 125 MG in SODIUM CHLORIDE 0.9% 100 ML IV SCH (17:15)
--- NOTE | 2022-01-04 17:18 | P.HPIM ---
<Tu Moctezuma - Last Filed: 01/04/22 16:45> History of Present Illness H&P Date: 01/04/22 History of Presenting Illness: Patient is a very pleasant 86-year-old female with a past medical history of [employer] home oxygen dependent on 2 L at all times, hypertension, and hyperlipidemia. She presented to the emergency department with a chief complaint of fever and tachycardia. Patient has healing wound to left lower extremity and she has been under care of wound care for treatment/dressing changes. Patient reports when home care nurse evaluated her she was told that she had a fever and her heart was beating very fast. Upon arrival to the emergency department patient was found to be in new onset atrial fibrillation with RVR. An EKG was completed showing A. fib RVR at 131 bpm. Chest x-ray was then completed revealing left lower lobe infiltrate and/or atelectasis along with patchy density in right parahilar region. Lab work significant for leukocytosis with WBC count of 24.0 with left shift, hypokalemia with potassium 3.3, prerenal azotemia with elevated BUN of 18, hyperbilirubinemia with bilirubin of 1.5, AST 39, an alkaline phosphatase of 234. Troponin elevated at 0.036. Patient started on IV antibiotics azithromycin and Rocephin for treatment of community-acquired pneumonia. Patient then started on heparin infusion for new onset A. fib RVR. Patient was admitted under our services with consultation to cardiology and pulmonology. Upon examination at bedside, patient resting comfortably denied having any headache, lightheadedness, dizziness, chest pain, increased shortness of breath at rest, increase her changes and chronic cough, abdominal pain, nausea, vomiting, or experiencing any numbness/tingling/weakness in her extremities. Patient did report feeling palpitations and short of breath with exertion and when lying down accompanied by increased congestion/phlegm pro duction. Patient states she does not know when she began developing a fever but does report feeling very weak with increased fatigue over the past couple days. Review of systems: Pertinent positives and negatives as discussed in HPI, a complete review of systems was performed and all other systems are negative. Physical exam: Vital signs reviewed and stable. General: Nontoxic, no distress and appears stated age. Thin build. Derm: Skin warm and dry, normal coloration for ethnicity. Healing wound right lower dominguez no signs of surrounding erythema or drainage. Head: Atraumatic, normocephalic and symmetric. Eyes: EOMs intact, no lid lag, and anicteric sclera Mouth: no lip lesions, mucus membranes moist Cardiovascular: Irregularly irregular rhythm, positive posterior tibial pulses bilaterally, and cap refill < 2 seconds. Lungs: Respirations even, regular, and unlabored on or liters O2 via nasal cannula with SpO2 96%. Lungs diminished, soft expiratory wheezes present, no rhonchi/rales or crackles noted. No accessory muscle usage. Abdominal: soft, nontender to palpation, no guarding, no appreciable organomegaly Ext: ROM intact. No gross muscle atrophy, no edema, no contractures Neuro: Speech clear, face symmetrical and CN II-XII grossly intact with no noted focal neuro deficits Psych: Alert and oriented to person, place, time, and situation. Appropriate and pleasant affect. Assessment and Plan of Care: New-onset A. fib RVR Elevated troponin -Cardiology consulted -Echocardiogram -Trend troponins -Continue anticoagulation with heparin infusion -Cardizem bolus followed by Cardizem infusion -Continuous telemetry monitoring -Aspirin 324 mg by mouth 1 dose followed by 81 mg daily. -Continuation of atorvastatin amlodipine, and metoprolol. Community-acquired pneumonia Leukocytosis Advanced COPD home oxygen dependent -Oxygenation to be administered and titrated as needed to maintain SPO2 equal to or greater than 92% -Telemetry monitoring. -Pulse-oximetry -Duonebs as needed for SOB and/or wheezing -Incentive Spirometry -Steroids: Prednisone -Antibiotics: Rocephin and azithromycin -Sputum culture -Pulmonology consulted secondary to patient with pneumonia and history of advanced COPD home oxygen dependent. Hypokalemia -Replaced, continue to monitor with repeat a.m. labs. Hypertension -Monitor vital signs and continue daily medication regimen with amlodipine and metoprolol.. Hyperlipidemia -Continue daily medication regimen with atorvastatin Chronic healing wound to right lower extremity -Wound care consult for dressing changes The patient is admitted with an anticipated greater than 2 midnight stay for evaluation of A. fib RVR and pneumonia CODE STATUS: Full code DVT prophylaxis: Heparin infusion Discussed with: Patient and RN Anticipated discharge date: Clinical course to determine Anticipated discharge place: Home with home care A total of 45 minutes was spent on the care of this complex patient more than 50% of the time was spent in counseling and care coordination. Past Medical History Past Medical History: COPD, Hyperlipidemia, Hypertension, Osteoarthritis (OA) Additional Past Medical History / Comment(s): Chronic hypoxic respiratory failure/home oxygen at 2L/[place] ATC, pulmonary htn, osteoporosis, vitamin D deficiency, cervical spur/bilateral hand pain/decreased ROM, colonoscopy/benign polypectomy History of Any Multi-Drug Resistant Organisms: None Reported Past Surgical History: Tonsillectomy Additional Past Surgical History / Comment(s): colonoscopy with benign polypect dm Past Anesthesia/Blood Transfusion Reactions: No Reported Reaction Past Psychological History: No Psychological Hx Reported Smoking Status: Former smoker Past Alcohol Use History: Daily Past Drug Use History: None Reported - Past Family History Father Family Medical History: Myocardial Infarction ([place]) Additional Family Medical History / Comment(s): Father lived to be 95 yrs old. Mother Additional Family Medical History / Comment(s): Mother of blood poisoning. Medications and Allergies Home Medications Medication Instructions Recorded Confirmed Type Fluticasone/Vilanterol [Breo 1 puff INHALATION RT-DAILY 09/09/17 01/04/22 History Ellipta 200-25 Mcg Inhaler] Ipratropium/Albuterol Sulfate 2 puff INHALATION RT-QID PRN 09/09/17 01/04/22 History [Combivent Respimat Inhaler] Ipratropium-Albuterol Nebulize 3 ml INHALATION RT-QID ampul.neb 09/12/17 01/04/22 Rx [Duoneb 0.5 mg-3 mg/3 ml Soln] predniSONE 5 mg PO DAILY 12/26/20 01/04/22 History Metoprolol Tartrate [Lopressor] 50 mg PO BID 30 Days #60 tab 12/28/20 01/04/22 Rx amLODIPine [Norvasc] 10 mg PO DAILY 30 Days #30 tab 12/28/20 01/04/22 Rx Atorvastatin [Lipitor] 20 mg PO HS 01/04/22 01/04/22 History Mirtazapine 7.5 mg PO HS 01/04/22 01/04/22 History Allergies Allergy/AdvReac Type Severity Reaction Status Date / Time No Known Allergies Allergy Verified 01/04/22 14:11 Physical Exam Vitals: Vital Signs Temp Pulse Resp BP Pulse Ox 01/04/22 14:50 100.4 F H 118 H 22 137/63 98 03/14/22 12:30 24 01/04/22 12:28 100.3 F H 120 H 18 144/91 97 Intake and Output 01/04/22 01/04/22 01/04/22 06:59 14:59 22:59 Other: Weight 36.287 kg Results CBC & Chem 7: 01/04/22 13:20 01/04/22 13:20 Labs: Abnormal Lab Results - Last 24 Hours (Table) 01/04/22 01/04/22 01/04/22 Range/Units 13:20 13:20 13:20 WBC 24.0 H (3.8-10.6) k/uL RBC 3.79 L (3.80-5.40) m/uL Neutrophils # 21.1 H (1.3-7.7) k/uL Potassium 3.3 L (3.5-5.1) mmol/L BUN 18 H (7-17) mg/dL Calcium 8.0 L (8.4-10.2) mg/dL Total Bilirubin 1.5 H (0.2-1.3) mg/dL AST 39 H (14-36) U/L Alkaline Phosphatase 234 H (38-126) U/L Troponin I (0.000-0.034) ng/mL Total Protein 5.8 L (6.3-8.2) g/dL Albumin 3.2 L (3.5-5.0) g/dL Urine Protein 2+ H (Negative) Urine Blood Small H (Negative) 01/04/22 Range/Units 13:20 WBC (3.8-10.6) k/uL RBC (3.80-5.40) m/uL Neutrophils # (1.3-7.7) k/uL Potassium (3.5-5.1) mmol/L BUN (7-17) mg/dL Calcium (8.4-10.2) mg/dL Total Bilirubin (0.2-1.3) mg/dL AST (14-36) U/L Alkaline Phosphatase (38-126) U/L Troponin I 0.036 H* (0.000-0.034) ng/mL Total Protein (6.3-8.2) g/dL Albumin (3.5-5.0) g/dL Urine Protein (Negative) Urine Blood (Negative) <Jennifer Munguia - Last Filed: 01/05/22 18:48> History of Present Illness I reviewed the documentation as provided by the OSIRIS above, who is the original author of this note. I agree with the documented assessment and plan, with the following changes: None Physical Exam Osteopathic Statement: *. No significant issues noted on an osteopathic structural exam other than those noted in the History and Physical/Consult. Vitals: Vital Signs Temp Pulse Resp BP Pulse Ox 01/05/22 16:28 82 01/05/22 16:12 78 01/05/22 15:12 74 26 H 96/52 97 01/05/22 14:30 75 24 112/64 95 01/05/22 12:33 140 H 26 H 122/67 95 01/05/22 09:08 165 H 28 H 125/74 95 01/05/22 08:45 133 H 22 01/05/22 08:36 115 H 22 01/05/22 07:45 107 H 18 106/67 98 01/05/22 05:00 135 H 26 H 133/73 97 01/05/22 04:00 111 H 22 132/72 97 01/05/22 01:00 88 24 113/77 96 01/05/22 00:00 112 H 28 H 117/67 95 01/04/22 22:48 117 H 18 116/54 99 01/04/22 20:00 99.0 F 104 H 18 122/60 99 01/04/22 19:51 96 01/04/22 19:38 93 Intake and Output 01/05/22 01/05/22 01/05/22 06:59 14:59 22:59 Intake Total 60 31 Balance 60 31 Intake: Intake, IV Titration 60 31 Amount Diltiazem 125 mg In 60 31 Sodium Chloride 0.9% 100 ml @ 5 MG/HR 5 mls/hr IV .Q24H [facility] Rx#:[id number] Other: Weight 36.287 kg Results CBC & Chem 7: 01/05/22 04:37 01/05/22 04:37 Labs: Abnormal Lab Results - Last 24 Hours (Table) 01/04/22 01/05/22 01/05/22 Range/Units 21:57 04:37 04:37 WBC 22.2 H (3.8-10.6) k/uL RBC 3.66 L (3.80-5.40) m/uL Neutrophils # 18.9 H (1.3-7.7) k/uL APTT 55.7 H (22.0-30.0) sec Potassium 3.2 L (3.5-5.1) mmol/L BUN 22 H (7-17) mg/dL Calcium 7.5 L (8.4-10.2) mg/dL Magnesium 1.2 L (1.6-2.3) mg/dL Alkaline Phosphatase 191 H (38-126) U/L Total Protein 5.4 L (6.3-8.2) g/dL Albumin 2.8 L (3.5-5.0) g/dL HDL Cholesterol 107.00 H (40.00-60.00) mg/dL 01/05/22 01/05/22 Range/Units 04:37 06:39 WBC (3.8-10.6) k/uL RBC (3.80-5.40) m/uL Neutrophils # (1.3-7.7) k/uL APTT 48.4 H 49.6 H (22.0-30.0) sec Potassium (3.5-5.1) mmol/L BUN (7-17) mg/dL Calcium (8.4-10.2) mg/dL Magnesium (1.6-2.3) mg/dL Alkaline Phosphatase (38-126) U/L Total Protein (6.3-8.2) g/dL Albumin (3.5-5.0) g/dL HDL Cholesterol (40.00-60.00) mg/dL Microbiology - Last 24 Hours (Table) 01/04/22 13:20 Blood Culture Gram Stain - Preliminary Blood 01/04/22 13:05 Blood Culture Gram Stain - Preliminary Blood 01/04/22 13:20 Blood Culture - Final Blood 01/04/22 13:05 Blood Culture - Final Blood
[2022-01-04] MEDS: IPRATROPIUM-ALBUTEROL 3 ML NEB INHALATION SCH (19:36)
[2022-01-04] MEDS: ATORVASTATIN 20 MG TAB PO SCH (22:48)
[2022-01-04] MEDS: METOPROLOL TARTRATE 50 MG TAB PO SCH (22:48)
[2022-01-05] MEDS: MIRTAZAPINE 15 MG TAB PO SCH ×2 (00:03→20:51)
[2022-01-05 05:10] LABS: Basophils # (A) 0.1 k/uL (0-0.2); Basophils % (A) 0 %; Eosinophils # (A) 0.1 k/uL (0-0.7); Eosinophils % (A) 0 %; HCT 35.8 % (34.0-46.0); HGB 11.5 gm/dL (11.4-16.0); Lymphocytes # (A) 2.1 k/uL (1.0-4.8); Lymphocytes % (A) 10 %; MCH 31.3 pg (25.0-35.0); MCV 97.8 fL (80.0-100.0); Mean Platelet Volume 9.9; Monocytes # (A) 0.8 k/uL (0-1.0); Monocytes % (A) 4 %; Neutrophils # (A) 18.9 k/uL (1.3-7.7); Neutrophils % (A) 85 %; Platelet Count 265 k/uL (150-450); RBC 3.66 m/uL (3.80-5.40); RDW 14.3 % (11.5-15.5); WBC 22.2 k/uL (3.8-10.6)
[2022-01-05 05:16] LABS: ALT 26 U/L (4-34); AST 32 U/L (14-36); African American GFR (CKD) 87 (>60 ml/min/1.73 sqM); Albumin 2.8 g/dL (3.5-5.0); Alkaline Phosphatase 191 U/L (38-126); Anion Gap 7 mmol/L; Blood Urea Nitrogen 22 mg/dL (7-17); Calcium 7.5 mg/dL (8.4-10.2); Carbon Dioxide 27 mmol/L (22-30); Chloride 105 mmol/L (98-107); Glucose 88 mg/dL (74-99); Magnesium 1.2 mg/dL (1.6-2.3); Non-African American GFR(CKD) 76 (>60 ml/min/1.73 sqM); Potassium 3.2 mmol/L (3.5-5.1); Sodium 139 mmol/L (137-145); Total Bilirubin 0.9 mg/dL (0.2-1.3); Total Protein 5.4 g/dL (6.3-8.2)
--- NOTE | 2022-01-05 07:39 | XR ---
EXAMINATION TYPE: XR chest 1V DATE OF EXAM: 01/05/2022 COMPARISON: 01/04/2022 HISTORY: 86-year-old female pneumonia TECHNIQUE: Single frontal view of the chest is obtained. FINDINGS: Heart upper limits of normal in size atherosclerotic calcifications. Prominent curvilinear skinfold p rojecting in the right upper lobe. Worsening focal left mid and lower lung opacity. Possible trace le ft effusion. The patient's chin obscures the medial apices. IMPRESSION: 1. Borderline heart size and COPD. 2. Worsening airspace disease left mid and lower lung. Possible trace left effusion.
[2022-01-05] MEDS ORDERED: POTASSIUM CHLORIDE ER 20 MEQ TAB.ER PO STA (08:02)
[2022-01-05] MEDS: SYMBICORT 160-4.5 MCG INHALER INHALATION SCH ×2 (08:35→20:11)
[2022-01-05] MEDS: IPRATROPIUM-ALBUTEROL 3 ML NEB INHALATION SCH ×4 (08:35→20:11)
[2022-01-05] MEDS: predniSONE 20 MG TAB PO SCH (09:00)
[2022-01-05] MEDS ORDERED: AZITHROMYCIN 500 MG TAB PO SCH (09:00)
[2022-01-05] MEDS ORDERED: ASPIRIN 81 MG PO SCH (09:00)
[2022-01-05] MEDS: amLODIPine 10 MG TAB PO SCH (09:01)
[2022-01-05] MEDS: METOPROLOL TARTRATE 50 MG TAB PO SCH ×2 (09:02→20:51)
[2022-01-05] MEDS: SODIUM CHLORIDE 0.9% 1,000 ML IV SCH ×2 (09:02→20:51)
[2022-01-05] MEDS: MAGNESIUM SULFATE-D5W PMX 1 GM in DEXTROSE/WATER 1 100ML.BAG IVPB SCH ×4 (09:05→17:28)
[2022-01-05 09:11] LABS: Chol/HDL Ratio 1.51 Ratio; LDL Cholesterol,Calculated 33.4 mg/dL (0.0-131.0)
[2022-01-05] MEDS: DILTIAZEM ORAL 60 MG TAB PO SCH ×3 (10:12→20:51)
--- NOTE | 2022-01-05 10:48 | P.CNPUL ---
History of Present Illness History of present illness: 86-year-old female patient with known history of COPD with an FEV1 of 62% of predicted and diffusion capacity of 36% of predicted maintained on home O2 and maintain also on Breo one inhalation a day in addition to Combivent rescue inhaler on an as-needed basis, followed up in our office regarding her chronic COPD. The patient also has multiple other medical problems and comorbidities in cluding chronic atrial fibrillation and hyperlipidemia and osteoarthritis and hypertension. Her last evaluation with us in the office was in July 2021. The patient came into the emergency department yesterday for multiple complaints. She was feeling weak, she was feeling terrible. She was having back pain. And the patient was also having fever and tachycardia. Her home care nurse while wrapping her legs noticed that the patient was having some fever and tachycardia. Infection was obviously a concern. The patient denied having any shortness of breath above and beyond her baseline. She denied having any chest pain or palpitations. No nausea. No vomiting. No diarrhea. No abdominal pain. No dysuria frequency or urgency. In the ED, the patient was found to have a fever of 100.4, tachycardic with a heart rate of 118 irregular consistent with atrial fibrillation. BP was adequate and the patient's pulse ox was 98% on 2 L of oxygen by nasal cannula. Chest x-ray was concerning for left lower lobe pneumonia . White cell count is at 24.0 with a hemoglobin of 11.7 and the patient also has a platelet count of 265. The sodium is at 139 with a potassium level of 3.2, BUN is at 22 with a creatinine of 0.7, troponin times. Been negative at 0.03, her alkaline phosphatase was 191, AST was 32, ALT was 26, electrolytes show a potassium level of 3.2, and the influenza screen was negative, COVID 19 testing was negative Review of Systems Constitutional: Reports fatigue, Reports weakness Eyes: denies as per HPI, denies blurred vision, denies bulging eye, denies decreased vision, denies diplopia, denies discharge, denies dry eye, denies irritation, denies itching, denies pain, denies photophobia, denies loss of peripheral vision, denies loss of vision, denies tunnel vision/blind spots Ears: deny: decreased hearing, ear discharge, earache, tinnitus Ears, nose, mouth and throat: Reports as per HPI Breasts: absent: as per HPI, change in shape, gynecomastia, masses, nipple discharge, pain, skin changes, swelling Cardiovascular: Reports decreased exercise tolerance, Reports dyspnea on exertion Respiratory: Reports dyspnea, Reports home oxygen Gastrointestinal: Reports constipation Genitourinary: Reports as per HPI Menstruation: Reports as per HPI Musculoskeletal: Reports low back pain Musculoskeletal: absent: ankle pain, ankle stiffness, ankle swelling Integumentary: Reports as per HPI Neurological: Reports as per HPI Psychiatric: Reports as per HPI Endocrine: Reports as per HPI Hematologic/Lymphatic: Reports as per HPI Allergic/Immunologic: Reports as per HPI Past Medical History Past Medical History: COPD, Hyperlipidemia, Hypertension, Osteoarthritis (OA) Additional Past Medical History / Comment(s): Chronic hypoxic respiratory failure/home oxygen at 2L/[place] ATC, pulmonary htn, osteoporosis, vitamin D deficiency, cervical spur/bilateral hand pain/decreased ROM, colonoscopy/benign polypectomy History of Any Multi-Drug Resistant Organisms: None Reported Past Surgical History: Tonsillectomy Additional Past Surgical History / Comment(s): colonoscopy with benign polypectomy Past Anesthesia/Blood Transfusion Reactions: No Reported Reaction Past Psychological History: No Psychological Hx Reported Smoking Status: Former smoker Past Alcohol Use History: Daily Past Drug Use History: None Reported - Past Family History Father Family Medical History: Myocardial Infarction ([place]) Additional Family Medical History / Comment(s): Father lived to be 95 yrs old. Mother Additional Family Medical History / Comment(s): Mother of blood poisoning. Medications and Allergies Home Medications Medication Instructions Recorded Confirmed Type Fluticasone/Vilanterol [Breo 1 puff INHALATION RT-DAILY 09/09/17 01/04/22 History Ellipta 200-25 Mcg Inhaler] Ipratropium/Albuterol Sulfate 2 puff INHALATION RT-QID PRN 09/09/17 01/04/22 History [Combivent Respimat Inhaler] Ipratropium-Albuterol Nebulize 3 ml INHALATION RT-QID ampul.neb 09/12/17 01/04/22 Rx [Duoneb 0.5 mg-3 mg/3 ml Soln] predniSONE 5 mg PO DAILY 12/26/20 01/04/22 History Metoprolol Tartrate [Lopressor] 50 mg PO BID 30 Days #60 tab 12/28/20 01/04/22 Rx amLODIPine [Norvasc] 10 mg PO DAILY 30 Days #30 tab 12/28/20 01/04/22 Rx Atorvastatin [Lipitor] 20 mg PO HS 01/04/22 01/04/22 History Mirtazapine 7.5 mg PO HS 01/04/22 01/04/22 History Allergies Allergy/AdvReac Type Severity Reaction Status Date / Time No Known Allergies Allergy Verified 01/04/22 14:11 Physical Exam Vitals: Vital Signs Temp Pulse Resp BP Pulse Ox 01/05/22 09:08 165 H 28 H 125/74 95 01/05/22 08:45 133 H 22 01/05/22 08:36 115 H 22 01/05/22 07:45 107 H 18 106/67 98 01/05/22 05:00 135 H 26 H 133/73 97 01/05/22 04:00 111 H 22 132/72 97 01/05/22 01:00 88 24 113/77 96 01/05/22 00:00 112 H 28 H 117/67 95 01/04/22 22:48 117 H 18 116/54 99 01/04/22 20:00 99.0 F 104 H 18 122/60 99 01/04/22 19:51 96 01/04/22 19:38 93 01/04/22 17:50 106 H 18 116/54 97 01/04/22 14:50 100.4 F H 118 H 22 137/63 98 01/04/22 12:30 24 01/04/22 12:28 100.3 F H 120 H 18 144/91 97 Intake and Output 01/04/22 01/05/22 01/05/22 22:59 06:59 14:59 Intake Total 60 31 Balance 60 31 Intake: Intake, IV Titration 60 31 Amount Diltiazem 125 mg In 60 31 Sodium Chloride 0.9% 100 ml @ 5 MG/HR 5 mls/hr IV .Q24H [facility] Rx#:[id number] General: Nontoxic, no distress and appears stated age. Thin build. The patient is currently on 2 L 02 by nasal cannula. Breathing is nonlabored at this point in time. Derm: Skin warm and dry, normal coloration for ethnicity. Healing wound right lower dominguez no signs of surrounding erythema or drainage. Head: Atraumatic, normocephalic and symmetric. Eyes: EOMs intact, no lid lag, and anicteric sclera Mouth: no lip lesions, mucus membranes moist Cardiovascular: Irregularly irregular rhythm, positive posterior tibial pulses bilaterally, and cap refill < 2 seconds. Lungs: Patient has diminished breath sounds especially left lung base along with some crackles in the left lower lung area. Overall breath sounds are diminished and the patient is scattered expiratory wheeze. The patient has thoracic scoliosis clearly seen on examination. She is not using excessive muscle breathing and she is currently calm and comfortable on 2 L. Abdominal: soft, nontender to palpation, no guarding, no appreciable organomegaly Ext: ROM intact. No gross muscle atrophy, no edema, no contractures Neuro: Speech clear, face symmetrical and CN II-XII grossly intact with no noted focal neuro deficits Psych: Alert and oriented to person, place, time, and situation. Appropriate and pleasant affect. Eliquis Results - Laboratory Findings CBC and BMP: 01/05/22 04:37 01/05/22 04:37 PT/INR, D-dimer PT 11.2 sec (9.0-12.0) 01/04/22 13:20 INR 1.0 (<1.2) 01/04/22 13:20 Abnormal lab findings: Abnormal Labs 01/04/22 01/04/22 01/04/22 13:20 13:20 13:20 WBC 24.0 H RBC 3.79 L Neutrophils # 21.1 H APTT Potassium 3.3 L BUN 18 H Calcium 8.0 L Magnesium Total Bilirubin 1.5 H AST 39 H Alkaline Phosphatase 234 H Troponin I Total Protein 5.8 L Albumin 3.2 L HDL Cholesterol Urine Protein 2+ H Urine Blood Small H 01/04/22 01/04/22 01/05/22 13:20 21:57 04:37 WBC 22.2 H RBC 3.66 L Neutrophils # 18.9 H APTT 55.7 H Potassium BUN Calcium Magnesium Total Bilirubin AST Alkaline Phosphatase Troponin I 0.036 H* Total Protein Albumin HDL Cholesterol Urine Protein Urine Blood 01/05/22 01/05/22 01/05/22 04:37 04:37 06:39 WBC RBC Neutrophils # APTT 48.4 H 49.6 H Potassium 3.2 L BUN 22 H Calcium 7.5 L Magnesium 1.2 L Total Bilirubin AST Alkaline Phosphatase 191 H Troponin I Total Protein 5.4 L Albumin 2.8 L HDL Cholesterol 107.00 H Urine Protein Urine Blood - Diagnostic Findings Chest x-ray: image reviewed Assessment and Plan Plan: 1 acute left lower lobe pneumonia and the patient has dense consolidation of the left lower lobe, started on broad-spectrum antibiotics including a combination of Rocephin and Zithromax 2 acute hypoxic respiratory failure currently on O2 at 2 L per minute nasal cannula 3 COPD moderate to severe with an FEV1 of 62% of predicted, chronic, maintained on prednisone 5 mg on a daily basis of an outpatient basis and addition to O2 4 new onset A. fib with RVR, rate is quite tachycardic still and cardiology is on the case. The patient was given oral Cardizem for rate control 60 mg by mouth 3 times a day and the patient was taken off the Cardizem drip. The patient is also on IV heparin for now 5 acute leukocytosis secondary to above 6 hyperlipidemia 7 hypertension 8 healing wound in the right lower extremity 9 thoracic scoliosis/kyphosi Plan Obtain a pro-calcitonin level ProBNP level Sputum Gram stain and culture Blood culture Continue Rocephin and Zithromax 2-D echocardiogram IV heparin Management of atrial fibrillation per cardiology. The patient was taken off the Cardizem the rhythm patient was placed on oral Cardizem. Resume all medications Repeat chest x-ray with next 24-48 hours Increase the prednisone dose up to 40 mg on a daily basis for now as the patient has been chronically steroid dependent With the patient DuoNeb nebulized treatments around the clock 4 times a day Continue to follow
--- NOTE | 2022-01-05 10:59 | P.CONS ---
History of Present Illness - Reason for Consult Consult date: 01/05/22 wound care - History of Present Illness This is a 86-year-old patient known to the wound care center with a nonhealing ulceration to the right lateral lower extremity. At this time the ulceration is epithelialized. No need for any dressings. A Tubigrip has been placed to protect the area. Discussed with patient she'll be discharged from the wound care center since she is healed. Patient was agreeable. Review Of Systems: Constitutional: No fever, no chills, no night sweats. No weight change. No weakness, fatigue or lethargy. No daytime sleepiness. Integumentary:reports wounds, no lesions. No rash or pruritus. No unusual bruising. No change in hair or nails. Physical exam: General Appearance: Alert, cooperative, no distress, appears stated age. Skin: See HPI all other Skin color, texture, tugor normal, no rashes or lesions. Neurologic: Alert oriented x3 Assessment: 1. 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 Plan: 1. Ulceration is epithelialized. No need for any dressings. We'll utilize Tubigrip to protect the area. Thank you for the consultation any questions this contact the wound care center DNP note has been reviewed and discussed with Dr. Pompa and the impression and plan of care has been directed as dictated. Past Medical History Past Medical History: COPD, Hyperlipidemia, Hypertension, Osteoarthritis (OA) Additional Past Medical History / Comment(s): Chronic hypoxic respiratory failure/home oxygen at 2L/NC ATC, pulmonary htn, osteoporosis, vitamin D deficiency, cervical spur/bilateral hand pain/decreased ROM, colonoscopy/benign polypectomy History of Any Multi-Drug Resistant Organisms: None Reported Past Surgical History: Tonsillectomy Additional Past Surgical History / Comment(s): colonoscopy with benign polypectomy Past Anesthesia/Blood Transfusion Reactions: No Reported Reaction Past Psychological History: No Psychological Hx Reported Smoking Status: Former smoker Past Alcohol Use History: Daily Past Drug Use History: None Reported - Past Family History Father Family Medical History: Myocardial Infarction ([place]) Additional Family Medical History / Comment(s): Father lived to be 95 yrs old. Mother Additional Family Medical History / Comment(s): Mother of blood poisoning. Medications and Allergies Home Medications Medication Instructions Recorded Confirmed Type Fluticasone/Vilanterol [Breo 1 puff INHALATION RT-DAILY 09/09/17 01/04/22 History Ellipta 200-25 Mcg Inhaler] Ipratropium/Albuterol Sulfate 2 puff INHALATION RT-QID PRN 09/09/17 01/04/22 History [Combivent Respimat Inhaler] Ipratropium-Albuterol Nebulize 3 ml INHALATION RT-QID ampul.neb 09/12/17 Rx [Duoneb 0.5 mg-3 mg/3 ml Soln] predniSONE 5 mg PO DAILY 12/26/20 01/04/22 History Metoprolol Tartrate [Lopressor] 50 mg PO BID 30 Days #60 tab 12/28/20 01/04/22 Rx amLODIPine [Norvasc] 10 mg PO DAILY 30 Days #30 tab 12/28/20 01/04/22 Rx Atorvastatin [Lipitor] 20 mg PO HS 01/04/22 01/04/22 History Mirtazapine 7.5 mg PO HS 01/04/22 01/04/22 History Allergies Allergy/AdvReac Type Severity Reaction Status Date / Time No Known Allergies Allergy Verified 01/04/22 14:11 Physical Exam Vitals: Vital Signs Temp Pulse Resp BP Pulse Ox 01/05/22 09:08 165 H 28 H 125/74 95 01/05/22 08:45 133 H 22 01/05/22 08:36 115 H 22 01/05/22 07:45 107 H 18 106/67 98 01/05/22 05:00 135 H 26 H 133/73 97 01/05/22 04:00 111 H 22 132/72 97 01/05/22 01:00 88 24 113/77 96 01/05/22 00:00 112 H 28 H 117/67 95 01/04/22 22:48 117 H 18 116/54 99 01/04/22 20:00 99.0 F 104 H 18 122/60 99 01/04/22 19:51 96 01/04/22 19:38 93 01/04/22 17:50 106 H 18 116/54 97 01/04/22 14:50 100.4 F H 118 H 22 137/63 98 01/04/22 12:30 24 01/04/22 12:28 100.3 F H 120 H 18 144/91 97 Intake and Output 01/04/22 01/05/22 01/05/22 22:59 06:59 14:59 Intake Total 60 31 Balance 60 31 Intake: Intake, IV Titration 60 31 Amount Diltiazem 125 mg In 60 31 Sodium Chloride 0.9% 100 ml @ 5 MG/HR 5 mls/hr IV .Q24H [facility] Rx#:[id number] Results CBC & Chem 7: 01/05/22 04:37 01/05/22 04:37 Labs: Abnormal Lab Results - Last 24 Hours (Table) 01/04/22 01/04/22 01/04/22 Range/Units 13:20 13:20 13:20 WBC 24.0 H (3.8-10.6) k/uL RBC 3.79 L (3.80-5.40) m/uL Neutrophils # 21.1 H (1.3-7.7) k/uL APTT (22.0-30.0) sec Potassium 3.3 L (3.5-5.1) mmol/L BUN 18 H (7-17) mg/dL Calcium 8.0 L (8.4-10.2) mg/dL Magnesium (1.6-2.3) mg/dL Total Bilirubin 1.5 H (0.2-1.3) mg/dL AST 39 H (14-36) U/L Alkaline Phosphatase 234 H (38-126) U/L Troponin I (0.000-0.034) ng/mL Total Protein 5.8 L (6.3-8.2) g/dL Albumin 3.2 L (3.5-5.0) g/dL HDL Cholesterol (40.00-60.00) mg/dL Urine Protein 2+ H (Negative) Urine Blood Small H (Negative) 01/04/22 01/04/22 01/05/22 Range/Units 13:20 21:57 04:37 WBC 22.2 H (3.8-10.6) k/uL RBC 3.66 L (3.80-5.40) m/uL Neutrophils # 18.9 H (1.3-7.7) k/uL APTT 55.7 H (22.0-30.0) sec Potassium (3.5-5.1) mmol/L BUN (7-17) mg/dL Calcium (8.4-10.2) mg/dL Magnesium (1.6-2.3) mg/dL Total Bilirubin (0.2-1.3) mg/dL AST (14-36) U/L Alkaline Phosphatase (38-126) U/L Troponin I 0.036 H* (0.000-0.034) ng/mL Total Protein (6.3-8.2) g/dL Albumin (3.5-5.0) g/dL HDL Cholesterol (40.00-60.00) mg/dL Urine Protein (Negative) Urine Blood (Negative) 01/05/22 01/05/22 01/05/22 Range/Units 04:37 04:37 06:39 WBC (3.8-10.6) k/uL RBC (3.80-5.40) m/uL Neutrophils # (1.3-7.7) k/uL APTT 48.4 H 49.6 H (22.0-30.0) sec Potassium 3.2 L (3.5-5.1) mmol/L BUN 22 H (7-17) mg/dL Calcium 7.5 L (8.4-10.2) mg/dL Magnesium 1.2 L (1.6-2.3) mg/dL Total Bilirubin (0.2-1.3) mg/dL AST (14-36) U/L Alkaline Phosphatase 191 H (38-126) U/L Troponin I (0.000-0.034) ng/mL Total Protein 5.4 L (6.3-8.2) g/dL Albumin 2.8 L (3.5-5.0) g/dL HDL Cholesterol 107.00 H (40.00-60.00) mg/dL Urine Protein (Negative) Urine Blood (Negative) Assessment and Plan (1) Non-pressure chronic ulcer of other part of right lower leg limited to breakdown of skin Current Visit: Yes Status: Acute Code(s): L97.811 - NON-PRS CHR ULCER OTH PRT R LOW LEG LIMITED TO BRKDWN SKIN SNOMED Code(s): 03988673978570150
--- NOTE | 2022-01-05 13:31 | P.CRDCN ---
History of Present Illness History of present illness: HISTORY OF PRESENTING ILLNESS This is a pleasant 86-year-old female past medical history significant for chronic kidney disease, COPD, hyperlipidemia, hypertension. She follows in the office with Dr. López. We have been asked to see in consultation for atrial fibrillation/tachycardia. Patient presents to the emergency department with symptoms of fever, cough, chills, generalized weakness. Her symptoms started about one week ago. Home care nurse by wrapping the patient's legs noted the patient to be febrile and tachycardic. Recommended the patient be evaluated in the emergency department. Patient denies any palpitations, chest pain,lightheadedness , dizziness, syncope or near syncope, orthopnea or PND. On exam patient found to be in multifocal atrial tachycardia, there was concern for atrial fibrillation is a patient was started on IV heparin drip and IV Cardizem drip. DIAGNOSTICS EKG reveals atrial tachycardia, heart rate in the 130s. Repeat EKG also reveals atrial tachycardia with heart rate in the 130s. No atrial fibrillation. Telemetry tracings indicate atrial tachycardia with heart rate [id number] Chest xray revealed left lower lobe pneumonia Laboratory reviewed, WBC 22.2, hemoglobin 11.5, platelets 265, sodium 139, potassium 3.2, BUN 22, serum Ronnell 0.7, troponin 0.03, negative 2, proBNP 3790 Current home medications include atorvastatin 20 mg nightly, amlodipine 10 mg daily, metoprolol titrate 50 mg twice a day Most recent echocardiogram 11/26/2020 revealed EF 55%, mild mitral regurgitation, mild tricuspid regurgitation Lexiscan stress test in 12/2016 revealed no evidence of stress-induced ischemia REVIEW OF SYSTEMS At the time of my exam: CONSTITUTIONAL: + fever +chills. CARDIOVASCULAR: Denies chest pain, +shortness of breath, Denies orthopnea, PND or palpitations. RESPIRATORY: +cough. GASTROINTESTINAL: Denies abdominal pain, diarrhea, constipation, nausea or vomiting. MUSCULOSKELETAL: Denies myalgias. NEUROLOGIC: Denies numbness, tingling, headacbe or weakness. ENDOCRINE: Denies fatigue, weight change, polydipsia or polyurina. GENITOURINARY: Denies burning, hematuria or urgency with micturation. HEMATOLOGIC: Denies history of anemia or bleeding. PHYSICAL EXAMINATION Vitals reviewed CONSTITUTIONAL: No apparent distress. HEENT: Head is normocephalic. Pupils are equal, round. Sclerae anicteric. Mucous membranes of the mouth are moist. No JVD. No carotid bruit. CHEST EXAMINATION: Lungs are clear to auscultation. No chest wall tenderness is noted on palpation or with deep breathing. HEART EXAMINATION: Tachycardic, irregular rate and rhythm. S1, S2 heard. No murmurs, gallops or rub. ABDOMEN: Soft, nontender. Positive bowel sounds. EXTREMITIES: 2+ peripheral pulses, no lower extremity edema and no calf tenderness. NEUROLOGIC EXAMINATION: Patient is awake, alert and oriented x3. ASSESSMENT Multifocal atrial tachycardia Left lower lobe pneumonia COPD Chronic kidney disease Hyperlipidemia Hypertension Healing wound in the right lower extremity PLAN Stop IV heparin, patient in atrial tachycardia not a fib Stop IV Cardizem and start PO Cardizem, monitor patient's rates Obtain 2D echocardiogram and doppler study to assess cardiac structure and function. Continue home amlodipine, statin and metoprolol Further recommendations based on clinical course Nurse practitioner note has been reviewed by physician. Signing provider agrees with the documented findings, assessment, and plan of care. Past Medical History Past Medical History: COPD, Hyperlipidemia, Hypertension, Osteoarthritis (OA) Additional Past Medical History / Comment(s): Chronic hypoxic respiratory failure/home oxygen at 2L/NC ATC, pulmonary htn, osteoporosis, vitamin D deficiency, cervical spur/bilateral hand pain/decreased ROM, colonoscopy/benign polypectomy History of Any Multi-Drug Resistant Organisms: None Reported Past Surgical History: Tonsillectomy Additional Past Surgical History / Comment(s): colonoscopy with benign polypectomy Past Anesthesia/Blood Transfusion Reactions: No Reported Reaction Past Psychological History: No Psychological Hx Reported Smoking Status: Former smoker Past Alcohol Use History: Daily Past Drug Use History: None Reported - Past Family History Father Family Medical History: Myocardial Infarction ([place]) Additional Family Medical History / Comment(s): Father lived to be 95 yrs old. Mother Additional Family Medical History / Comment(s): Mother of blood poisoning. Medications and Allergies Home Medications Medication Instructions Recorded Confirmed Type Fluticasone/Vilanterol [Breo 1 puff INHALATION RT-DAILY 09/09/17 01/04/22 History Ellipta 200-25 Mcg Inhaler] Ipratropium/Albuterol Sulfate 2 puff INHALATION RT-QID PRN 09/09/17 01/04/22 History [Combivent Respimat Inhaler] Ipratropium-Albuterol Nebulize 3 ml INHALATION RT-QID ampul.neb 09/12/1712/22 Rx [Duoneb 0.5 mg-3 mg/3 ml Soln] predniSONE 5 mg PO DAILY 12/26/20 01/04/22 History Metoprolol Tartrate [Lopressor] 50 mg PO BID 30 Days #60 tab 12/28/20 01/04/22 Rx amLODIPine [Norvasc] 10 mg PO DAILY 30 Days #30 tab 12/28/20 01/04/22 Rx Atorvastatin [Lipitor] 20 mg PO HS 01/04/22 01/04/22 History Mirtazapine 7.5 mg PO HS 01/04/22 01/04/22 History Allergies Allergy/AdvReac Type Severity Reaction Status Date / Time No Known Allergies Allergy Verified 01/04/22 14:11 Physical Exam Vitals: Vital Signs Temp Pulse Resp BP Pulse Ox 01/05/22 08:36 115 H 22 01/05/22 07:45 107 H 18 106/67 98 01/05/22 05:00 135 H 26 H 133/73 97 01/05/22 04:00 111 H 22 132/72 97 01/05/22 01:00 88 24 113/77 96 01/05/22 00:00 112 H 28 H 117/67 95 01/04/22 22:48 117 H 18 116/54 99 01/04/22 20:00 99.0 F 104 H 18 122/60 99 01/04/22 19:51 96 01/04/22 19:38 93 01/04/22 17:50 106 H 18 116/54 97 01/04/22 14:50 100.4 F H 118 H 22 137/63 98 01/04/22 12:30 24 01/04/22 12:28 100.3 F H 120 H 18 144/91 97 Intake and Output 01/04/22 01/05/22 01/05/22 22:59 06:59 14:59 Intake Total 60 Balance 60 Intake: Intake, IV Titration 60 Amount Diltiazem 125 mg In 60 Sodium Chloride 0.9% 100 ml @ 5 MG/HR 5 mls/hr IV .Q24H [facility] Rx#:[id number] Results 01/05/22 04:37 01/05/22 04:37 Cardiac Enzymes 01/04/22 01/04/22 01/04/22 Range/Units 13:20 13:20 18:16 AST 39 H (14-36) U/L Troponin I 0.036 H* 0.034 (0.000-0.034) ng/mL 01/04/22 01/05/22 Range/Units 21:57 04:37 AST 32 (14-36) U/L Troponin I 0.031 (0.000-0.034) ng/mL Coagulation 01/04/22 01/04/22 01/05/22 Range/Units 13:20 21:57 04:37 PT 11.2 (9.0-12.0) sec APTT 25.9 55.7 H 48.4 H (22.0-30.0) sec 01/05/22 Range/Units 06:39 PT (9.0-12.0) sec APTT 49.6 H (22.0-30.0) sec CBC 01/04/22 01/05/22 Range/Units 13:20 04:37 WBC 24.0 H 22.2 H (3.8-10.6) k/uL RBC 3.79 L 3.66 L (3.80-5.40) m/uL Hgb 11.7 11.5 (11.4-16.0) gm/dL Hct 35.3 35.8 (34.0-46.0) % Plt Count 200 265 (150-450) k/uL Comprehensive Metabolic Panel 01/04/22 01/05/22 Range/Units 13:20 04:37 Sodium 138 139 (137-145) mmol/L Potassium 3.3 L 3.2 L (3.5-5.1) mmol/L Chloride 100 105 (98-107) mmol/L Carbon Dioxide 29 27 (22-30) mmol/L BUN 18 H 22 H (7-17) mg/dL Creatinine 0.75 0.73 (0.52-1.04) mg/dL Glucose 81 88 (74-99) mg/dL Calcium 8.0 L 7.5 L (8.4-10.2) mg/dL AST 39 H 32 (14-36) U/L ALT 32 26 (4-34) U/L Alkaline Phosphatase 234 H 191 H (38-126) U/L Total Protein 5.8 L 5.4 L (6.3-8.2) g/dL Albumin 3.2 L 2.8 L (3.5-5.0) g/dL Current Medications Generic Name Dose Route Start Last Admin Trade Name Freq PRN Reason Stop Dose Admin Acetaminophen 650 mg 01/04/22 17:01 Acetaminophen Tab 325 Mg Tab PO Q6HR PRN Mild Pain or Fever > 100.5 Albuterol/Ipratropium 3 ml 01/04/22 20:00 01/05/22 08:35 Ipratropium-Albuterol 3 Ml Neb INHALATION 3 ml RT-QID REX Administration Albuterol/Ipratropium 3 ml 01/04/22 16:02 Ipratropium-Albuterol 3 Ml Neb INHALATION RT-QID PRN SHORTNESS OF BREATH Amlodipine Besylate 10 mg 01/05/22 09:00 Amlodipine 10 Mg Tab PO DAILY REX Aspirin 81 mg 01/05/22 09:00 Aspirin 81 Mg PO DAILY REX Atorvastatin Calcium 20 mg 01/04/22 21:00 01/04/22 22:48 Atorvastatin 20 Mg Tab PO 20 mg HS REX Administration Azithromycin 500 mg 01/05/22 09:00 Azithromycin 500 Mg Tab PO 01/06/22 09:01 DAILY REX Protocol Budesonide/Formoterol Fumarate 2 puff 01/05/22 08:00 01/05/22 08:35 Symbicort 160-4.5 Mcg Inhaler INHALATION 2 puff RT-BID REX Administration Ceftriaxone Sodium 2 gm/ 50 mls @ 100 mls/hr 01/05/22 09:00 Sodium Chloride IVPB 01/08/22 09:29 Q24HR REX Protocol Heparin Sodium/Sodium Chloride 250 mls @ 4.354 mls/hr 01/04/22 15:45 01/04/22 16:38 25,000 unit/ Sodium Chloride IV 12 units/kg/hr .Q24H [facility] 4.354 mls/hr Administration Protocol 12 UNITS/KG/HR Diltiazem HCl 125 mg/ Sodium 125 mls @ 5 mls/hr 01/04/22 17:15 01/05/22 05:53 Chloride IV 10 mg/hr .Q24H [facility] 10 mls/hr Infusion 5 MG/HR Magnesium Sulfate/Dextrose 1 100 mls @ 100 mls/hr 01/05/22 08:15 gm/ IV Solution IVPB 01/05/22 12:14 Q1H REX Sodium Chloride 1,000 mls @ 75 mls/hr 01/05/22 08:15 Saline 0.9% IV .[id number] REX Melatonin 3 mg 01/04/22 17:01 Melatonin 3 Mg Tablet PO HS PRN Insomnia Metoprolol Tartrate 50 mg 01/04/22 21:00 01/04/22 22:48 Metoprolol Tartrate 50 Mg Tab PO 50 mg BID REX Administration Mirtazapine 7.5 mg 01/04/22 21:00 01/05/22 00:03 Mirtazapine 15 Mg Tab PO 7.5 mg HS REX Administration Miscellaneous Information 1 each 01/04/22 15:34 Pneumonia Protocol Utilized 1 Each Misc PO ONCE PRN Per Protocol Naloxone HCl 0.2 mg 01/04/22 17:01 Naloxone 0.4 Mg/Ml 1 Ml Vial IV Q2M PRN Opioid Reversal Oxycodone/Acetaminophen 1 each 01/04/22 17:01 Oxycodone-Apap 5-325mg 1 Each Tab PO Q4HR PRN Severe Pain Prednisone 40 mg 01/05/22 09:00 Prednisone 20 Mg Tab PO 01/09/22 09:01 DAILY REX Intake and Output 01/04/22 01/05/22 01/05/22 22:59 06:59 14:59 Intake Total 60 Balance 60 Intake: Intake, IV Titration 60 Amount Diltiazem 125 mg In 60 Sodium Chloride 0.9% 100 ml @ 5 MG/HR 5 mls/hr IV .Q24H [facility] Rx#:[id number] 01/05/22 04:37 01/05/22 04:37
--- NOTE | 2022-01-05 18:45 | P.PN ---
Subjective Progress Note Date: 01/05/22 Hospital course: Patient is a very pleasant 86-year-old female with a past medical history of COPD home oxygen dependent on 2 L at all times, hypertension, and hyp erlipidemia. She presented to the emergency department with a chief complaint of fever and tachycardia. Patient has healing wound to left lower extremity and she has been under care of wound care for treatment/dressing changes. Patient reports when home care nurse evaluated her she was told that she had a fever and her heart was beating very fast. Upon arrival to the emergency department jason boucher was found to be in new onset atrial fibrillation with RVR. An EKG was completed showing A. fib RVR at 131 bpm. Chest x-ray was then completed revealing left lower lobe infiltrate and/or atelectasis along with patchy density in right parahilar region. Lab work significant for leukocytosis with WBC count of 24.0 with left shift, hypokalemia with potassium 3.3, prerenal azotemia with elevated BUN of 18, hyperbilirubinemia with bilirubin of 1.5, AST 39, an alkaline phosphatase of 234. Troponin elevated at 0.036. Patient started on IV antibiotics azithromycin and Rocephin for treatment of community- acquired pneumonia. Patient then started on heparin infusion for new onset A. fib RVR. Patient was admitted under our services with consultation to cardiology and pulmonology. Physical exam: Patient seen and fully evaluated at the bedside this morning. She reports feeling a little fatigued but otherwise denies having any complaints. Patient reports significant increase in shortness of breath with ambulation this morning but states much improved after receiving breathing treatment. She denies having any chest pain, palpitations, cough, abdominal pain, nausea, vomiting, or any other complaints at this time. Morning labs reviewed patient with significant leukocytosis with WBC count of 22.2, preliminary wound culture results reporting gram-negative rods awaiting final culture and sensitivity report. Vital signs reviewed and stable. General: Nontoxic, no distress and appears stated age. Thin build. Derm: Skin warm and dry, normal coloration for ethnicity. Healing wound right lower dominguez no signs of surrounding erythema or drainage. Head: Atraumatic, normocephalic and symmetric. Eyes: EOMs intact, no lid lag, and anicteric sclera Mouth: no lip lesions, mucus membranes moist Cardiovascular: Irregularly irregular rhythm, positive posterior tibial pulses bilaterally, and cap refill < 2 seconds. Lungs: Respirations even, regular, and unlabored on or liters O2 via nasal cannula with SpO2 96%. Lungs diminished, soft expiratory wheezes present, no rhonchi/rales or crackles noted. No accessory muscle usage. Abdominal: soft, nontender to palpation, no guarding, no appreciable organomegaly Ext: ROM intact. No gross muscle atrophy, no edema, no contractures Neuro: Speech clear, face symmetrical and CN II-XII grossly intact with no noted focal neuro deficits Psych: Alert and oriented to person, place, time, and situation. Appropriate and pleasant affect. Assessment and Plan of Care: Sepsis secondary to pneumonia vs bacteremia Community-acquired pneumonia Gram-negative bacteremia, preliminary results Pyrexia Leukocytosis -Significant leukocytosis with WBC count of 22.2, preliminary wound culture results reporting gram-negative rods awaiting final culture and sensitivity report. -Oxygenation to be administered and titrated as needed to maintain SPO2 equal to or greater than 92% -Telemetry monitoring. -Pulse-oximetry -Duonebs as needed for SOB and/or wheezing -Incentive Spirometry -Steroids: Prednisone -Antibiotics: Rocephin and azithromycin -Infectious disease consulted New-onset A. fib RVR Elevated troponin -Cardiology consulted -Echocardiogram -Trend troponins -Continue anticoagulation with heparin infusion -Cardizem bolus followed by Cardizem infusion -Continuous telemetry monitoring -Aspirin 324 mg by mouth 1 dose followed by 81 mg daily. -Continuation of atorvastatin amlodipine, and metoprolol. Advanced COPD home oxygen dependent with increased oxygenation needs -Pulmonology consulted secondary to patient with pneumonia and history of advanced COPD home oxygen dependent. -Duonebs as needed for SOB and/or wheezing -Incentive Spirometry -Steroids: Prednisone Hypomagnesemia -Replaced, we will continue to monitor with repeat a.m. labs. Hypokalemia -Replaced, continue to monitor with repeat a.m. labs. Hypertension -Monitor vital signs and continue daily medication regimen with amlodipine and metoprolol.. Hyperlipidemia -Continue daily medication regimen with atorvastatin Chronic healing wound to right lower extremity -Wound care consult for dressing changes CODE STATUS: Full code DVT prophylaxis: Heparin infusion Discussed with: Patient and RN Anticipated discharge date: Clinical course to determine Anticipated discharge place: Home with home care A total of 40 minutes was spent on the care of this complex patient more than 50% of the time was spent in counseling and care coordination. Objective - Vital Signs Vital signs: Vital Signs Temp 99.0 F 01/04/22 20:00 Pulse 107 H 01/05/22 07:45 Resp 18 01/05/22 07:45 BP 106/67 01/05/22 07:45 Pulse Ox 98 01/05/22 07:45 Intake & Output 01/04/22 01/05/22 01/05/22 18:59 06:59 18:59 Intake Total 60 Balance 60 Weight 36.287 kg Intake: Intake, IV Titration 60 Amount Diltiazem 125 mg In 60 Sodium Chloride 0.9% 100 ml @ 5 MG/HR 5 mls/hr IV .Q24H [facility] Rx#:[id number] - Labs CBC & Chem 7: 01/05/22 04:37 01/05/22 04:37 Labs: Abnormal Lab Results - Last 24 Hours (Table) 01/04/22 01/04/22 01/04/22 Range/Units 13:20 13:20 13:20 WBC 24.0 H (3.8-10.6) k/uL RBC 3.79 L (3.80-5.40) m/uL Neutrophils # 21.1 H (1.3-7.7) k/uL APTT (22.0-30.0) sec Potassium 3.3 L (3.5-5.1) mmol/L BUN 18 H (7-17) mg/dL Calcium 8.0 L (8.4-10.2) mg/dL Magnesium (1.6-2.3) mg/dL Total Bilirubin 1.5 H (0.2-1.3) mg/dL AST 39 H (14-36) U/L Alkaline Phosphatase 234 H (38-126) U/L Troponin I (0.000-0.034) ng/mL Total Protein 5.8 L (6.3-8.2) g/dL Albumin 3.2 L (3.5-5.0) g/dL Urine Protein 2+ H (Negative) Urine Blood Small H (Negative) 01/04/22 01/04/22 01/05/22 Range/Units 13:20 21:57 04:37 WBC 22.2 H (3.8-10.6) k/uL RBC 3.66 L (3.80-5.40) m/uL Neutrophils # 18.9 H (1.3-7.7) k/uL APTT 55.7 H (22.0-30.0) sec Potassium (3.5-5.1) mmol/L BUN (7-17) mg/dL Calcium (8.4-10.2) mg/dL Magnesium (1.6-2.3) mg/dL Total Bilirubin (0.2-1.3) mg/dL AST (14-36) U/L Alkaline Phosphatase (38-126) U/L Troponin I 0.036 H* (0.000-0.034) ng/mL Total Protein (6.3-8.2) g/dL Albumin (3.5-5.0) g/dL Urine Protein (Negative) Urine Blood (Negative) 01/05/22 01/05/22 01/05/22 Range/Units 04:37 04:37 06:39 WBC (3.8-10.6) k/uL RBC (3.80-5.40) m/uL Neutrophils # (1.3-7.7) k/uL APTT 48.4 H 49.6 H (22.0-30.0) sec Potassium 3.2 L (3.5-5.1) mmol/L BUN 22 H (7-17) mg/dL Calcium 7.5 L (8.4-10.2) mg/dL Magnesium 1.2 L (1.6-2.3) mg/dL Total Bilirubin (0.2-1.3) mg/dL AST (14-36) U/L Alkaline Phosphatase 191 H (38-126) U/L Troponin I (0.000-0.034) ng/mL Total Protein 5.4 L (6.3-8.2) g/dL Albumin 2.8 L (3.5-5.0) g/dL Urine Protein (Negative) Urine Blood (Negative)
[2022-01-05] MEDS: CEFEPIME 2 GM in SODIUM CHLORIDE 0.9% 100 ML IVPB SCH ×2 (19:04→22:55)
[2022-01-05] MEDS: ATORVASTATIN 20 MG TAB PO SCH (20:51)
--- NOTE | 2022-01-06 00:18 | P.CONS ---
History of Present Illness - Reason for Consult Consult date: 01/05/22 Bacteremia Requesting physician: Tu Moctezuma - Chief Complaint fever x few days - History of Present Illness History of present illness : Patient is 86-year-old female with multiple comorbidities presenting to the ER yesterday afternoon for evaluation of fever and tachycardia that was evaluated by the home care nurse and advised the patient to go to the hospital the patient was complaining of shortness of breath she also have a cough which is mild to moderate intensity but not bringing up any sputum patient denies having any chest pain has been complaining of feeling weak patient denies any abdominal pain no nausea no vomiting no diarrhea patient denies having any burning or frequency of urine with September the patient was evaluated by the ER physician on arrival to the ER the patient did have a fever 100.44 leg she was tachycardic hypoxic and need for supplemental oxygen patient did have white count 24,000 with a left shift creatinine was normal limits of the normal urine was negative Covid testing was negative patient did have a chest x-ray which shows left lower lobe infiltrate concerning for pneumonia patient has been treated with Rocephin and Zithromax blood cultures are showing gram-negative baseline infectious disease was consulted for further management of antibiotic therapy Review of system: CONSTITUTIONAL: Positive for weakness along with the fever. EYES: No complaint. ENT: No complaint. RESPIRATORY: As per history of present illness. CARDIOVASCULAR: As per history of present illness. GENITOURINARY: No complaint. GASTROINTESTINAL: No complaint. MUSCULOSKELETAL: No complaint. INTEGUMENTARY: No complaint. PSYCHOLOGIC: No complaint. ENDOCRINE: No complaint. NEUROLOGIC: No complaint. Past medical history : Reviewed, documented below Past surgical history : Reviewed, documented below Social history: Reviewed, documented below Medications: Reviewed, as documented below EXAMINATION: Vital sigans= Reviewed and documented below GENERAL DESCRIPTION: Elderly female lying in bed, no distress. No tachypnea or accessory muscle of respiration use. HEENT: Shows Pallor , no scleral icterus. Oral mucous membrane is dry. NECK: Trachea central, no thyromegaly. LUNGS: Unlabored breathing. Coarse crackle at the left base. No wheeze . HEART: S1, S2, regular rate and rhythm. ABDOMEN: Soft, no tenderness , guarding or rigidity EXTREMITIES: No edema of feet. SKIN: No rash, no masses palpable. NEUROLOGICAL: The patient is awake, alert, oriented x3, mood and affect normal. LABS AND RADIOLOGY: Reviewed results see below Assessment : Patient presented to hospital with sepsis in this patient who did have a fever tachycardia elevated white count source likely left lower lobe pneumonia now with evidence of gram-negative bacteremia will need for full list of vomiting resulting Pseudomonas and Enterobacter Plan: 1-discontinue Rocephin and Zithromax 2-blood cultures will be repeated document clearance of bacteremia 3-obtain sputum for Gram stain and culture 4-we will start the patient cefepime while waiting for the culture to finalize We will follow on clinical condition and cultures to further adjust medication if needed Thank you for this consultation we will follow the patient along with you Past Medical History Past Medical History: COPD, Hyperlipidemia, Hypertension, Osteoarthritis (OA), Respiratory Disorder, Skin Disorder Additional Past Medical History / Comment(s): Chronic hypoxic respiratory failure/home oxygen at 2L/NC ATC, pulmonary htn, current r leg wound, osteoporosis, vitamin D deficiency, cervical spur/bilateral hand pain/decreased ROM History of Any Multi-Drug Resistant Organisms: None Reported Past Surgical History: Tonsillectomy Additional Past Surgical History / Comment(s): colonoscopy with benign polypectomy Past Anesthesia/Blood Transfusion Reactions: No Reported Reaction Smoking Status: Former smoker - Past Family History Father Family Medical History: Myocardial Infarction ([place]) Additional Family Medical History / Comment(s): Father lived to be 95 yrs old. Mother Additional Family Medical History / Comment(s): Mother of blood poisoning. Medications and Allergies Home Medications Medication Instructions Recorded Confirmed Type Fluticasone/Vilanterol [Breo 1 puff INHALATION RT-DAILY 09/09/17 01/04/22 History Ellipta 200-25 Mcg Inhaler] Ipratropium/Albuterol Sulfate 2 puff INHALATION RT-QID PRN 09/09/17 01/04/22 History [Combivent Respimat Inhaler] Ipratropium-Albuterol Nebulize 3 ml INHALATION RT-QID ampul.neb 09/12/17 01/04/22 Rx [Duoneb 0.5 mg-3 mg/3 ml Soln] predniSONE 5 mg PO DAILY 12/26/20 01/04/22 History Metoprolol Tartrate [Lopressor] 50 mg PO BID 30 Days #60 tab 12/28/20 01/04/22 Rx amLODIPine [Norvasc] 10 mg PO DAILY 30 Days #30 tab 12/28/20 01/04/22 Rx Atorvastatin [Lipitor] 20 mg PO HS 01/04/22 01/04/22 History Mirtazapine 7.5 mg PO HS 01/04/22 01/04/22 History Allergies Allergy/AdvReac Type Severity Reaction Status Date / Time No Known Allergies Allergy Verified 01/04/22 14:11 Physical Exam Vitals: Vital Signs Temp Pulse Resp BP Pulse Ox 01/05/22 15:12 74 26 H 96/52 97 01/05/22 14:30 75 24 112/64 95 01/05/22 12:33 140 H 26 H 122/67 95 01/05/22 09:08 165 H 28 H 125/74 95 01/05/22 08:45 133 H 22 01/05/22 08:36 115 H 22 01/05/22 07:45 107 H 18 106/67 98 01/05/22 05:00 135 H 26 H 133/73 97 01/05/22 04:00 111 H 22 132/72 97 01/05/22 01:00 88 24 113/77 96 01/05/22 00:00 112 H 28 H 117/67 95 01/04/22 22:48 117 H 18 116/54 99 01/04/22 20:00 99.0 F 104 H 18 122/60 99 01/04/22 19:51 96 01/04/22 19:38 93 01/04/22 17:50 106 H 18 116/54 97 Intake and Output 01/05/22 01/05/22 01/05/22 06:59 14:59 22:59 Intake Total 60 31 Balance 60 31 Intake: Intake, IV Titration 60 31 Amount Diltiazem 125 mg In 60 31 Sodium Chloride 0.9% 100 ml @ 5 MG/HR 5 mls/hr IV .Q24H [facility] Rx#:[id number] Other: Weight 36.287 kg Results CBC & Chem 7: 01/05/22 04:37 01/05/22 04:37 Labs: Abnormal Lab Results - Last 24 Hours (Table) 01/04/22 01/05/22 01/05/22 Range/Units 21:57 04:37 04:37 WBC 22.2 H (3.8-10.6) k/uL RBC 3.66 L (3.80-5.40) m/uL Neutrophils # 18.9 H (1.3-7.7) k/uL APTT 55.7 H (22.0-30.0) sec Potassium 3.2 L (3.5-5.1) mmol/L BUN 22 H (7-17) mg/dL Calcium 7.5 L (8.4-10.2) mg/dL Magnesium 1.2 L (1.6-2.3) mg/dL Alkaline Phosphatase 191 H (38-126) U/L Total Protein 5.4 L (6.3-8.2) g/dL Albumin 2.8 L (3.5-5.0) g/dL HDL Cholesterol 107.00 H (40.00-60.00) mg/dL 01/05/22 01/05/22 Range/Units 04:37 06:39 WBC (3.8-10.6) k/uL RBC (3.80-5.40) m/uL Neutrophils # (1.3-7.7) k/uL APTT 48.4 H 49.6 H (22.0-30.0) sec Potassium (3.5-5.1) mmol/L BUN (7-17) mg/dL Calcium (8.4-10.2) mg/dL Magnesium (1.6-2.3) mg/dL Alkaline Phosphatase (38-126) U/L Total Protein (6.3-8.2) g/dL Albumin (3.5-5.0) g/dL HDL Cholesterol (40.00-60.00) mg/dL Microbiology - Last 24 Hours (Table) 01/04/22 13:20 Blood Culture Gram Stain - Preliminary Blood 01/04/22 13:05 Blood Culture Gram Stain - Preliminary Blood 01/04/22 13:20 Blood Culture - Final Blood 01/04/22 13:05 Blood Culture - Final Blood
--- NOTE | 2022-01-06 01:36 | XR ---
EXAMINATION TYPE: XR chest 1V portable DATE OF EXAM: 01/06/2022 COMPARISON: 01/05/2022 HISTORY: Hypoxemia TECHNIQUE: FINDINGS: There is some patchy airspace consolidation left lower lobe. There is blunting left costoph renic angle. There is mild blunting right costophrenic angle. There is mild pulmonary congestion. Hea rt is enlarged. There are chest leads. IMPRESSION: There is evidence for some mild heart failure. There is left lower lobe pneumonia and ate lectasis and pleural fluid not significantly different than yesterday.
[2022-01-06] MEDS ORDERED: FUROSEMIDE 10 MG/ML 4 ML VIAL IV STA (02:48)
[2022-01-06 08:18] LABS: Albumin 2.8 g/dL (3.5-5.0); Calcium 7.7 mg/dL (8.4-10.2); Magnesium 3.1 mg/dL (1.6-2.3); Total Bilirubin 0.6 mg/dL (0.2-1.3); Total Protein 5.3 g/dL (6.3-8.2)
[2022-01-06] MEDS: IPRATROPIUM-ALBUTEROL 3 ML NEB INHALATION SCH ×4 (08:18→19:51)
[2022-01-06] MEDS: SYMBICORT 160-4.5 MCG INHALER INHALATION SCH ×2 (08:18→19:51)
[2022-01-06 08:19] LABS: HCT 31.5 % (34.0-46.0); MCH 30.7 pg (25.0-35.0); MCHC 31.2 g/dL (31.0-37.0); MCV 98.3 fL (80.0-100.0); Mean Platelet Volume 9.1; Platelet Count 254 k/uL (150-450); RDW 14.4 % (11.5-15.5); WBC 14.4 k/uL (3.8-10.6)
--- NOTE | 2022-01-06 08:20 | ECHOF ---
Referral Reason:New-onset A. fib MEASUREMENTS -------- HEIGHT: 152.4 cm WEIGHT: 36.3 kg BP: IVSd: 0.9 cm (0.6 - 1.1) LVIDd: 3.4 cm (3.9 - 5.3) LVPWd: 1.2 cm (0.6 - 1.1) EDV(Teich): 48 ml IVSs: 1.7 cm LVIDs: 1.4 cm LVPWs: 1.6 cm %IVS Thck: 81 % ESV(Teich): 5 ml EF(Teich): 89 % %FS: 58 % SV(Teich): 43 ml RVIDd: 2.0 cm (< 3.3) IVC: 18.66 mm Ao Diam: 3.0 cm (2.0 - 3.7) LA Diam: 3.0 cm (2.7 - 3.8) AV Cusp: 1.6 cm (1.5 - 2.6) MR Vmax: 3.94 m/s MR maxP.03 mmHg AV Vmax: 1.55 m/s AV maxP.66 mmHg TR Vmax: 2.92 m/s TR maxP.07 mmHg RAP: 5.00 mmHg RVSP: 39.07 mmHg FINDINGS -------- Atrial fibrillation. This was a technically good study. The left ventricular size is normal. Left ventricular wall thickness is normal. Overall left vent ricular systolic function is normal with, an EF between 55 - 60 %. Left ventricular fillimg pressur e cannot be estimated due to Atrial fibrillation. The right ventricle is normal in size. The left atrial size is normal. The right atrial size is normal. Aortic valve is trileaflet and is mildly thickened. The mitral valve is normal. The mitral valve leaflets are mildly thickened. Mild mitral regurgita tion is present. The tricuspid valve appears structurally normal. Mild tricuspid regurgitation present. There is m ild pulmonary hypertension. The right ventricular systolic pressure, as measured by Doppler, is 39. 07mmHg. There is no pulmonic regurgitation present. The aortic root size is normal. Normal inferior vena cava with normal inspiratory collapse consistent with estimated right atrial pre ssure of 5 mmHg. There is a small, generalized pericardial effusion present. CONCLUSIONS -------- 1. The left ventricular size is normal. 2. Left ventricular wall thickness is normal. 3. Overall left ventricular systolic function is normal with, an EF between 55 - 60 %. 4. Aortic valve is trileaflet and is mildly thickened. 5. The mitral valve leaflets are mildly thickened. 6. Mild mitral regurgitation is present. 7. Mild tricuspid regurgitation present. 8. There is mild pulmonary hypertension. 9. The right ventricular systolic pressure, as measured by Doppler, is 39.07mmHg. 10. There is a small, generalized pericardial effusion present. [employer]ING [employer]ALL MOLDER: Sravanthi Baez RDCS
[2022-01-06 08:36] LABS: HGB 9.8 gm/dL (11.4-16.0)
[2022-01-06] MEDS: DILTIAZEM ORAL 60 MG TAB PO SCH ×3 (10:38→23:15)
[2022-01-06] MEDS: METOPROLOL TARTRATE 50 MG TAB PO SCH ×2 (10:39→23:15)
[2022-01-06] MEDS: predniSONE 20 MG TAB PO SCH (10:39)
--- NOTE | 2022-01-06 10:53 | CDI ---
Documentation Clarification Form Date: 01/06/2022 10:37:04 AM From: Shamika Rose CCS, CCDS Admit Date: 01/04/2022 03:37:00 PM Patient Name: Marni Navarro Visit Number: [id number] Discharge Date: ATTENTION: The Clinical Documentation Specialists (CDI) and [facility] Coding Staff appreciate your assistance in clarifying documentation. Please respond to the clarification below the line at the bottom and electronically sign. The CDI & [facility] Coding staff will review the response and follow-up if needed. Please note: Queries are made part of the Legal Health Record. If you have any questions, please contact the author of this message via ITS. Dr. Theron Romero: Chronic Kidney Disease is documented in the 01/05 Cardiology Consult without further specificity. Nephrology is not documented. Additional clarification regarding the stage of CKD is requested. History/Risk Factors per the 01/04 H/P: COPD & Chronic Hypoxic Respiratory Failure on Home O2 2L atc, Hypertension, Hyperlipidemia, Chronic healing wound to the right lower extremity, Osteoarthritis, Pulmonary Hypertension, Osteoporosis, Vit D Deficiency, Cervical spur & bilateral hand pain with decreased ROM. Clinical Indicators: Presented to the ED on 01/04 via EMS with weakness, fever, legs are wrapped per home care nurse. Admitted New onset Atrial Fibrillation, Pneumonia 01/04 GFR 73. 3 GFR 76. 3 GFR 32 08/27/2021: 50, 37.6 05/27/2021: 41.5 12/24/2020 - 12/28/2020: 23.8, 17, 22, 28, 44 01/04 - 01/06/2021 BUN: 18, 22, 34 01/04 - 01/06/2021 Creatinine: 0.75, 0.73, 1.48 Treatment 01/04: Telemetry, Fall precautions, Sputum culture, O2 2Lnc, IV Na Cl 500 mls @ 1000 mls/hr q35M, IV Rocephin 1,000 mg x1 x2, IV Azithromycin 250 mls @ 250 mls/hr x1, IV Heparin x1, IV Cardizem Drip Bolus 10 mg x1, IV Cardizem 125 mls @ 5 mls/hr q24Hr, INH Duoneb QID. Please clarify the stage of the CKD, if known: [ ] CKD Stage 2 (GFR 60-89) [ ] CKD Stage 3 (GFR 30-59) [ ] CKD Stage 3a (GFR 45-59) [ ] CKD Stage 3b (GFR 30-44) [ x] CKD Stage 4 (GFR 15-29) [ ] CKD ruled out [ ] Other, please specify [ ] Unable to determine (Template Last revised: November 2020) MTDD
[2022-01-06 11:06] VITALS: BMI 15.6
[2022-01-06] MEDS: amLODIPine 10 MG TAB PO SCH (11:28)
[2022-01-06] MEDS: CEFEPIME 2 GM in SODIUM CHLORIDE 0.9% 100 ML IVPB SCH (12:08)
--- NOTE | 2022-01-06 12:20 | P.PN ---
Subjective Progress Note Date: 01/06/22 Principal diagnosis: Gram-negative bacteremia Patient is 86-year female with multiple comorbidities presented to hospital with a fever tachycardia has been complaining of some shortness of breath and cough and did have evidence of gram-negative bacteremia. On today's evaluation that is 01/06/2022 the patient denies having any fever or any chills, the patient is feeling slightly better she is breathing comfortably did have a cough not bringing any sputum no abdominal pain no diarrhea Objective - Vital Signs Vital signs: Vital Signs Temp 97.6 F 01/06/22 11:39 Pulse 84 01/06/22 12:12 Resp 16 01/06/22 11:39 BP 116/66 01/06/22 11:39 Pulse Ox 94 L 01/06/22 11:39 Intake & Output 01/05/22 01/06/22 01/06/22 18:59 06:59 18:59 Intake Total 31 Balance 31 Weight 36.287 kg 36.287 kg Intake: Intake, IV Titration 31 Amount Diltiazem 125 mg In 31 Sodium Chloride 0.9% 100 ml @ 5 MG/HR 5 mls/hr IV .Q24H [facility] Rx#:[id number] Other: Voiding Method Bedside Commode Bedside Commode Bedside Commode # Voids 1 1 # Bowel Movements 1 - Exam GENERAL DESCRIPTION: Elderly female lying in bed, no distress. No tachypnea or accessory muscle of respiration use. LUNGS: Unlabored breathing. Decreased breath sound the base HEART: S1, S2, regular rate and rhythm. No loud murmur ABDOMEN: Soft, no tenderness , guarding or rigidity, no organomegaly EXTREMITIES: No edema of feet. - Labs CBC & Chem 7: 01/06/22 07:47 01/06/22 07:47 Labs: Abnormal Lab Results - Last 24 Hours (Table) 01/05/22 01/06/22 01/06/22 Range/Units 10:46 07:47 07:47 WBC 14.4 H (3.8-10.6) k/uL RBC 3.20 L (3.80-5.40) m/uL Hgb 9.8 L D (11.4-16.0) gm/dL Hct 31.5 L (34.0-46.0) % Sodium 136 L (137-145) mmol/L BUN 34 H (7-17) mg/dL Creatinine 1.48 H (0.52-1.04) mg/dL Glucose 138 H (74-99) mg/dL Calcium 7.7 L (8.4-10.2) mg/dL Magnesium 3.1 H (1.6-2.3) mg/dL Alkaline Phosphatase 189 H (38-126) U/L Total Protein 5.3 L (6.3-8.2) g/dL Albumin 2.8 L (3.5-5.0) g/dL Procalcitonin 7.55 H (0.02-0.09) ng/mL Microbiology - Last 24 Hours (Table) 01/04/22 13:20 Blood Culture Gram Stain - Preliminary Blood Blood Culture - Preliminary Gram Neg Bacilli 01/04/22 13:05 Blood Culture Gram Stain - Preliminary Blood Blood Culture - Preliminary Gram Neg Bacilli 01/04/22 13:20 Blood Culture - Final Blood 01/04/22 13:05 Blood Culture - Final Blood Assessment and Plan (1) Bacteremia Current Visit: Yes Status: Acute Code(s): R78.81 - BACTEREMIA SNOMED Code(s): 2585844 Plan: 1patient with gram-negative bacteremia source likely pneumonia, patient fever has responded to cefepime that will be continued while waiting for the ID and sensitivity of this pathogen, blood culture repeated this morning to document clearance of bacteremia Time with Patient: Less than 30
--- NOTE | 2022-01-06 13:52 | P.PN ---
Subjective Progress Note Date: 01/06/22 86-year-old female patient with known history of COPD with an FEV1 of 62% of predicted and diffusion capacity of 36% of predicted maintained on home O2 and maintain also on Breo one inhalation a day in addition to Combivent rescue inhaler on an as-needed basis, followed up in our office regarding her chronic COPD. The patient also has multiple other medical problems and comorbidities including chronic atrial fibrillation and hyperlipidemia and osteoarthritis and hypertension. Her last evaluation with us in the office was in July 2021. The patient came into the emergency department yesterday for multiple complaints. She was feeling weak, she was feeling terrible. She was having back pain. And the patient was also having fever and tachycardia. Her home care nurse while wrapping her legs noticed that the patient was having some fever and tachycardia. Infection was obviously a concern. The patient denied having any shortness of breath above and beyond her baseline. She denied having any chest pain or palpitations. No nausea. No vomiting. No diarrhea. No abdominal pain. No dysuria frequency or urgency. In the ED, the patient was found to have a fever of 100.4, tachycardic with a heart rate of 118 irregular consistent with atrial fibrillation. BP was adequate and the patient's pulse ox was 98% on 2 L of oxygen by nasal cannula. Chest x-ray was concerning for left lower lobe pneumonia . White cell count is at 24.0 with a hemoglobin of 11.7 and the patient also has a platelet count of 265. The sodium is at 139 with a potassium level of 3.2, BUN is at 22 with a creatinine of 0.7, troponin times. Been negative at 0.03, her alkaline phosphatase was 191, AST was 32, ALT was 26, electrolytes show a potassium level of 3.2, and the influenza screen was negative, COVID 19 testing was negativeOn 01/06/2022 patient seen in follow-up on selective care unit, she is awake and alert, at times she is confused, she is answering questions appropriately right now, she does have a clinical safety manager at the bedside. She is feeding herself lunch, she has a good appetite, she states her breathing is improving, she is not coughing up any phlegm. She has not been able to produce a sputum for culture, remains on cefepime for left lower lung pneumonia. On 4 l/min with a pulse ox of 94%. Afebrile overnight On the 01/06/2022 patient seen in follow-up on selective care unit, she is awake and alert, in no acute distress, breathing comfortable, on 4 L of oxygen patient is satting 94%, no fever or chills, vital signs have been stable, she is intermittent confused, but not agitated, clinical safety manager is at the bedside. No worsening dyspnea or cough, lung sounds are diminished, no rhonchi or wheezing. Here she remains on cefepime, she is not producing any phlegm, we have not been able to collect a sputum culture, but clinically patient states she is feeling better, no hemoptysis no chest discomfort. Objective - Vital Signs Vital signs: Vital Signs Temp 97.6 F 01/06/22 11:39 Pulse 84 01/06/22 12:12 Resp 16 01/06/22 11:39 BP 116/66 01/06/22 11:39 Pulse Ox 94 L 01/06/22 11:39 Intake & Output 01/05/22 01/06/22 01/06/22 18:59 06:59 18:59 Intake Total 31 Balance 31 Weight 36.287 kg 36.287 kg Intake: Intake, IV Titration 31 Amount Diltiazem 125 mg In 31 Sodium Chloride 0.9% 100 ml @ 5 MG/HR 5 mls/hr IV .Q24H [facility] Rx#:[id number] Other: Voiding Method Bedside Commode Bedside Commode Bedside Commode # Voids 1 1 # Bowel Movements 1 - Exam GENERAL EXAM: Alert, very pleasant 86-year-old white female, chronically ill- looking, but appears to be no acute distress, 4 L of oxygen pulse ox of 94% comfortable in no apparent distress. HEAD: Normocephalic/atraumatic. EYES: Normal reaction of pupils, equal size. Conjunctiva pink, sclera white. NOSE: Clear with pink turbinates. THROAT: No erythema or exudates. NECK: No masses, no JVD, no thyroid enlargement, no adenopathy. CHEST: No chest wall deformity. Symmetrical expansion. LUNGS: Equal air entry with diminished breath sounds bilaterally CVS: Regular rate and rhythm, normal S1 and S2, no gallops, no murmurs, no rubs ABDOMEN: Soft, nontender. No hepatosplenomegaly, normal bowel sounds, no guarding or rigidity. EXTREMITIES: No clubbing, no edema, no cyanosis, 2+ pulses and upper and lower extremities. MUSCULOSKELETAL: Muscle strength and tone normal. SPINE: No scoliosis or deformity SKIN: No rashes CENTRAL NERVOUS SYSTEM: Alert and oriented -3. No focal deficits, tone is normal in all 4 extremities. PSYCHIATRIC: Alert and oriented -3. Appropriate affect. Intact judgment and insight. - Labs CBC & Chem 7: 01/06/22 07:47 01/06/22 07:47 Labs: Abnormal Lab Results - Last 24 Hours (Table) 01/05/22 01/06/22 01/06/22 Range/Units 10:46 07:47 07:47 WBC 14.4 H (3.8-10.6) k/uL RBC 3.20 L (3.80-5.40) m/uL Hgb 9.8 L D (11.4-16.0) gm/dL Hct 31.5 L (34.0-46.0) % Sodium 136 L (137-145) mmol/L BUN 34 H (7-17) mg/dL Creatinine 1.48 H (0.52-1.04) mg/dL Glucose 138 H (74-99) mg/dL Calcium 7.7 L (8.4-10.2) mg/dL Magnesium 3.1 H (1.6-2.3) mg/dL Alkaline Phosphatase 189 H (38-126) U/L Total Protein 5.3 L (6.3-8.2) g/dL Albumin 2.8 L (3.5-5.0) g/dL Procalcitonin 7.55 H (0.02-0.09) ng/mL Microbiology - Last 24 Hours (Table) 01/04/22 13:20 Blood Culture Gram Stain - Preliminary Blood Blood Culture - Preliminary Gram Neg Bacilli 01/04/22 13:05 Blood Culture Gram Stain - Preliminary Blood Blood Culture - Preliminary Gram Neg Bacilli 01/04/22 13:20 Blood Culture - Final Blood 01/04/22 13:05 Blood Culture - Final Blood Assessment and Plan Plan: Assessment: #1. Acute left lower lobe pneumonia, chest x-ray shows a dense consolidation of the left lower lobe, patient is currently on cefepime, and initial treatment was with Rocephin and Zithromax. #2. Acute on chronic hypoxic respiratory failure related to the above, currently on 4 L of oxygen, normally wears 2 L of oxygen on a regular basis #3. Moderately severe COPD with a baseline FEV1 of 62% of predicted, on prednisone 5 mg daily and home oxygen at 2 L #4. New-onset A. fib with RVR, currently better controlled, cardiology is following. #5. Acute leukocytosis related to acute community acquired pneumonia, improving #6. Hyperlipidemia #7. Hypertension #8. Right lower extremity wound #9. Thoracic scoliosis/kyphosis Plan: Clinically patient is improving Continue current antibiotics Try to collect the sputum sample No worsening dyspnea Heart rate control and anticoagulation per cardiology Vital signs are stable Follow-up chest x-ray shows mild CHF, and left lower lobe pneumonia without significant change White blood cell count is improving on today's labs We'll continue to follow patient's clinical course I have personally seen and examined the patient, performed the documentation and the assessment and plan as written. Number of minutes spent on the visit: [10] Time with Patient: Less than 30 (I have personally seen and examined the patient and reviewed the documentation. I performed a joint evaluation with the nurse practitioner in this evaluation was done more than 20 minutes. I fully agree with the documentation above and the plan of care.)
--- NOTE | 2022-01-06 14:03 | P.PN ---
Subjective This is a pleasant 86-year-old female past medical history significant for chronic kidney disease, COPD, hyperlipidemia, hypertension. She follows in the office with Dr. López. We have been asked to see in consultation for tachycardia. Patient presents to the emergency department with symptoms of fever, cough, chills, generalized weakness. Her symptoms started about one week ago. Home care nurse by wrapping the patient's legs noted the patient to be febrile and tachycardic. Recommended the patient be evaluated in the emergency department. Patient denies any palpitations, chest pain,lightheadedness , dizziness, syncope or near syncope, orthopnea or PND. On exam patient found to be in multifocal atrial tachycardia, there was concern for atrial fibrillation is a patient was started on IV heparin drip and IV Cardizem drip. However, ca rdia telemetry and EKGs reveal multifocal atrial tachycardia 01/06/2022 Patient seen and examined at bedside, she is confused. Alert and oriented x 0. Vital signs are stable, patient's heart rates are better controlled heart rate in the 80s-90s. No evidence of atrial fibrillation patient with atrial tachycardia. Vital signs have been stable, she is intermittent confused, but not agitated, safety person is at the bedside. Echocardiogram: EF 5560 percent, mild mitral regurgitation, mild tricuspid regurgitation, mild pulmonary hypertension. PHYSICAL EXAMINATION Vitals reviewed CONSTITUTIONAL: No apparent distress. HEENT: Neck Supple. No JVD. No carotid bruit. CHEST EXAMINATION: Lungs are clear to auscultation. No chest wall tenderness is noted on palpation or with deep breathing. HEART EXAMINATION: Tachycardic, irregular rate and rhythm. S1, S2 heard. No murmurs, gallops or rub. ABDOMEN: Soft, nontender. Positive bowel sounds. EXTREMITIES: 2+ peripheral pulses, no lower extremity edema and no calf tenderness. NEUROLOGIC EXAMINATION: Patient is awake, alert and oriented x0 ASSESSMENT Multifocal atrial tachycardia Left lower lobe pneumonia COPD Acute kidney injury, could be related to Lasix given overnight and hypotension Hyperlipidemia History of Hypertension Healing wound in the right lower extremity PLAN Heart rates are better controlled. Discontinue amlodipine Continue PO Cardizem and statin and metoprolol tartrate Continue statin and metoprolol Further recommendations based on clinical course Nurse practitioner note has been reviewed by physician. Signing provider agrees with the documented findings, assessment, and plan of care. Objective - Vital Signs Vital signs: Vital Signs Temp 97.6 F 01/06/22 11:39 Pulse 84 01/06/22 12:12 Resp 16 01/06/22 11:39 BP 116/66 01/06/22 11:39 Pulse Ox 94 L 01/06/22 11:39 Intake & Output 01/05/22 01/06/22 01/06/22 18:59 06:59 18:59 Intake Total 31 Balance 31 Weight 36.287 kg 36.287 kg Intake: Intake, IV Titration 31 Amount Diltiazem 125 mg In 31 Sodium Chloride 0.9% 100 ml @ 5 MG/HR 5 mls/hr IV .Q24H [facility] Rx#:[id number] Other: Voiding Method Bedside Commode Bedside Commode Bedside Commode # Voids 1 1 # Bowel Movements 1 - Labs CBC & Chem 7: 01/06/22 07:47 01/06/22 07:47 Labs: Abnormal Lab Results - Last 24 Hours (Table) 01/05/22 01/06/22 01/06/22 Range/Units 10:46 07:47 07:47 WBC 14.4 H (3.8-10.6) k/uL RBC 3.20 L (3.80-5.40) m/uL Hgb 9.8 L D (11.4-16.0) gm/dL Hct 31.5 L (34.0-46.0) % Sodium 136 L (137-145) mmol/L BUN 34 H (7-17) mg/dL Creatinine 1.48 H (0.52-1.04) mg/dL Glucose 138 H (74-99) mg/dL Calcium 7.7 L (8.4-10.2) mg/dL Magnesium 3.1 H (1.6-2.3) mg/dL Alkaline Phosphatase 189 H (38-126) U/L Total Protein 5.3 L (6.3-8.2) g/dL Albumin 2.8 L (3.5-5.0) g/dL Procalcitonin 7.55 H (0.02-0.09) ng/mL Microbiology - Last 24 Hours (Table) 01/04/22 13:20 Blood Culture Gram Stain - Preliminary Blood Blood Culture - Preliminary Gram Neg Bacilli 01/04/22 13:05 Blood Culture Gram Stain - Preliminary Blood Blood Culture - Preliminary Gram Neg Bacilli 01/04/22 13:20 Blood Culture - Final Blood 01/04/22 13:05 Blood Culture - Final Blood
[2022-01-06] MEDS ORDERED: HALOPERIDOL LACTATE 5 MG/ML 1 ML VIAL IVP PRN (14:13)
[2022-01-06] MEDS ORDERED: HALOPERIDOL LACTATE 5 MG/ML 1 ML VIAL ONE (14:15)
[2022-01-06] MEDS ORDERED: LORazepam 2 MG/ML INJ IV STA (14:37)
--- NOTE | 2022-01-06 17:08 | P.PN ---
Subjective Progress Note Date: 01/06/22 Hospital course: Patient is a very pleasant 86-year-old female with a past medical history of COPD home oxygen dependent on 2 L at all times, hypertension, and hyp erlipidemia. She presented to the emergency department with a chief complaint of fever and tachycardia. Patient has healing wound to left lower extremity and she has been under care of wound care for treatment/dressing changes. Patient reports when home care nurse evaluated her she was told that she had a fever and her heart was beating very fast. Upon arrival to the emergency department jason boucher was found to be in new onset atrial fibrillation with RVR. An EKG was completed showing A. fib RVR at 131 bpm. Chest x-ray was then completed revealing left lower lobe infiltrate and/or atelectasis along with patchy density in right parahilar region. Lab work significant for leukocytosis with WBC count of 24.0 with left shift, hypokalemia with potassium 3.3, prerenal azotemia with elevated BUN of 18, hyperbilirubinemia with bilirubin of 1.5, AST 39, an alkaline phosphatase of 234. Troponin elevated at 0.036. Patient started on IV antibiotics azithromycin and Rocephin for treatment of community- acquired pneumonia. Patient then started on heparin infusion for new onset A. fib RVR. Patient was admitted under our services with consultation to cardiology and pulmonology. Physical exam: Patient seen and fully evaluated at the bedside this morning. Sitter at bedside for safety as patient has had reported episodes of intermittent confusion, paranoia and combative behaviors. At time of assessment patient calm, cooperative, and alert to person, place, and situation. She was confused to time. Patient reports breathing has improved and she denies any chest pain, palpitations, cough, headache, dizziness, lightheadedness, abdominal pain, nausea, vomiting, or any other complaints at this time. Leukocytosis improving down to 14.4 this morning. Hypokalemia and hypomagnesemia resolved. Pro- calcitonin significantly elevated at 7.55. Patient to remain on IV antibiotics: Cefepime pending final culture and sensitivity results. Vital signs reviewed and stable. General: Nontoxic, no distress and appears stated age. Thin build. Derm: Skin warm and dry, normal coloration for ethnicity. Healing wound right lower dominguez no signs of surrounding erythema or drainage. Head: Atraumatic, normocephalic and symmetric. Eyes: EOMs intact, no lid lag, and anicteric sclera Mouth: no lip lesions, mucus membranes moist Cardiovascular: Irregularly irregular rhythm, positive posterior tibial pulses bilaterally, and cap refill < 2 seconds. Lungs: Respirations even, regular, and unlabored on or liters O2 via nasal cannula with SpO2 96%. Lungs diminished, soft expiratory wheezes present, no rhonchi/rales or crackles noted. No accessory muscle usage. Abdominal: soft, nontender to palpation, no guarding, no appreciable organomegaly Ext: ROM intact. No gross muscle atrophy, no edema, no contractures Neuro: Speech clear, face symmetrical and CN II-XII grossly intact with no noted focal neuro deficits Psych: Alert and oriented to person, place, time, and situation. Appropriate and pleasant affect. Assessment and Plan of Care: Sepsis secondary to acute infections with pneumonia and bacteremia Community-acquired pneumonia Gram-negative bacteremia, preliminary results Pyrexia Leukocytosis Metabolic encephalopathy secondary to current infectious process -Preliminary blood culture results reporting gram-negative rods awaiting final culture and sensitivity report. -Follow-up on daily repeat blood cultures until negative -Oxygenation to be administered and titrated as needed to maintain SPO2 equal to or greater than 92% -Telemetry monitoring. -Pulse-oximetry -Duonebs as needed for SOB and/or wheezing -Incentive Spirometry -Steroids: Prednisone -Antibiotics: Cefepime -Infectious disease following -Pulmonary following Multifocal atrial tachycardia Elevated troponin secondary to tachycardic rate -Cardiology following -Echocardiogram revealing EF between 55 and 60% with mild pulmonary hypertension and mild mitral and tricuspid regurgitation. -Telemetry monitoring -Patient patient was started on oral Cardizem and metoprolol l -Continue daily aspirin and atorvastatin.. -Amlodipine discontinued by cardiology. Advanced COPD home oxygen dependent with increased oxygenation needs -Pulmonology consulted secondary to patient with pneumonia and history of advanced COPD home oxygen dependent. -Duonebs as needed for SOB and/or wheezing -Incentive Spirometry -Steroids: Prednisone Hypomagnesemia, resolved -We will continue to monitor with repeat a.m. labs. Hypokalemia, resolved -We will continue to monitor with repeat a.m. labs. Hypertension -Monitor vital signs and continue daily medication regimen with amlodipine and metoprolol.. Hyperlipidemia -Continue daily medication regimen with atorvastatin Chronic healing wound to right lower extremity -Wound care consult for dressing changes CODE STATUS: Full code DVT prophylaxis: Heparin infusion Discussed with: Patient and RN Anticipated discharge date: Clinical course to determine Anticipated discharge place: Home with home care A total of 40 minutes was spent on the care of this complex patient more than 50% of the time was spent in counseling and care coordination. I reviewed the documentation as provided by the OSIRIS above, who is the original author of this note. I agree with the documented assessment and plan, with the following changes: None Objective - Vital Signs Vital signs: Vital Signs Temp 97.6 F 01/06/22 07:46 Pulse 76 01/06/22 07:46 Resp 16 01/06/22 07:46 BP 110/49 01/06/22 07:46 Pulse Ox 95 01/06/22 07:46 Intake & Output 01/05/22 01/06/22 01/06/22 18:59 06:59 18:59 Intake Total 31 Balance 31 Weight 36.287 kg Intake: Intake, IV Titration 31 Amount Diltiazem 125 mg In 31 Sodium Chloride 0.9% 100 ml @ 5 MG/HR 5 mls/hr IV .Q24H [facility] Rx#:[id number] Other: Voiding Method Bedside Commode Bedside Commode # Voids 1 1 - Labs CBC & Chem 7: 01/06/22 07:47 01/06/22 07:47 Labs: Abnormal Lab Results - Last 24 Hours (Table) 01/05/22 01/05/22 Range/Units 04:37 10:46 HDL Cholesterol 107.00 H (40.00-60.00) mg/dL Procalcitonin 7.55 H (0.02-0.09) ng/mL Microbiology - Last 24 Hours (Table) 01/04/22 13:20 Blood Culture Gram Stain - Preliminary Blood 01/04/22 13:05 Blood Culture Gram Stain - Preliminary Blood 01/04/22 13:20 Blood Culture - Final Blood 01/04/22 13:05 Blood Culture - Final Blood
[2022-01-06] MEDS: HALOPERIDOL LACTATE 5 MG/ML 1 ML VIAL IVP PRN (19:44)
[2022-01-06] MEDS: CEFEPIME 1 GM in SODIUM CHLORIDE 0.9% 50 ML IVPB SCH (20:35)
[2022-01-06] MEDS: ATORVASTATIN 20 MG TAB PO SCH (23:15)
[2022-01-06] MEDS: MIRTAZAPINE 15 MG TAB PO SCH (23:15)
[2022-01-07] MEDS: HALOPERIDOL LACTATE 5 MG/ML 1 ML VIAL IVP PRN ×2 (02:49→21:17)
[2022-01-07] MEDS: CEFEPIME 1 GM in SODIUM CHLORIDE 0.9% 50 ML IVPB SCH ×2 (08:15→19:40)
[2022-01-07] MEDS: DILTIAZEM ORAL 60 MG TAB PO SCH ×3 (08:15→20:26)
[2022-01-07] MEDS: predniSONE 20 MG TAB PO SCH (08:15)
[2022-01-07] MEDS: METOPROLOL TARTRATE 50 MG TAB PO SCH ×2 (08:15→20:26)
[2022-01-07] MEDS: SYMBICORT 160-4.5 MCG INHALER INHALATION SCH ×2 (08:33→19:45)
[2022-01-07] MEDS: IPRATROPIUM-ALBUTEROL 3 ML NEB INHALATION SCH ×4 (08:33→19:45)
[2022-01-07 10:41] LABS: Hypochromasia Slight; MCH 31.3 pg (25.0-35.0); MCHC 31.4 g/dL (31.0-37.0); MCV 99.8 fL (80.0-100.0); Mean Platelet Volume 9.6; Platelet Count 243 k/uL (150-450); RDW 13.8 % (11.5-15.5); WBC 13.4 k/uL (3.8-10.6)
[2022-01-07 11:52] LABS: Albumin 2.7 g/dL (3.5-5.0); Calcium 7.8 mg/dL (8.4-10.2); Magnesium 2.6 mg/dL (1.6-2.3); Potassium 4.1 mmol/L (3.5-5.1); Total Bilirubin 0.5 mg/dL (0.2-1.3); Total Protein 5.1 g/dL (6.3-8.2)
--- NOTE | 2022-01-07 12:15 | CT ---
EXAMINATION TYPE: CT brain wo con DATE OF EXAM: 01/07/2022 HISTORY: Altered mental status CT DLP: 1137.4 mGycm. Automated Exposure Control for Dose Reduction was Utilized. TECHNIQUE: CT scan of the head is performed without contrast. COMPARISON: CT brain August 28, 2021. FINDINGS: There is no acute intracranial hemorrhage or midline shift identified. There is moderate diffuse ventricular and sulcal prominence consistent with diffuse age-related cerebral atrophy. Ther e is moderate to borderline severe low-attenuation in the periventricular white matter consistent wit h chronic small vessel ischemic change redemonstrated. The globes are intact and the visualized sinu ses are clear. IMPRESSION: No acute intracranial hemorrhage or midline shift. There is moderate diffuse age-relate d cerebral atrophy and moderate to borderline severe chronic small vessel ischemic change redemonstra rea. No significant change from prior CT.
--- NOTE | 2022-01-07 13:30 | P.PN ---
Subjective This is a pleasant 86-year-old female past medical history significant for chronic kidney disease, COPD, hyperlipidemia, hypertension. She follows in the office with Dr. López. We have been asked to see in consultation for tachycardia. Patient presents to the emergency department with symptoms of fever, cough, chills, generalized weakness. Her symptoms started about one week ago. Home care nurse by wrapping the patient's legs noted the patient to be febrile and tachycardic. Recommended the patient be evaluated in the emergency department. Patient denies any palpitations, chest pain,lightheadedness , dizziness, syncope or near syncope, orthopnea or PND. On exam patient found to be in multifocal atrial tachycardia, there was concern for atrial fibrillation is a patient was started on IV heparin drip and IV Cardizem drip. However, ca rdiac telemetry and EKGs reveal multifocal atrial tachycardia 01/07/2022 Patient seen and examined at bedside, she is confused. Alert and oriented x 0. Vital signs are stable, patient's heart rates are better controlled heart rate in the 80s-90s. No evidence of atrial fibrillation patient, patient had atrial tachycardia. S is intermittent confused, but not agitated, safety assistant is at the bedside. Echocardiogram: EF 5560%, mild mitral regurgitation, mild tricuspid regurgitation, mild pulmonary hypertension. PHYSICAL EXAMINATION Vitals reviewed CONSTITUTIONAL: No apparent distress. HEENT: Neck Supple. No JVD. No carotid bruit. CHEST EXAMINATION: Lungs are clear to auscultation. No chest wall tenderness is noted on palpation or with deep breathing. HEART EXAMINATION: Tachycardic, irregular rate and rhythm. S1, S2 heard. No murmurs, gallops or rub. ABDOMEN: Soft, nontender. Positive bowel sounds. EXTREMITIES: 2+ peripheral pulses, no lower extremity edema and no calf tenderness. NEUROLOGIC EXAMINATION: Patient is awake, alert and oriented x0 ASSESSMENT Multifocal atrial tachycardia Left lower lobe pneumonia COPD Acute kidney injury, could be related to Lasix given overnight and hypotension Hyperlipidemia History of Hypertension Healing wound in the right lower extremity PLAN Heart rates are better controlled. Patient diagnosed with multifocal atrial tachycardia, no atrial fibrillation Continue PO Cardizem and statin and metoprolol tartrate Continue statin and metoprolol No further treatments from a cardiology perspective, we will follow the patient is sedated. Please reconsult if needed. Nurse practitioner note has been reviewed by physician. Signing provider agrees with the documented findings, assessment, and plan of care. Objective - Vital Signs Vital signs: Vital Signs Temp 98.3 F 01/07/22 12:40 Pulse 84 01/07/22 12:40 Resp 20 01/07/22 12:40 BP 100/50 01/07/22 12:40 Pulse Ox 93 L 01/07/22 12:40 Intake & Output 01/06/22 01/07/22 01/07/22 18:59 06:59 18:59 Intake Total 100 960 Balance 100 960 Weight 36.287 kg Intake: Intake, IV Titration 50 Amount Cefepime 1 gm In Sodium 50 Chloride 0.9% 50 ml @ 12. 5 mls/hr IVPB Q12HR [facility] Rx#:[id number] Oral 50 960 Other: Voiding Method Bedside Commode Bedside Commode Bedside Commode # Voids 1 # Bowel Movements 1 - Labs CBC & Chem 7: 01/07/22 10:25 01/07/22 10:25 Labs: Abnormal Lab Results - Last 24 Hours (Table) 01/07/22 01/07/22 Range/Units 10:25 10:25 WBC 13.4 H (3.8-10.6) k/uL RBC 3.20 L (3.80-5.40) m/uL Hgb 10.0 L (11.4-16.0) gm/dL Hct 32.0 L (34.0-46.0) % Chloride 110 H (98-107) mmol/L BUN 41 H (7-17) mg/dL Creatinine 1.24 H (0.52-1.04) mg/dL Glucose 225 H (74-99) mg/dL Calcium 7.8 L (8.4-10.2) mg/dL Magnesium 2.6 H (1.6-2.3) mg/dL Alkaline Phosphatase 163 H (38-126) U/L Total Protein 5.1 L (6.3-8.2) g/dL Albumin 2.7 L (3.5-5.0) g/dL Microbiology - Last 24 Hours (Table) 01/06/22 07:47 Blood Culture - Preliminary Blood No Growth after 24 hours
--- NOTE | 2022-01-07 13:30 | P.PN ---
Subjective Progress Note Date: 01/07/22 86-year-old female patient with known history of COPD with an FEV1 of 62% of predicted and diffusion capacity of 36% of predicted maintained on home O2 and maintain also on Breo one inhalation a day in addition to Combivent rescue inhaler on an as-needed basis, followed up in our office regarding her chronic COPD. The patient also has multiple other medical problems and comorbidities including chronic atrial fibrillation and hyperlipidemia and osteoarthritis and hypertension. Her last evaluation with us in the office was in July 2021. The patient came into the emergency department yesterday for multiple complaints. She was feeling weak, she was feeling terrible. She was having back pain. And the patient was also having fever and tachycardia. Her home care nurse while wrapping her legs noticed that the patient was having some fever and tachycardia. Infection was obviously a concern. The patient denied having any shortness of breath above and beyond her baseline. She denied having any chest pain or palpitations. No nausea. No vomiting. No diarrhea. No abdominal pain. No dysuria frequency or urgency. In the ED, the patient was found to have a fever of 100.4, tachycardic with a heart rate of 118 irregular consistent with atrial fibrillation. BP was adequate and the patient's pulse ox was 98% on 2 L of oxygen by nasal cannula. Chest x-ray was concerning for left lower lobe pneumonia . White cell count is at 24.0 with a hemoglobin of 11.7 and the patient also has a platelet count of 265. The sodium is at 139 with a potassium level of 3.2, BUN is at 22 with a creatinine of 0.7, troponin times. Been negative at 0.03, her alkaline phosphatase was 191, AST was 32, ALT was 26, electrolytes show a potassium level of 3.2, and the influenza screen was negative, COVID 19 testing was negativeOn 01/06/2022 patient seen in follow-up on selective care unit, she is awake and alert, at times she is confused, she is answering questions appropriately right now, she does have a safety patrol officer at the bedside. She is feeding herself lunch, she has a good appetite, she states her breathing is improving, she is not coughing up any phlegm. She has not been able to produce a sputum for culture, remains on cefepime for left lower lung pneumonia. On 4 l/min with a pulse ox of 94%. Afebrile overnight On the 01/06/2022 patient seen in follow-up on selective care unit, she is awake and alert, in no acute distress, breathing comfortable, on 4 L of oxygen patient is satting 94%, no fever or chills, vital signs have been stable, she is intermittent confused, but not agitated, safety patrol officer is at the bedside. No worsening dyspnea or cough, lung sounds are diminished, no rhonchi or wheezing. Here she remains on cefepime, she is not producing any phlegm, we have not been able to collect a sputum culture, but clinically patient states she is feeling better, no hemoptysis no chest discomfort. On 01/07/2022 patient seen in follow-up on selective care unit, she is resting comfortably in bed, sleeping, easily arouses, denies any acute distress, remains on 4 L of oxygen with a pulse ox of 97%, no fever or chills, no complaints of chest discomfort, no hemoptysis. Remains on cefepime for left lower lobe pneumonia, and gram-negative bacteremia, final blood cultures are pending, follow-up blood cultures have been sent showing no growth at the 24-hour jose. White blood cell count is 13.4, hemoglobin is 10, sodium is 140, potassium is 4.1, chloride is 110, CO2 is 24, BUN is 41, creatinine is 1.24. Pro-calcitonin level was 7.55. Follow-up chest x-ray showed evidence of some mild heart failure and patient received a dose of Lasix. Patient has been confused, safety patrol officer the bedside. Briefly CT showed no acute intracranial hemorrhage or midline shift Objective - Vital Signs Vital signs: Vital Signs Temp 98.3 F 01/07/22 12:40 Pulse 84 01/07/22 12:40 Resp 20 01/07/22 12:40 BP 100/50 01/07/22 12:40 Pulse Ox 93 L 01/07/22 12:40 Intake & Output 01/06/22 01/07/22 01/07/22 18:59 06:59 18:59 Intake Total 100 960 Balance 100 960 Weight 36.287 kg Intake: Intake, IV Titration 50 Amount Cefepime 1 gm In Sodium 50 Chloride 0.9% 50 ml @ 12. 5 mls/hr IVPB Q12HR [facility] Rx#:[id number] Oral 50 960 Other: Voiding Method Bedside Commode Bedside Commode Bedside Commode # Voids 1 # Bowel Movements 1 - Exam GENERAL EXAM: lethargic, but easily arousable 86-year-old white female, chronically ill-looking, but appears to be no acute distress, 4 L of oxygen pulse ox of 97% comfortable in no apparent distress. HEAD: Normocephalic/atraumatic. EYES: Normal reaction of pupils, equal size. Conjunctiva pink, sclera white. NOSE: Clear with pink turbinates. THROAT: No erythema or exudates. NECK: No masses, no JVD, no thyroid enlargement, no adenopathy. CHEST: No chest wall deformity. Symmetrical expansion. LUNGS: Equal air entry with diminished breath sounds bilaterally CVS: Regular rate and rhythm, normal S1 and S2, no gallops, no murmurs, no rubs ABDOMEN: Soft, nontender. No hepatosplenomegaly, normal bowel sounds, no guarding or rigidity. EXTREMITIES: No clubbing, no edema, no cyanosis, 2+ pulses and upper and lower extremities. MUSCULOSKELETAL: Muscle strength and tone normal. SPINE: No scoliosis or deformity SKIN: No rashes CENTRAL NERVOUS SYSTEM: Lethargic, but easily arousable No focal deficits, tone is normal in all 4 extremities. - Labs CBC & Chem 7: 01/07/22 10:25 01/07/22 10:25 Labs: Abnormal Lab Results - Last 24 Hours (Table) 01/07/22 01/07/22 Range/Units 10:25 10:25 WBC 13.4 H (3.8-10.6) k/uL RBC 3.20 L (3.80-5.40) m/uL Hgb 10.0 L (11.4-16.0) gm/dL Hct 32.0 L (34.0-46.0) % Chloride 110 H (98-107) mmol/L BUN 41 H (7-17) mg/dL Creatinine 1.24 H (0.52-1.04) mg/dL Glucose 225 H (74-99) mg/dL Calcium 7.8 L (8.4-10.2) mg/dL Magnesium 2.6 H (1.6-2.3) mg/dL Alkaline Phosphatase 163 H (38-126) U/L Total Protein 5.1 L (6.3-8.2) g/dL Albumin 2.7 L (3.5-5.0) g/dL Microbiology - Last 24 Hours (Table) 01/06/22 07:47 Blood Culture - Preliminary Blood No Growth after 24 hours Assessment and Plan Plan: Assessment: #1. Acute left lower lobe pneumonia, chest x-ray shows a dense consolidation of the left lower lobe, patient is currently on cefepime, and initial treatment was with Rocephin and Zithromax. #2. Gram-negative bacteremia, blood cultures showed gram-negative bacilli in 2 different cultures from 01/04/2022, current coverage is with cefepime #3. Acute on chronic hypoxic respiratory failure related to the above, currently on 4 L of oxygen, normally wears 2 L of oxygen on a regular basis #4. Moderately severe COPD with a baseline FEV1 of 62% of predicted, on pre dnisone 5 mg daily and home oxygen at 2 L #5. New-onset A. fib with RVR, currently better controlled, cardiology is following. #6. Acute leukocytosis related to acute community acquired pneumonia, improving #7. Hyperlipidemia #8. Hypertension #9. Right lower extremity wound #10. Thoracic scoliosis/kyphosis Plan: Continue current antibiotics Continue breathing treatments Follow-up chest x-ray has been reviewed showing mild CHF, patient received a dose of IV Lasix Maintain safety precautions We'll follow the results of the blood cultures ID service recommendations We'll continue to follow patient's clinical course I have personally seen and examined the patient and reviewed the documentation. I performed a joint evaluation with the nurse practitioner in this evaluation was done more than 20 minutes. I fully agree with the documentation above and the plan of care. Time with Patient: Less than 30
--- NOTE | 2022-01-07 15:40 | P.PN ---
Subjective Progress Note Date: 01/07/22 Principal diagnosis: Sepsis with gram-negative bacteremia Left lower lobe pneumonia multifocal atrial tachycardia Patient seen and evaluated at bedside. Sitter is at bedside for patient safety. Patient is sleeping, easily arousable. She is alert. She appears to be pleasantly confused. She denies any difficulty breathing, chest pain, palpitations, cough, headache, dizziness, lightheadedness, abdominal pain, nausea, vomiting. Her white blood cell count is trending down. She is on IV antibiotics. Objective - Vital Signs Vital signs: Vital Signs Temp 98.3 F 01/07/22 12:40 Pulse 84 01/07/22 12:40 Resp 20 01/07/22 12:40 BP 100/50 01/07/22 12:40 Pulse Ox 93 L 01/07/22 12:40 Intake & Output 01/06/22 01/07/22 01/07/22 18:59 06:59 18:59 Intake Total 100 960 Balance 100 960 Weight 36.287 kg Intake: Intake, IV Titration 50 Amount Cefepime 1 gm In Sodium 50 Chloride 0.9% 50 ml @ 12. 5 mls/hr IVPB Q12HR [facility] Rx#:[id number] Oral 50 960 Other: Voiding Method Bedside Commode Bedside Commode Bedside Commode # Voids 1 # Bowel Movements 1 - Exam Constitutional: Sleeping, easily arousable, no acute respiratory distress Eyes: Anicteric sclerae, moist conjunctiva, no lid-lag PERRLA ENMT: NC/AT Oropharynx clear, no erythema, exudates Neck: Supple, FROM, no masses, or JVD No carotid bruits No thyromegaly Lungs: Bilaterally diminished Clear to percussion Normal respiratory effort, no accessory muscle use Cardiovascular: Heart regular in rate and rhythm, No murmurs, gallops, or rubs No peripheral edema Abdominal: Soft Nontender, no guarding, rebound or rigidity Abdomen moving with respiration Normoactive bowel sounds No hepatomegaly, No splenomegaly No palpable mass No abdominal wall hernia noted Skin: Normal temperature, tone, texture, turgor No induration No subcutaneous nodules No rash, lesions No ulcers Extremities: No digital cyanosis No clubbing Pedal pulses intact and symmetrical Radial pulses intact and symmetrical Normal gait and station No calf tenderness Psychiatric: Alert, oriented to self and place not to time Neuro: Muscles Strength 5/5 in all 4 extremities Sensation to light touch grossly present throughout Cranial nerves II-XII grossly intact No focal sensory deficits - Labs CBC & Chem 7: 01/07/22 10:25 01/07/22 10:25 Labs: Abnormal Lab Results - Last 24 Hours (Table) 01/07/22 01/07/22 Range/Units 10:25 10:25 WBC 13.4 H (3.8-10.6) k/uL RBC 3.20 L (3.80-5.40) m/uL Hgb 10.0 L (11.4-16.0) gm/dL Hct 32.0 L (34.0-46.0) % Chloride 110 H (98-107) mmol/L BUN 41 H (7-17) mg/dL Creatinine 1.24 H (0.52-1.04) mg/dL Glucose 225 H (74-99) mg/dL Calcium 7.8 L (8.4-10.2) mg/dL Magnesium 2.6 H (1.6-2.3) mg/dL Alkaline Phosphatase 163 H (38-126) U/L Total Protein 5.1 L (6.3-8.2) g/dL Albumin 2.7 L (3.5-5.0) g/dL Microbiology - Last 24 Hours (Table) 01/06/22 07:47 Blood Culture - Preliminary Blood No Growth after 24 hours Assessment and Plan Assessment: Assessment and Plan #1 sepsis with gram-negative bacteremia - Likely source left lower extremity wound, left lower lobe pneumonia -Continue IV cefepime -WBC improving - Most recent blood culture preliminary result showing no growth at 24 hours - Infectious disease is following #2 community-acquired pneumonia - On IV cefepime #3 metabolic encephalopathy - Likely secondary to current infectious process - Check computed tomography scan of the head to exclude acute intracranial abnormality - Check venous ammonia levels #4 multifocal atrial tachycardia -Cardiology involving - Per cardiology, on oral Cardizem and metoprolol #5 elevated troponin - Secondary to #4 - Cardiology has seen the patient #6 acute on chronic hypoxic respiratory failure secondary to COPD - Pulmonology consulted. - On DuoNeb breathing treatments. Continue Symbicort inhaler. - On by mouth prednisone. #7 hypertension - Continue to monitor BP. Continue antihypertensives as ordered. #8 chronic healing wound right lower extremity - Wound care consulted for dressing changes DVT prophylaxis with subcutaneous Lovenox CODE STATUS is full code PTOT, discharge planning for possible placement. Time with Patient: Greater than 30 (More than 50% of the time was spent in counseling and care coordination)
--- NOTE | 2022-01-07 16:56 | P.PN ---
Subjective Progress Note Date: 01/07/22 Principal diagnosis: Gram-negative bacteremia Patient is 86-year female with multiple comorbidities presented to hospital with a fever tachycardia has been complaining of some shortness of breath and cough and did have evidence of gram-negative bacteremia. On today's evaluation that is 01/07/2022 the patient remains to be afebrile, the patient is slightly lethargic today and out of it a good historian, patient did have a CT of the brain completed no evidence of any bleed no vomiting diarrhea or any other changes reported by the nursing staff Objective - Vital Signs Vital signs: Vital Signs Temp 98.3 F 01/07/22 12:40 Pulse 84 01/07/22 12:40 Resp 20 01/07/22 12:40 BP 100/50 01/07/22 12:40 Pulse Ox 93 L 01/07/22 12:40 Intake & Output 01/06/22 01/07/22 01/07/22 18:59 06:59 18:59 Intake Total 100 960 Balance 100 960 Weight 36.287 kg Intake: Intake, IV Titration 50 Amount Cefepime 1 gm In Sodium 50 Chloride 0.9% 50 ml @ 12. 5 mls/hr IVPB Q12HR [facility] Rx#:[id number] Oral 50 960 Other: Voiding Method Bedside Commode Bedside Commode Bedside Commode # Voids 1 # Bowel Movements 1 - Exam GENERAL DESCRIPTION: Elderly female lying in bed, no distress. No tachypnea or accessory muscle of respiration use. LUNGS: Unlabored breathing. Decreased breath sound the base HEART: S1, S2, regular rate and rhythm. No loud murmur ABDOMEN: Soft, no tenderness , guarding or rigidity, no organomegaly EXTREMITIES: No edema of feet. - Labs CBC & Chem 7: 01/07/22 10:25 01/07/22 10:25 Labs: Abnormal Lab Results - Last 24 Hours (Table) 01/07/22 01/07/22 Range/Units 10:25 10:25 WBC 13.4 H (3.8-10.6) k/uL RBC 3.20 L (3.80-5.40) m/uL Hgb 10.0 L (11.4-16.0) gm/dL Hct 32.0 L (34.0-46.0) % Chloride 110 H (98-107) mmol/L BUN 41 H (7-17) mg/dL Creatinine 1.24 H (0.52-1.04) mg/dL Glucose 225 H (74-99) mg/dL Calcium 7.8 L (8.4-10.2) mg/dL Magnesium 2.6 H (1.6-2.3) mg/dL Alkaline Phosphatase 163 H (38-126) U/L Total Protein 5.1 L (6.3-8.2) g/dL Albumin 2.7 L (3.5-5.0) g/dL Microbiology - Last 24 Hours (Table) 01/06/22 07:47 Blood Culture - Preliminary Blood No Growth after 24 hours Assessment and Plan (1) Bacteremia Current Visit: Yes Status: Acute Code(s): R78.81 - BACTEREMIA SNOMED Code(s): 0217295 Plan: 1patient with gram-negative bacteremia source likely pneumonia, ID and sensitivity are still pending, patient fever has responded to cefepime which will be continued and the white count is trending down as well repeat blood cultures so far negative Time with Patient: Less than 30
[2022-01-07] MEDS: ATORVASTATIN 20 MG TAB PO SCH (20:26)
[2022-01-07] MEDS: MIRTAZAPINE 15 MG TAB PO SCH (20:26)
[2022-01-08] MEDS: IPRATROPIUM-ALBUTEROL 3 ML NEB INHALATION SCH ×4 (08:12→19:38)
[2022-01-08] MEDS: SYMBICORT 160-4.5 MCG INHALER INHALATION SCH ×2 (08:13→19:38)
--- NOTE | 2022-01-08 08:21 | XR ---
EXAMINATION TYPE: XR chest 1V portable DATE OF EXAM: 01/08/2022 CLINICAL HISTORY: Difficulty breathing and pneumonia progress study. TECHNIQUE: Single AP portable upright view of the chest is obtained. COMPARISON: Chest x-ray from 2 days earlier FINDINGS: Background chronic parenchymal changes. Persistent left basilar opacity and small left pleu ral effusion. New right basilar opacity. Stable mild cardiomegaly and atherosclerotic thoracic aorta. Osseous structures remain demineralized. IMPRESSION: Chronic parenchymal changes and mild cardiomegaly with persistent small left pleural effu renay and associated left basilar acute infiltrate and/or atelectasis. New right basilar acute infiltr ate and/or atelectasis and suspected tiny right pleural effusion.
--- NOTE | 2022-01-08 08:22 | CDI ---
Documentation Clarification Form Date: 01/08/2022 08:10:02 AM From: Shamika Rose CCS, CCDS Admit Date: 01/04/2022 03:37:00 PM Patient Name: Marni Navarro Visit Number: [id number] Discharge Date: ATTENTION: The Clinical Documentation Specialists (CDI) and [facility] Coding Staff appreciate your assistance in clarifying documentation. Please respond to the clarification below the line at the bottom and electronically sign. The CDI & [facility] Coding staff will review the response and follow-up if needed. Please note: Queries are made part of the Legal Health Record. If you have any questions, please contact the author of this message via ITS. Dr. Tutu Allen: CHF is documented in the 01/06 & 01/07 Pulmonary Progress Notes per the follow-up chest x-ray. CHF is not documented by Cardiology who was consulted for atrial fibrillation/tachycardia. Additional information regarding the Type & Acuity of CHF is requested. History/Risk Factors per the 01/04 H/P: COPD on 2L home O2 atc, Hypertension, Hyperlipidemia, Chronic healing wound of the left lower extremity. Clinical Indicators: Presented to the ED on 01/04 via EMS with weakness, fever and tachycardia. Admit with New Onset Atrial Fibrillation and Pneumonia. 01/04 VS: T 100.3, P 120, R 18 - 24 (sob), BP 144/91, PO 97 2Lnc, BMI: 15.6 01/05 BNP: 3790 01/04 CXR: LLL Infiltrate and/or atelectasis, density right perihilar region. 01/05 CXR: Borderline heart size & COPD. Worsening airspace disease left mid & lower lung. Possible pleural effusion. 01/06 CXR: Evidence of some mild heart failure. Left Lower Lobe Pneumonia and Atelectasis & pleural fluid. 01/05 ECHO: Left ventricular systolic function is normal w/EF 55-60%, Mild MR, Mild TR, Mild pulmonary hypertension, Small, generalized pericardial effusion. Treatment 01/04: Telemetry, Incentive Spirometry, Sputum Culture, O2 2Lnc, IV Na Cl 1000 mls/hr q35M, IV Rocephin 1,000 mg x2, IV Azithromycin 250 mls/hr x1, IV Heparin drip, INH Duoneb QID/prn, IV Cardizem Drip Bolus x1, IV Cardizem 5 mls/hr q24H 01/06 IV Lasix 40 mg x1 In your professional opinion, can you please clarify the Acuity & Type of CHF if known? [ ] Acute Diastolic Heart Failure [ ] Chronic Diastolic Heart Failure [ ] Acute on Chronic Diastolic Heart Failure [ ] Heart Failure is ruled out [ ] Other, please specify: [ x ] Unable to determine (Template Last Revised: November 2020) MTDD
[2022-01-08] MEDS: CEFEPIME 1 GM in SODIUM CHLORIDE 0.9% 50 ML IVPB SCH ×2 (09:50→21:51)
--- NOTE | 2022-01-08 10:04 | P.PN ---
Subjective 86-year-old female with multiple comorbidities, admitted with sepsis secondary to gram-negative bacteremia and respiratory distress. She does have history of COPD and uses 2 L oxygen at home. Patient seen and examined at bedside this morning. She continues to remain afebrile. Most recent blood cultures have been negative so far. She continues to be on IV cefepime for gram-negative bacteremia on initial blood cultures and left lower lobe pneumonia. Chest x-ray yesterday shows new right lower lobe infiltrates. I also reviewed her computed tomography scan of the head which did not show any acute intracranial abnormality. Venous ammonia levels are WNL. She is being followed by pulmonology, cardiology and infectious disease services. She was on 6 L of oxygen, and was saturating 97%. I have decreased her supplemental oxygen to 4 L with instructions to respiratory therapy to continue decreasing as to maintain O2 sats between 88 and 92%. Patient is sleepy, arousable with verbal stimuli. Her blood pressure and heart rate are st able. Her medications have been reviewed. Reliable ROS could not be obtained due to patient's mentation. Objective - Vital Signs Vital signs: Vital Signs Temp 98.8 F 01/08/22 04:00 Pulse 68 01/08/22 08:27 Resp 21 01/08/22 04:00 BP 104/56 01/08/22 04:00 Pulse Ox 2 L 01/08/22 08:13 Intake & Output 01/07/22 01/08/22 01/08/22 18:59 06:59 18:59 Intake Total 2650 290 Output Total 500 Balance 2150 290 Intake: Intake, IV Titration 50 Amount Cefepime 1 gm In Sodium 50 Chloride 0.9% 50 ml @ 12. 5 mls/hr IVPB Q12HR [facility] Rx#:[id number] Oral 2650 240 Output: Urine 500 Other: Voiding Method Bedside Commode Bedside Commode # Voids 1 3 # Bowel Movements 1 - Exam Constitutional: Sleeping, easily arousable, on supplemental oxygen HEENT: Pupils equally reactive to light, atraumatic, normocephalic. Lungs: Bilaterally diminished air entry Cardiovascular: RRR, S1-S2 normal, no murmur, no peripheral edema Abdominal: Soft, nontender, no guarding, rebound or rigidity Extremities: No cyanosis or clubbing Neuro: Moves all 4 extremities, alert, not oriented to time, oriented to place and self - Labs CBC & Chem 7: 01/07/22 10:25 01/07/22 10:25 Labs: Abnormal Lab Results - Last 24 Hours (Table) 01/07/22 01/07/22 01/07/22 Range/Units 10:25 10:25 10:25 WBC 13.4 H (3.8-10.6) k/uL RBC 3.20 L (3.80-5.40) m/uL Hgb 10.0 L (11.4-16.0) gm/dL Hct 32.0 L (34.0-46.0) % Chloride 110 H (98-107) mmol/L BUN 41 H (7-17) mg/dL Creatinine 1.24 H (0.52-1.04) mg/dL Glucose 225 H (74-99) mg/dL Calcium 7.8 L (8.4-10.2) mg/dL Magnesium 2.6 H (1.6-2.3) mg/dL Alkaline Phosphatase 163 H (38-126) U/L Total Protein 5.1 L (6.3-8.2) g/dL Albumin 2.7 L (3.5-5.0) g/dL Procalcitonin 5.15 H (0.02-0.09) ng/mL Microbiology - Last 24 Hours (Table) 01/06/22 07:47 Blood Culture - Preliminary Blood No Growth after 24 hours Assessment and Plan Assessment: Assessment and Plan #1 sepsis with gram-negative bacteremia - Likely source left lower extremity wound, left lower lobe pneumonia -Continue IV cefepime -WBC improving, continue monitoring CBC - Most recent blood culture preliminary result showing no growth at 24 hours - Infectious disease is following #2 community-acquired pneumonia - On IV cefepime #3 metabolic encephalopathy - Likely secondary to current infectious process - Check computed tomography scan of the head to exclude acute intracranial abnormality - Check venous ammonia levels #4 multifocal atrial tachycardia -Cardiology involved in care - Per cardiology, on oral Cardizem and metoprolol - Echocardiogram shows preserved EF with no diastolic dysfunction, mild pulmonary hypertension #5 elevated troponin - Secondary to #4 - Cardiology has seen the patient. No interventions recommended at this time #6 acute on chronic hypoxic respiratory failure secondary to COPD exacerbation - Pulmonology consulted and following -On supplemental oxygen, titrate to maintain O2 sats between 80-92%. Discussed with RT - On DuoNeb breathing treatments. Continue Symbicort inhaler. - On prednisone #7 hypertension - Continue to monitor BP. Continue antihypertensives as ordered. #8 chronic healing wound right lower extremity - Wound care consulted for dressing changes DVT prophylaxis with subcutaneous Lovenox CODE STATUS is full code PTOT, discharge planning for possible placement. Time with Patient: Greater than 30
[2022-01-08 10:59] LABS: Basophils # (A) 0.2 k/uL (0-0.2); Basophils % (A) 1 %; Eosinophils % (A) 0 %; HCT 33.5 % (34.0-46.0); HGB 9.8 gm/dL (11.4-16.0); Hypochromasia Marked; Lymphocytes # (A) 0.5 k/uL (1.0-4.8); Lymphocytes % (A) 3 %; MCH 31.2 pg (25.0-35.0); MCHC 29.4 g/dL (31.0-37.0); MCV 106.2 fL (80.0-100.0); Macrocytosis Moderate; Mean Platelet Volume 9.6; Monocytes # (A) 1.8 k/uL (0-1.0); Monocytes % (A) 11 %; Neutrophils # (A) 13.3 k/uL (1.3-7.7); Neutrophils % (A) 82 %; Platelet Count 265 k/uL (150-450); RBC 3.15 m/uL (3.80-5.40); RDW 13.7 % (11.5-15.5); WBC 16.1 k/uL (3.8-10.6)
[2022-01-08 11:02] LABS: Calcium 8.6 mg/dL (8.4-10.2); Potassium 4.7 mmol/L (3.5-5.1)
[2022-01-08] MEDS: DILTIAZEM ORAL 60 MG TAB PO SCH ×3 (11:34→21:51)
[2022-01-08] MEDS: METOPROLOL TARTRATE 50 MG TAB PO SCH ×2 (11:35→21:51)
[2022-01-08] MEDS: predniSONE 20 MG TAB PO SCH (11:35)
[2022-01-08] MEDS: ENOXAPARIN 30 MG/0.3 ML SYRINGE SQ SCH (11:35)
[2022-01-08] MEDS: SODIUM CHLORIDE 0.9% 1,000 ML IV SCH (12:52)
--- NOTE | 2022-01-08 14:22 | P.PN ---
Subjective Progress Note Date: 01/08/22 86-year-old female patient with known history of COPD with an FEV1 of 62% of predicted and diffusion capacity of 36% of predicted maintained on home O2 and maintain also on Breo one inhalation a day in addition to Combivent rescue inhaler on an as-needed basis, followed up in our office regarding her chronic COPD. The patient also has multiple other medical problems and comorbidities including chronic atrial fibrillation and hyperlipidemia and osteoarthritis and hypertension. Her last evaluation with us in the office was in July 2021. The patient came into the emergency department yesterday for multiple complaints. She was feeling weak, she was feeling terrible. She was having back pain. And the patient was also having fever and tachycardia. Her home care nurse while wrapping her legs noticed that the patient was having some fever and tachycardia. Infection was obviously a concern. The patient denied having any shortness of breath above and beyond her baseline. She denied having any chest pain or palpitations. No nausea. No vomiting. No diarrhea. No abdominal pain. No dysuria frequency or urgency. In the ED, the patient was found to have a fever of 100.4, tachycardic with a heart rate of 118 irregular consistent with atrial fibrillation. BP was adequate and the patient's pulse ox was 98% on 2 L of oxygen by nasal cannula. Chest x-ray was concerning for left lower lobe pneumonia . White cell count is at 24.0 with a hemoglobin of 11.7 and the patient also has a platelet count of 265. The sodium is at 139 with a potassium level of 3.2, BUN is at 22 with a creatinine of 0.7, troponin times. Been negative at 0.03, her alkaline phosphatase was 191, AST was 32, ALT was 26, electrolytes show a potassium level of 3.2, and the influenza screen was negative, COVID 19 testing was negativeOn 01/06/2022 patient seen in follow-up on selective care unit, she is awake and alert, at times she is confused, she is answering questions appropriately right now, she does have a health and safety instructor at the bedside. She is feeding herself lunch, she has a good appetite, she states her breathing is improving, she is not coughing up any phlegm. She has not been able to produce a sputum for culture, remains on cefepime for left lower lung pneumonia. On 4 l/min with a pulse ox of 94%. Afebrile overnight On the 01/06/2022 patient seen in follow-up on selective care unit, she is awake and alert, in no acute distress, breathing comfortable, on 4 L of oxygen patient is satting 94%, no fever or chills, vital signs have been stable, she is intermittent confused, but not agitated, health and safety instructor is at the bedside. No worsening dyspnea or cough, lung sounds are diminished, no rhonchi or wheezing. Here she remains on cefepime, she is not producing any phlegm, we have not been able to collect a sputum culture, but clinically patient states she is feeling better, no hemoptysis no chest discomfort. On 01/07/2022 patient seen in follow-up on [facility] care [facility], she is resting comfortably in bed, sleeping, easily arouses, denies any acute distress, remains on 4 L of oxygen with a pulse ox of 97%, no fever or chills, no complaints of chest discomfort, no hemoptysis. Remains on cefepime for left lower lobe pneumonia, and gram-negative bacteremia, final blood cultures are pending, follow-up blood cultures have been sent showing no growth at the 24-hour jose. White blood cell count is 13.4, hemoglobin is 10, sodium is 140, potassium is 4.1, chloride is 110, CO2 is 24, BUN is 41, creatinine is 1.24. Pro-calcitonin level was 7.55. Follow-up chest x-ray showed evidence of some mild heart failure and patient received a dose of Lasix. Patient has been confused, health and safety instructor the bedside. Briefly CT showed no acute intracranial hemorrhage or midline shift On 01/08/2022 patient seen in follow-up on [facility] care [facility], she is breathing comfortably, does not appear to be any acute distress, currently on 8 L of oxygen pulse ox is 94%, she is lethargic, she had received a dose of Haldol. She remains on Cefepime for empiric antibiotic coverage for acute community acquired pneumonia. Follow-up chest x-ray today shows chronic parenchymal changes and mild cardiomegaly with persistent small left pleural effusion and associated left basilar infiltrate or atelectasis area there is a new right basilar acute infiltrate and suspected tiny right pleural effusion. Patient had a elevated pro-calcitonin level of 0.56. Today's white count is up slightly at 16.1, h emoglobin is 9.8, sodium is 143, potassium is 4.7, chloride is 109, BUN is 50 creatinine is 1.36. Ammonia level is less than 9, alk phos was elevated to 163 on yesterday's lab, AST and ALT were within normal limits. Clinically patient has been sedated, and has not had a very good oral intake. Her labs suggest prerenal state, dehydration, acute kidney injury. Her pro-calcitonin level is improving however still elevated at 5.15 down from 7.55 initially. Blood cultures were positive for Pseudomonas Stutzeri, sensitive to cefepime. Vancomycin has been discontinued. Objective - Vital Signs Vital signs: Vital Signs Temp 98.2 F 01/08/22 11:30 Pulse 80 01/08/22 11:30 Resp 18 01/08/22 11:30 BP 102/40 01/08/22 11:30 Pulse Ox 94 L 01/08/22 11:30 Intake & Output 01/07/22 01/08/22 01/08/22 18:59 06:59 18:59 Intake Total 2650 290 Output Total 500 Balance 2150 290 Weight 36.287 kg Intake: Intake, IV Titration 50 Amount Cefepime 1 gm In Sodium 50 Chloride 0.9% 50 ml @ 12. 5 mls/hr IVPB Q12HR [facility] Rx#:[id number] Oral 2650 240 Output: Urine 500 Other: Voiding Method Bedside Commode Bedside Commode Bedside Commode # Voids 1 3 # Bowel Movements 1 - Exam GENERAL EXAM: lethargic, but easily arousable 86-year-old white female, chronically ill-looking, but appears to be no acute distress, 8 L of oxygen pulse ox of 94% comfortable in no apparent distress. HEAD: Normocephalic/atraumatic. EYES: Normal reaction of pupils, equal size. Conjunctiva pink, sclera white. NOSE: Clear with pink turbinates. THROAT: No erythema or exudates. NECK: No masses, no JVD, no thyroid enlargement, no adenopathy. CHEST: No chest wall deformity. Symmetrical expansion. LUNGS: Equal air entry with diminished breath sounds bilaterally CVS: Regular rate and rhythm, normal S1 and S2, no gallops, no murmurs, no rubs ABDOMEN: Soft, nontender. No hepatosplenomegaly, normal bowel sounds, no guarding or rigidity. EXTREMITIES: No clubbing, no edema, no cyanosis, 2+ pulses and upper and lower extremities. MUSCULOSKELETAL: Muscle strength and tone normal. SPINE: No scoliosis or deformity SKIN: No rashes CENTRAL NERVOUS SYSTEM: Lethargic, but easily arousable No focal deficits, tone is normal in all 4 extremities. - Labs CBC & Chem 7: 01/08/22 06:56 01/08/22 06:56 Labs: Abnormal Lab Results - Last 24 Hours (Table) 01/07/22 01/08/22 01/08/22 Range/Units 10:25 06:56 06:56 WBC 16.1 H (3.8-10.6) k/uL RBC 3.15 L (3.80-5.40) m/uL Hgb 9.8 L (11.4-16.0) gm/dL Hct 33.5 L (34.0-46.0) % MCV 106.2 H D (80.0-100.0) fL MCHC 29.4 L (31.0-37.0) g/dL Neutrophils # 13.3 H (1.3-7.7) k/uL Lymphocytes # 0.5 L (1.0-4.8) k/uL Monocytes # 1.8 H (0-1.0) k/uL Chloride 109 H (98-107) mmol/L BUN 50 H (7-17) mg/dL Creatinine 1.36 H (0.52-1.04) mg/dL Glucose 136 H (74-99) mg/dL Procalcitonin 5.15 H (0.02-0.09) ng/mL Microbiology - Last 24 Hours (Table) 01/07/22 10:25 Blood Culture - Preliminary Blood No Growth after 24 hours 01/04/22 13:20 Blood Culture Gram Stain - Final Blood Blood Culture - Final Pseudomonas stutzeri 01/04/22 13:05 Blood Culture Gram Stain - Final Blood Blood Culture - Final Pseudomonas stutzeri 01/06/22 07:47 Blood Culture - Preliminary Blood No Growth after 48 hours Assessment and Plan Plan: Assessment: #1. Acute left lower lobe pneumonia, chest x-ray shows a dense consolidation of the left lower lobe, patient is currently on cefepime, and initial treatment was with Rocephin and Zithromax. #2. Pseudomonal bacteremia, blood cultures showed gram-negative bacilli in 2 different cultures from 01/04/2022, current coverage is with cefepime, blood cultures showed Pseudomonas stutzeri, sensitive to cefepime #3. Acute on chronic hypoxic respiratory failure related to the above, currently on 4 L of oxygen, normally wears 2 L of oxygen on a regular basis #4. Moderately severe COPD with a baseline FEV1 of 62% of predicted, on prednisone 5 mg daily and home oxygen at 2 L #5. New-onset A. fib with RVR, currently better controlled, cardiology is following. #6. Acute leukocytosis related to acute community acquired pneumonia, improving #7. Hyperlipidemia #8. Hypertension #9. Right lower extremity wound #10. Thoracic scoliosis/kyphosis #11. Acute metabolic encephalopathy, altered mental status related to sepsis Plan: Final blood cultures have been noted Patient remains on cefepime, vancomycin discontinued Maintain aspiration precautions Patient is lethargic and confused Oral intake is poor Seems dehydrated We will add IV fluids with 0.9 at 75 ML per hour Previous echocardiogram showed preserved LV function We'll continue following blood work including CBC, CMP and pro-calcitonin level tomorrow We'll continue to follow patient's clinical course I have personally seen and examined the patient and reviewed the documentation. I performed a joint evaluation with the nurse practitioner in this evaluation was done more than 20 minutes. I fully agree with the documentation above and the plan of care.. In summary, the patient has pseudomonal bacteremia and the patient was also treated for left lung pneumonia. The likely diagnosis an acute pseudomonal pneumonia with secondary bacteremia and sepsis. The patient currently is on IV cefepime. Vancomycin has been discontinued. The follow-up chest x-ray today is showing also developed a bilateral pleural effusions. She is known to have moderate to severe COPD her echocardiogram also showed preserved LV function with an EF around 55-60%. We'll continue following the patient's clinical course. Given a dose of Lasix 40 mg IV push. Repeat chest x-ray in the morning. We'll continue to follow. Time with Patient: Less than 30
--- NOTE | 2022-01-08 15:49 | P.PN ---
Subjective Progress Note Date: 01/08/22 Principal diagnosis: Gram-negative bacteremia Patient is 86-year female with multiple comorbidities presented to hospital with a fever tachycardia has been complaining of some shortness of breath and cough and did have evidence of gram-negative bacteremia. On today's evaluation that is 01/08/2022 the patient continues to be afebrile, the patient is lethargic today and did not provide any history , patient is breathing comfortable on nasal oxygen no vomiting diarrhea or any other changes reported Objective - Vital Signs Vital signs: Vital Signs Temp 98.2 F 01/08/22 11:30 Pulse 80 01/08/22 11:30 Resp 18 01/08/22 11:30 BP 102/40 01/08/22 11:30 Pulse Ox 94 L 01/08/22 11:30 Intake & Output 01/07/22 01/08/22 01/08/22 18:59 06:59 18:59 Intake Total 2650 290 Output Total 500 Balance 2150 290 Weight 36.287 kg Intake: Intake, IV Titration 50 Amount Cefepime 1 gm In Sodium 50 Chloride 0.9% 50 ml @ 12. 5 mls/hr IVPB Q12HR [facility] Rx#:[id number] Oral 2650 240 Output: Urine 500 Other: Voiding Method Bedside Commode Bedside Commode Bedside Commode # Voids 1 3 2 # Bowel Movements 1 - Exam GENERAL DESCRIPTION: Elderly female lying in bed, no distress. No tachypnea or accessory muscle of respiration use. LUNGS: Unlabored breathing. Decreased breath sound the base HEART: S1, S2, regular rate and rhythm. No loud murmur ABDOMEN: Soft, no tenderness , guarding or rigidity, no organomegaly EXTREMITIES: No edema of feet. - Labs CBC & Chem 7: 01/08/22 06:56 01/08/22 06:56 Labs: Abnormal Lab Results - Last 24 Hours (Table) 01/07/22 01/08/22 01/08/22 Range/Units 10:25 06:56 06:56 WBC 16.1 H (3.8-10.6) k/uL RBC 3.15 L (3.80-5.40) m/uL Hgb 9.8 L (11.4-16.0) gm/dL Hct 33.5 L (34.0-46.0) % MCV 106.2 H D (80.0-100.0) fL MCHC 29.4 L (31.0-37.0) g/dL Neutrophils # 13.3 H (1.3-7.7) k/uL Lymphocytes # 0.5 L (1.0-4.8) k/uL Monocytes # 1.8 H (0-1.0) k/uL Chloride 109 H (98-107) mmol/L BUN 50 H (7-17) mg/dL Creatinine 1.36 H (0.52-1.04) mg/dL Glucose 136 H (74-99) mg/dL Procalcitonin 5.15 H (0.02-0.09) ng/mL Microbiology - Last 24 Hours (Table) 01/07/22 10:25 Blood Culture - Preliminary Blood No Growth after 24 hours 01/04/22 13:20 Blood Culture Gram Stain - Final Blood Blood Culture - Final Pseudomonas stutzeri 01/04/22 13:05 Blood Culture Gram Stain - Final Blood Blood Culture - Final Pseudomonas stutzeri 01/06/22 07:47 Blood Culture - Preliminary Blood No Growth after 48 hours Assessment and Plan (1) Bacteremia Current Visit: Yes Status: Acute Code(s): R78.81 - BACTEREMIA SNOMED Code(s): 8415801 Plan: 1patient with Pseudomonas bacteremia source likely pneumonia, patient to continue with the cefepime, repeat cultures have been negative so far and monitor clinical course closely Time with Patient: Less than 30
[2022-01-08] MEDS ORDERED: FUROSEMIDE 10 MG/ML 4 ML VIAL IV STA (16:42)
[2022-01-08] MEDS: ATORVASTATIN 20 MG TAB PO SCH (21:51)
[2022-01-08] MEDS: MIRTAZAPINE 15 MG TAB PO SCH (21:51)
[2022-01-08] MEDS ORDERED: HYDROmorphone 0.5 MG/0.5 ML SYRINGE IVP PRN (22:07)
[2022-01-08] MEDS: LORazepam 2 MG/ML INJ IV PRN (22:19)
[2022-01-09] MEDS ORDERED: ATROPINE OPHTH SOLN 1% 5ML BTL SUBLINGUAL PRN
[2022-01-09] MEDS ORDERED: ARTIFICIAL TEARS-HYPROMELLOSE DROPS 15 ML BTL BOTH EYES PRN
[2022-01-09] MEDS: LORazepam 2 MG/ML INJ IV PRN ×3 (02:01→10:50)
[2022-01-09] MEDS: SODIUM CHLORIDE 0.9% 1,000 ML IV SCH (05:54)
--- NOTE | 2022-01-09 07:17 | XR ---
EXAMINATION TYPE: XR chest 1V portable DATE OF EXAM: 01/09/2022 CLINICAL HISTORY: Cough and pneumonia progress study. TECHNIQUE: Single AP portable upright view of the chest is obtained. COMPARISON: Chest x-ray from one day earlier and older studies FINDINGS: Background chronic parenchymal changes. Persistent bibasilar opacities. Stable cardiomegal y and atherosclerotic thoracic aorta. Osseous structures remain demineralized. IMPRESSION: Chronic parenchymal changes and mild cardiomegaly with persistent small left greater than right pleural effusions and associated bibasilar acute infiltrate and/or atelectasis. No significant change from one day earlier.
[2022-01-09 08:25] LABS: Basophils # (A) 0.1 k/uL (0-0.2); Basophils % (A) 1 %; Eosinophils % (A) 0 %; HCT 32.5 % (34.0-46.0); HGB 10.1 gm/dL (11.4-16.0); Hypochromasia Slight; Lymphocytes # (A) 0.8 k/uL (1.0-4.8); Lymphocytes % (A) 6 %; MCH 30.7 pg (25.0-35.0); Mean Platelet Volume 9.3; Monocytes # (A) 1.2 k/uL (0-1.0); Monocytes % (A) 9 %; Neutrophils # (A) 10.5 k/uL (1.3-7.7); Neutrophils % (A) 82 %; Platelet Count 306 k/uL (150-450); RBC 3.28 m/uL (3.80-5.40); RDW 14.5 % (11.5-15.5); WBC 12.8 k/uL (3.8-10.6)
[2022-01-09 08:27] LABS: Calcium 8.6 mg/dL (8.4-10.2); Potassium 4.2 mmol/L (3.5-5.1)
[2022-01-09] MEDS: IPRATROPIUM-ALBUTEROL 3 ML NEB INHALATION SCH ×4 (08:42→19:45)
[2022-01-09] MEDS: SYMBICORT 160-4.5 MCG INHALER INHALATION SCH ×2 (08:42→19:45)
[2022-01-09] MEDS ORDERED: DRY MOUTH SPRAY 44.3 SPRAY/44.3 ML SPRAY MUCOUS MEM PRN (09:00)
[2022-01-09] MEDS: CEFEPIME 1 GM in SODIUM CHLORIDE 0.9% 50 ML IVPB SCH ×2 (09:17→20:20)
[2022-01-09] MEDS: ENOXAPARIN 30 MG/0.3 ML SYRINGE SQ SCH (09:18)
[2022-01-09] MEDS ORDERED: FUROSEMIDE 10 MG/ML 4 ML VIAL IV STA (10:11)
[2022-01-09 11:56] VITALS: BP 83/51; TEMP 97.7
[2022-01-09] MEDS ORDERED: ACETAMINOPHEN SUPPOSITORY 650 MG SUPP RECTAL PRN (12:11)
[2022-01-09] MEDS ORDERED: ONDANSETRON 4 MG/2 ML VIAL IVP PRN (12:11)
[2022-01-09] MEDS ORDERED: MORPHINE SULFATE (100 MG/2 ML) 100 MG in SODIUM CHLORIDE 0.9% 100 ML IV SCH (12:15)
[2022-01-09] MEDS: DILTIAZEM ORAL 60 MG TAB PO SCH ×3 (12:55→20:21)
[2022-01-09] MEDS: predniSONE 20 MG TAB PO SCH (12:55)
[2022-01-09] MEDS: METOPROLOL TARTRATE 50 MG TAB PO SCH ×2 (12:55→20:20)
--- NOTE | 2022-01-09 13:26 | P.PN ---
Subjective Progress Note Date: 01/09/22 86-year-old female patient with known history of COPD with an FEV1 of 62% of predicted and diffusion capacity of 36% of predicted maintained on home O2 and maintain also on Breo one inhalation a day in addition to Combivent rescue inhaler on an as-needed basis, followed up in our office regarding her chronic COPD. The patient also has multiple other medical problems and comorbidities including chronic atrial fibrillation and hyperlipidemia and osteoarthritis and hypertension. Her last evaluation with us in the office was in July 2021. The patient came into the emergency department yesterday for multiple complaints. She was feeling weak, she was feeling terrible. She was having back pain. And the patient was also having fever and tachycardia. Her home care nurse while wrapping her legs noticed that the patient was having some fever and tachycardia. Infection was obviously a concern. The patient denied having any shortness of breath above and beyond her baseline. She denied having any chest pain or palpitations. No nausea. No vomiting. No diarrhea. No abdominal pain. No dysuria frequency or urgency. In the ED, the patient was found to have a fever of 100.4, tachycardic with a heart rate of 118 irregular consistent with atrial fibrillation. BP was adequate and the patient's pulse ox was 98% on 2 L of oxygen by nasal cannula. Chest x-ray was concerning for left lower lobe pneumonia . White cell count is at 24.0 with a hemoglobin of 11.7 and the patient also has a platelet count of 265. The sodium is at 139 with a potassium level of 3.2, BUN is at 22 with a creatinine of 0.7, troponin times. Been negative at 0.03, her alkaline phosphatase was 191, AST was 32, ALT was 26, electrolytes show a potassium level of 3.2, and the influenza screen was negative, COVID 19 testing was negativeOn 01/06/2022 patient seen in follow-up on selective care unit, she is awake and alert, at times she is confused, she is answering questions appropriately right now, she does have a safety investigator at the bedside. She is feeding herself lunch, she has a good appetite, she states her breathing is improving, she is not coughing up any phlegm. She has not been able to produce a sputum for culture, remains on cefepime for left lower lung pneumonia. On 4 l/min with a pulse ox of 94%. Afebrile overnight On the 01/06/2022 patient seen in follow-up on selective care unit, she is awake and alert, in no acute distress, breathing comfortable, on 4 L of oxygen patient is satting 94%, no fever or chills, vital signs have been stable, she is intermittent confused, but not agitated, safety investigator is at the bedside. No worsening dyspnea or cough, lung sounds are diminished, no rhonchi or wheezing. Here she remains on cefepime, she is not producing any phlegm, we have not been able to collect a sputum culture, but clinically patient states she is feeling better, no hemoptysis no chest discomfort. On 01/07/2022 patient seen in follow-up on [facility] care unit, she is resting comfortably in bed, sleeping, easily arouses, denies any acute distress, remains on 4 L of oxygen with a pulse ox of 97%, no fever or chills, no complaints of chest discomfort, no hemoptysis. Remains on cefepime for left lower lobe pneumonia, and gram-negative bacteremia, final blood cultures are pending, follow-up blood cultures have been sent showing no growth at the 24-hour jose. White blood cell count is 13.4, hemoglobin is 10, sodium is 140, potassium is 4.1, chloride is 110, CO2 is 24, BUN is 41, creatinine is 1.24. Pro-calcitonin level was 7.55. Follow-up chest x-ray showed evidence of some mild heart failure and patient received a dose of Lasix. Patient has been confused, safety investigator the bedside. Briefly CT showed no acute intracranial hemorrhage or midline shift On 01/08/2022 patient seen in follow-up on [facility] care unit, she is breathing comfortably, does not appear to be any acute distress, currently on 8 L of oxygen pulse ox is 94%, she is lethargic, she had received a dose of Haldol. She remains on Cefepime for empiric antibiotic coverage for acute community acquired pneumonia. Follow-up chest x-ray today shows chronic parenchymal changes and mild cardiomegaly with persistent small left pleural effusion and associated left basilar infiltrate or atelectasis area there is a new right basilar acute infiltrate and suspected tiny right pleural effusion. Patient had a elevated pro-calcitonin level of 0.56. Today's white count is up slightly at 16.1, h emoglobin is 9.8, sodium is 143, potassium is 4.7, chloride is 109, BUN is 50 creatinine is 1.36. Ammonia level is less than 9, alk phos was elevated to 163 on yesterday's lab, AST and ALT were within normal limits. Clinically patient has been sedated, and has not had a very good oral intake. Her labs suggest prerenal state, dehydration, acute kidney injury. Her pro-calcitonin level is improving however still elevated at 5.15 down from 7.55 initially. Blood cultures were positive for Pseudomonas Stutzeri, sensitive to cefepime. Vancomycin has been discontinued. 01/09/2022, the patient is doing extremely poor. Mumbling. No morning. Not following any commands. The patient is not answering any questions. Breathing is labored.The patient remains on high flow oxygen at 15 L of oxygen by nasal cannula and the patient's pulse ox is around 84%. The patient is tachycardic and the patient remains on irregular rhythm consistent with atrial fibrillation. A repeat chest x-ray was done today and the patient continues to have significant abnormalities with bilateral lower lobe consolidation and effusions in the lung bases bilaterally along with chronic pleural parenchymal changes bilaterally. No significant changes compared to yesterday. The patient is known to have pseudomonal pneumonia and sepsis and the patient is still on IV cefepime for now. ID is on the case. Rest of the medications are essentially unchanged. She is unable to tolerate any diet. She is extremely weak. She is emaciated. Her white cell count is at 4.8 with hemoglobin of 10.1. The an assisted 3 with a creatinine of 1.1. She was given a dose of Lasix yesterday and the same will be done today. Discussed the case with the medical team. The patient is being considered for hospice care. Objective - Vital Signs Vital signs: Vital Signs Temp 97.7 F 01/09/22 11:55 Pulse 113 H 01/09/22 11:55 Resp 21 01/09/22 11:55 BP 83/51 01/09/22 11:55 Pulse Ox 84 L 01/09/22 11:55 Intake & Output 01/08/22 01/09/22 01/09/22 18:59 06:59 18:59 Intake Total 200 Output Total 1350 Balance -1150 Weight 36.287 kg Intake: Intake, IV Titration 200 Amount Sodium Chloride 0.9% 1, 200 000 ml @ 75 mls/hr IV . [id number] [facility] Rx#:[id number] Output: Urine 1350 Other: Voiding Method Bedside Commode External Catheter External Catheter # Voids 2 - Exam GENERAL EXAM: lethargic, but easily arousable 86-year-old white female, chronically ill-looking, but appears to be no acute distress, 15 L of oxygen pulse ox of 94%, patient is obviously having diminished level of consciousness, breathing is labored at this point, the patient is quite tachypneic. HEAD: Normocephalic/atraumatic. EYES: Normal reaction of pupils, equal size. Conjunctiva pink, sclera white. NOSE: Clear with pink turbinates. THROAT: No erythema or exudates. NECK: No masses, no JVD, no thyroid enlargement, no adenopathy. CHEST: No chest wall deformity. Symmetrical expansion. LUNGS: Equal air entry with diminished breath sounds bilaterally CVS: Irregular rate and rhythm, normal S1 and S2, no gallops, no murmurs, no rubs, the patient remains in atrial fibrillation. ABDOMEN: Soft, nontender. No hepatosplenomegaly, normal bowel sounds, no guarding or rigidity. EXTREMITIES: No clubbing, no edema, no cyanosis, 2+ pulses and upper and lower extremities. MUSCULOSKELETAL: Muscle strength and tone normal. SPINE: No scoliosis or deformity SKIN: No rashes CENTRAL NERVOUS SYSTEM: Lethargic, she is barely arousable No focal deficits, tone is normal in all 4 extremities. - Labs CBC & Chem 7: 01/09/22 07:45 01/09/22 07:45 Labs: Abnormal Lab Results - Last 24 Hours (Table) 01/08/22 01/09/22 01/09/22 Range/Units 06:56 07:45 07:45 WBC 12.8 H (3.8-10.6) k/uL RBC 3.28 L (3.80-5.40) m/uL Hgb 10.1 L (11.4-16.0) gm/dL Hct 32.5 L (34.0-46.0) % Neutrophils # 10.5 H (1.3-7.7) k/uL Lymphocytes # 0.8 L (1.0-4.8) k/uL Monocytes # 1.2 H (0-1.0) k/uL Chloride (98-107) mmol/L BUN (7-17) mg/dL Creatinine (0.52-1.04) mg/dL Procalcitonin 3.08 H 2.25 H (0.02-0.09) ng/mL 01/09/22 Range/Units 07:45 WBC (3.8-10.6) k/uL RBC (3.80-5.40) m/uL Hgb (11.4-16.0) gm/dL Hct (34.0-46.0) % Neutrophils # (1.3-7.7) k/uL Lymphocytes # (1.0-4.8) k/uL Monocytes # (0-1.0) k/uL Chloride 110 H (98-107) mmol/L BUN 53 H (7-17) mg/dL Creatinine 1.17 H (0.52-1.04) mg/dL Procalcitonin (0.02-0.09) ng/mL Microbiology - Last 24 Hours (Table) 01/07/22 10:25 Blood Culture - Preliminary Blood No Growth after 48 hours 01/06/22 07:47 Blood Culture - Preliminary Blood No Growth after 72 hours 01/08/22 06:56 Blood Culture - Preliminary Blood No Growth after 24 hours 01/04/22 13:20 Blood Culture Gram Stain - Final Blood Blood Culture - Final Pseudomonas stutzeri 01/04/22 13:05 Blood Culture Gram Stain - Final Blood Blood Culture - Final Pseudomonas stutzeri Assessment and Plan Plan: Assessment: #1. Acute hypoxic respiratory failure currently on 15 L of oxygen by nasal cannula. The patient has Bilateral pneumonia with pleural effusion consistent with Pseudomonas as the patient has Pseudomonas pneumonia and septicemia and the patient is currently on IV cefepime. #2. Pseudomonal bacteremia, blood cultures showed gram-negative bacilli in 2 different cultures from 01/04/2022, current coverage is with cefepime, blood cultures showed Pseudomonas stutzeri, sensitive to cefepime #3. Acute on chronic hypoxic respiratory failure related to the above, currently on 15 L O2 nasal cannula #4. Moderately severe COPD with a baseline FEV1 of 62% of predicted, on prednisone 5 mg daily and home oxygen at 2 L #5. New-onset A. fib with RVR, currently better controlled, cardiology is following. The patient continues to have persistent atrial fibrillation with tachycardia #6. Acute leukocytosis related to acute community acquired pneumonia, improving #7. Hyperlipidemia #8. Hypertension #9. Right lower extremity wound #10. Thoracic scoliosis/kyphosis #11. Acute metabolic encephalopathy, altered mental status related to sepsis Plan: Very poor prognosis Not a candidate for intubation mechanical ventilation This is a hospice care Continue current antibiotic coverage Given another dose of Lasix IV fluids to KVO We'll continue to follow patient's clinical course Very poor prognosis based on above-mentioned comorbidities. Case was discussed with the medical team.
--- NOTE | 2022-01-09 16:53 | P.PN ---
Subjective Progress Note Date: 01/09/22 (seen at 0915) Principal diagnosis: fevers Patient is an 86-year-old female with a history of COPD oxygen dependent on 2 L at all times, hypertension, and dyslipidemia who initially presented to the emergency department due to fevers and palpitations. In the ER she underwent an extensive evaluation. She was found have A. fib with RVR heart rate of 131. Chest x-ray demonstrated a left lower lobe infiltrate and she was also found to be septic. She was started on a heparin drip and Cardizem infusion to treat her A. fib with RVR. She was also started on Rocephin, Zithromax, and prednisone. Cardiology and pulmonary were consulted. Cardiology reviewed her EKG and felt that it was consistent with multifocal atrial tachycardia and therefore her heparin drip was stopped. She was transitioned to by mouth Cardizem. His blood cultures came back positive for Pseudomonas. Infectious disease was consulted. She was transitioned to cefepime. Echocardiogram showed ejection fraction 55- 60% with mild mitral regurgitation and mild pulmonary hypertension. Patient continued to decline despite maximum medical efforts, she was lethargic and unable to tolerate oral intake. She was seen by hospice on 01/08 however did not meet criteria for admission to general inpatient hospice. Patient seen and examined at bedside. She is moaning in bed and pulling at her telemetry. She is non verbal. General: ill appearing, moderate distress, appear at stated age Derm: warm, dry Head: atraumatic, normocephalic, symmetric Eyes: EOMI, no lid lag, anicteric sclera Mouth: no lip lesion, mucus membranes moist Cardiovascular: S1S2 reg, no murmur, positive posterior tibial pulse bilateral, Lungs: Decreased bs bilateral, no rhonchi, no rales , no accessory muscle use Abdominal: soft, nontender to palpation, no guarding, no appreciable organomegaly Ext: no gross muscle atrophy, no edema, no contractures Neuro: no tremors, moving b/l arms independently Psych: stuporous, appropriate affect Assessment/plan: Pseudomonas Community-acquired pneumonia with bacteremia with sepsis COPD with acute on chronic hypoxic respiratory failure Toxic metabolic encephalopathy - pulmonary recs appreciated - ID recs appreciated - on Cefepime - broncho dilators - comfort care Multifocal atrial tachycardia Elevated troponin - cardio recs appreciated - continue with cardizem if patient will take - comfort meds Chronic right lower extremity wound -Wound care consults -Protect the area with 2 with tubigrip Hypertension Dyslipidemia Resolved: Hypokalemia Hypomagnesemia Not appropriate for inpatient hospice per nurse. Discussed with family, see ACP code. Patient transitioned to comfort care. Objective - Vital Signs Vital signs: Vital Signs Temp 96.9 F L 01/09/22 08:03 Pulse 89 01/09/22 08:03 Resp 20 01/09/22 08:03 BP 96/45 01/09/22 08:03 Pulse Ox 96 01/09/22 08:03 Intake & Output 01/08/22 01/09/22 01/09/22 18:59 06:59 18:59 Intake Total 200 Output Total 1350 Balance -1150 Weight 36.287 kg Intake: Intake, IV Titration 200 Amount Sodium Chloride 0.9% 1, 200 000 ml @ 75 mls/hr IV . [id number] [facility] Rx#:[id number] Output: Urine 1350 Other: Voiding Method Bedside Commode External Catheter # Voids 2 - Labs CBC & Chem 7: 01/09/22 07:45 01/09/22 07:45 Labs: Abnormal Lab Results - Last 24 Hours (Table) 01/08/22 01/08/22 01/08/22 Range/Units 06:56 06:56 06:56 WBC 16.1 H (3.8-10.6) k/uL RBC 3.15 L (3.80-5.40) m/uL Hgb 9.8 L (11.4-16.0) gm/dL Hct 33.5 L (34.0-46.0) % MCV 106.2 H D (80.0-100.0) fL MCHC 29.4 L (31.0-37.0) g/dL Neutrophils # 13.3 H (1.3-7.7) k/uL Lymphocytes # 0.5 L (1.0-4.8) k/uL Monocytes # 1.8 H (0-1.0) k/uL Chloride 109 H (98-107) mmol/L BUN 50 H (7-17) mg/dL Creatinine 1.36 H (0.52-1.04) mg/dL Glucose 136 H (74-99) mg/dL Procalcitonin 3.08 H (0.02-0.09) ng/mL Microbiology - Last 24 Hours (Table) 01/07/22 10:25 Blood Culture - Preliminary Blood No Growth after 24 hours 01/04/22 13:20 Blood Culture Gram Stain - Final Blood Blood Culture - Final Pseudomonas stutzeri 01/04/22 13:05 Blood Culture Gram Stain - Final Blood Blood Culture - Final Pseudomonas stutzeri 01/06/22 07:47 Blood Culture - Preliminary Blood No Growth after 48 hours
--- NOTE | 2022-01-09 16:58 | P.PN ---
Progress Note - Text Progress Note Date: 01/09/22 (seen at 12:05) Advanced Care Planning: Diagnoses: Pneumonia Discussion: Person(s) present and participating in discussion: and daughter Summary: Discussed with family goals of care. They are aware that the patient is not improving. They want to ensure that she is comfortable and has dignity as she passes. They are now aware that patient was not admitted to hospice last evening, as they thought she had been. They are agree with stopping all life- prolonging medications and transition to comfort medications only. All questions answered. A total of 17 minutes of face to face time was spent discussing advanced care planning.
[2022-01-09] MEDS: MIRTAZAPINE 15 MG TAB PO SCH (20:20)
[2022-01-09 20:37] VITALS: RESP 20
--- NOTE | 2022-01-09 22:53 | P.PN ---
Subjective Progress Note Date: 01/09/22 Principal diagnosis: Gram-negative bacteremia Patient is 86-year female with multiple comorbidities presented to hospital with a fever tachycardia has been complaining of some shortness of breath and cough and did have evidence of gram-negative bacteremia. On today's evaluation that is 01/09/2022 the patient remains to be afebrile, the patient is sleepy lethargic and did not answer any question however patient is breathing comfortable on nasal oxygen no vomiting diarrhea or any other changes reported Objective - Vital Signs Vital signs: Vital Signs Temp 97.7 F 01/09/22 11:55 Pulse 113 H 01/09/22 11:55 Resp 21 01/09/22 11:55 BP 83/51 01/09/22 11:55 Pulse Ox 84 L 01/09/22 11:55 Intake & Output 01/08/22 01/09/22 01/09/22 18:59 06:59 18:59 Intake Total 200 Output Total 1350 Balance -1150 Weight 36.287 kg Intake: Intake, IV Titration 200 Amount Sodium Chloride 0.9% 1, 200 000 ml @ 75 mls/hr IV . [id number] [facility] Rx#:[id number] Output: Urine 1350 Other: Voiding Method Bedside Commode External Catheter External Catheter # Voids 2 - Exam GENERAL DESCRIPTION: Elderly female lying in bed, no distress. No tachypnea or accessory muscle of respiration use. LUNGS: Unlabored breathing. Decreased breath sound the base HEART: S1, S2, regular rate and rhythm. No loud murmur ABDOMEN: Soft, no tenderness , guarding or rigidity, no organomegaly EXTREMITIES: No edema of feet. - Labs CBC & Chem 7: 01/09/22 07:45 01/09/22 07:45 Labs: Abnormal Lab Results - Last 24 Hours (Table) 01/08/22 01/09/22 01/09/22 Range/Units 06:56 07:45 07:45 WBC 12.8 H (3.8-10.6) k/uL RBC 3.28 L (3.80-5.40) m/uL Hgb 10.1 L (11.4-16.0) gm/dL Hct 32.5 L (34.0-46.0) % Neutrophils # 10.5 H (1.3-7.7) k/uL Lymphocytes # 0.8 L (1.0-4.8) k/uL Monocytes # 1.2 H (0-1.0) k/uL Chloride (98-107) mmol/L BUN (7-17) mg/dL Creatinine (0.52-1.04) mg/dL Procalcitonin 3.08 H 2.25 H (0.02-0.09) ng/mL 01/09/22 Range/Units 07:45 WBC (3.8-10.6) k/uL RBC (3.80-5.40) m/uL Hgb (11.4-16.0) gm/dL Hct (34.0-46.0) % Neutrophils # (1.3-7.7) k/uL Lymphocytes # (1.0-4.8) k/uL Monocytes # (0-1.0) k/uL Chloride 110 H (98-107) mmol/L BUN 53 H (7-17) mg/dL Creatinine 1.17 H (0.52-1.04) mg/dL Procalcitonin (0.02-0.09) ng/mL Microbiology - Last 24 Hours (Table) 01/07/22 10:25 Blood Culture - Preliminary Blood No Growth after 48 hours 01/06/22 07:47 Blood Culture - Preliminary Blood No Growth after 72 hours 01/08/22 06:56 Blood Culture - Preliminary Blood No Growth after 24 hours 01/04/22 13:20 Blood Culture Gram Stain - Final Blood Blood Culture - Final Pseudomonas stutzeri 01/04/22 13:05 Blood Culture Gram Stain - Final Blood Blood Culture - Final Pseudomonas stutzeri Assessment and Plan (1) Bacteremia Current Visit: Yes Status: Acute Code(s): R78.81 - BACTEREMIA SNOMED Code(s): 6430125 Plan: 1patient with Pseudomonas bacteremia source likely pneumonia, patient fever has resolved and white count is trending down, patient to to continue with the cefepime while monitoring clinical course closely Time with Patient: Less than 30
[2022-01-09 23:13] VITALS: PULSE 133
--- NOTE | 2022-01-10 18:17 | P.DS ---
Providers Date of admission: 01/04/22 15:37 Expected date of discharge: 01/10/22 Attending physician: Jennifer Munguia MD Consults: 01/04/22 16:51 Consult Physician Routine Consulting Provider: Josue López Consult Reason/Comments: New-onset A. fib RVR Do you want consulting provider notified?: Yes, Notify in am 01/04/22 16:52 Consult Physician Routine Consulting Provider: Tutu Allen Consult Reason/Comments: Pneumonia in patient that has advanced COPD home oxygen dependent Do you want consulting provider notified?: Yes, Notify in am 01/05/22 12:40 Consult Physician Routine Consulting Provider: Gaurav Antunez Consult Reason/Comments: bacteremia Do you want consulting provider notified?: Yes Primary care physician: Reggie Wang MD Hospital Course: Discharge Diagnosis: Pseudomonas Community-acquired pneumonia with bacteremia with sepsis COPD with acute on chronic hypoxic respiratory failure Toxic metabolic encephalopathy Multifocal atrial tachycardia Elevated troponin Chronic right lower extremity wound Hypertension Dyslipidemia Hypokalemia Hypomagnesemia Hospital Course: Patient is an 86-year-old female with a history of COPD oxygen dependent on 2 L at all times, hypertension, and dyslipidemia who initially presented to the emergency department due to fevers and palpitations. In the ER she underwent an extensive evaluation. She was found have A. fib with RVR heart rate of 131. Chest x-ray demonstrated a left lower lobe infiltrate and she was also found to be septic. She was started on a heparin drip and Cardizem infusion to treat her A. fib with RVR. She was also started on Rocephin, Zithromax, and prednisone. Cardiology and pulmonary were consulted. Cardiology reviewed her EKG and felt that it was consistent with multifocal atrial tachycardia and therefore her heparin drip was stopped. She was transitioned to by mouth Cardizem. His blood cultures came back positive for Pseudomonas. Infectious disease was consulted. She was transitioned to cefepime. Echocardiogram showed ejection fraction 55- 60% with mild mitral regurgitation and mild pulmonary hypertension. Patient continued to decline despite maximum medical efforts, she was lethargic and unable to tolerate oral intake. She was seen by hospice on 01/08 however did not meet criteria for admission to general inpatient hospice. She was transitioned to comfort measures and was started on a morphine gtt. She passed peacefully on 01/10/22. A total of 25 minutes of time were spent preparing this complex discharge summary . Plan - Discharge Summary Discharge Rx Participant: No New Discharge Prescriptions: Discontinued amLODIPine [Norvasc] 10 mg PO DAILY 30 Days #30 tab No Action Ipratropium/Albuterol Sulfate [Combivent Respimat Inhaler] 2 puff INHALATION RT-QID PRN PRN Reason: uses as alternative to duoneb Fluticasone/Vilanterol [Breo Ellipta 200-25 Mcg Inhaler] 1 puff INHALATION RT-DAILY Ipratropium-Albuterol Nebulize [Duoneb 0.5 mg-3 mg/3 ml Soln] 3 ml INHALATION RT-QID ampul.neb predniSONE 5 mg PO DAILY Metoprolol Tartrate [Lopressor] 50 mg PO BID 30 Days #60 tab Atorvastatin [Lipitor] 20 mg PO HS Mirtazapine 7.5 mg PO HS Discharge Medication List Fluticasone/Vilanterol [Breo Ellipta 200-25 Mcg Inhaler] 1 puff INHALATION RT- DAILY 09/09/17 [History] Ipratropium/Albuterol Sulfate [Combivent Respimat Inhaler] 2 puff INHALATION RT- QID PRN 09/09/17 [History] Ipratropium-Albuterol Nebulize [Duoneb 0.5 mg-3 mg/3 ml Soln] 3 ml INHALATION RT-QID ampul.neb 09/12/17 [Rx] predniSONE 5 mg PO DAILY 12/26/20 [History] Metoprolol Tartrate [Lopressor] 50 mg PO BID 30 Days #60 tab 12/28/20 [Rx] Atorvastatin [Lipitor] 20 mg PO HS 01/04/22 [History] Mirtazapine 7.5 mg PO HS 01/04/22 [History] Follow up Appointment(s)/Referral(s): Reggie Wang MD [Primary Care Provider] - 1-2 days [facility], [NON-STAFF] - Discharge Disposition: - Preliminary Cause of Preliminary Cause of : pneumonia and bactermia
== END 2022-01-10 02:38 | disposition expired | DRG 871 ==
LOC: EC 12:06 → 3SCARD 15:37
PROVIDERS: ADMIT Internal Medicine; ATTEND Internal Medicine
DX: A41.50 Gram-negative sepsis, unspecified (principal); G92.8 Other toxic encephalopathy; J15.1 Pneumonia due to Pseudomonas; J96.21 Acute and chronic respiratory failure with hypoxia; I13.0 Hypertensive heart and chronic kidney disease with heart failure and stage 1 through stage 4 chronic kidney disease, or unspecified chronic kidney disease; I47.1 Supraventricular tachycardia; I48.19 Other persistent atrial fibrillation; J44.0 Chronic obstructive pulmonary disease with (acute) lower respiratory infection; J44.1 Chronic obstructive pulmonary disease with (acute) exacerbation; J98.11 Atelectasis; L97.811 Non-pressure chronic ulcer of other part of right lower leg limited to breakdown of skin; N17.9 Acute kidney failure, unspecified; R17 Unspecified jaundice; R64 Cachexia; N18.4 Chronic kidney disease, stage 4 (severe); E78.5 Hyperlipidemia, unspecified; Z99.81 Dependence on supplemental oxygen; F32.A Depression, unspecified; Z20.822 Contact with and (suspected) exposure to COVID-19; I27.20 Pulmonary hypertension, unspecified; I50.9 Heart failure, unspecified; I95.9 Hypotension, unspecified; Z51.5 Encounter for palliative care; Z66 Do not resuscitate; I08.1 Rheumatic disorders of both mitral and tricuspid valves; M19.90 Unspecified osteoarthritis, unspecified site; I25.2 Old myocardial infarction; M46.02 Spinal enthesopathy, cervical region; M41.9 Scoliosis, unspecified; E55.9 Vitamin D deficiency, unspecified; E87.6 Hypokalemia; M81.0 Age-related osteoporosis without current pathological fracture; E83.42 Hypomagnesemia; R77.8 Other specified abnormalities of plasma proteins; T50.1X5A Adverse effect of loop [high-ceiling] diuretics, initial encounter; Z79.899 Other long term (current) drug therapy; Z83.2 Family history of diseases of the blood and blood-forming organs and certain disorders involving the immune mechanism; Z82.49 Family history of ischemic heart disease and other diseases of the circulatory system; Z87.891 Personal history of nicotine dependence; Z98.890 Other specified postprocedural states; Z86.010 Personal history of colon polyps; Z90.89 Acquired absence of other organs
CPT/HCPCS: 36415; 70450; 71045; 71046; 80048; 80053; 80061; 81001; 82140; 83605; 83735; 83880; 84145; 84484; 85025; 85027; 85610; 85730; 87040; 87077; 87186; 87502; 87635; 93005; 93306; 94640; 94760; 96361; 96365; 96366; 96367; 96375; 96376; 99285